=== PATIENT | male | born 1970 | race African-American/Black ===

== ENCOUNTER 2016-09-07 20:25 | Emergency (ER) | payer MEDICARE, MEDICAID ==
[~2016-09-07] VITALS: Ht 175.3 cm; Wt 116.1 kg
[~2016-09-07 20:25] MED LIST: ACHD5005 PO; AMIT25TA9 PO; CYCL10TA9 PO; HYDR-3816 PO; HYDR-757 PO; LEVO500T69 PO; LOXA25CA PO; METO-270 PO; PARO20TA5 PO; PRD20T PO; SULF1TAB35 PO
[2016-09-07] MEDS ORDERED: ASPIRIN 81 MG CHEW (CHILDREN'S ASA) PO ONE (20:45)
[2016-09-07] MEDS ORDERED: RX-NITROGLYCERIN 0.4 MG TAB BTL 25'S SL PRN (20:45)
[2016-09-07] MEDS ORDERED: KETOROLAC 30 MG/ML VIAL IVP ONE (21:00)
[2016-09-07 21:01] LABS: INR 0.9 (0.8-1.4); PROTHROMBIN TIME PATIENT 12.3 SEC (12.2-14.7)
[2016-09-07 21:05] LABS: BASOPHILS % (AUTO) 1 % (0-10); EOSINOPHILS # (AUTO) 0.1 10^3/uL (0.0-0.3); EOSINOPHILS % (AUTO) 2 % (0-10); LYMPHOCYTES # (AUTO) 3.1 X 10^3 (1.0-4.0); LYMPHOCYTES % (AUTO) 53 % (12-44); MEAN CORPUSCULAR HEMOGLOBIN 29 PG (25-34); MEAN CORPUSCULAR HGB CONC 34 G/DL (32-36); MEAN CORPUSCULAR VOLUME 85 FL (80-99); MEAN PLATELET VOLUME 10.1 FL (7.4-10.4); MONOCYTES # (AUTO) 0.4 X 10^3 (0.0-1.0); MONOCYTES % (AUTO) 7 % (0-12); NEUTROPHILS # (AUTO) 2.3 X 10^3 (1.8-7.8); NEUTROPHILS % (AUTO) 38 % (42-75); PLATELET COUNT 266 10^3/uL (130-400); RED CELL DISTRIBUTION WIDTH 13.5 % (10.0-14.5); WHITE BLOOD COUNT 5.9 10^3/uL (4.3-11.0)
[2016-09-07 21:12] LABS: ALANINE AMINOTRANSFERASE 30 U/L (0-55); ALBUMIN 4.1 G/DL (3.2-4.5); AMYLASE 75 U/L (25-125); ANION GAP 8 MMOL/L (5-14); ASPARTATE AMINO TRANSFERASE 26 U/L (5-34); BILIRUBIN,TOTAL 0.3 MG/DL (0.1-1.0); BLOOD UREA NITROGEN 10 MG/DL (7-18); BUN/CREATININE RATIO 8; CALCIUM 8.9 MG/DL (8.5-10.1); CARBON DIOXIDE 24 MMOL/L (21-32); CHLORIDE 109 MMOL/L (98-107); CREATINE KINASE 539 U/L (30-200); GFR ESTIMATED > 60; GLUCOSE 92 MG/DL (70-105); LIPASE 21 U/L (8-78); MAGNESIUM 2.2 MG/DL (1.8-2.4); POTASSIUM 3.7 MMOL/L (3.6-5.0); SODIUM 141 MMOL/L (135-145); TOTAL PROTEIN 6.8 G/DL (6.4-8.2)
[2016-09-07 21:19] LABS: TROPONIN I < 0.30 NG/ML (<0.30)
--- NOTE | 2016-09-07 21:44 | Diagnostic Imaging Report ---
INDICATION: Chest pain radiating to the back and left shoulder. EXAMINATION: Chest 09/07/2016 COMPARISON: 12/15/2012 FINDINGS: The heart is slightly prominent. The pulmonary vasculature is normal in appearance. There are no infiltrates or effusions. There is no pneumothorax. IMPRESSION: 1. No acute process. Dictated by: Dictated on workstation # [id number]
--- NOTE | 2016-09-07 21:51 | Diagnostic Imaging Report ---
INDICATION: Chest pain for four days. Sore throat. Headache. EXAMINATION: CT brain and CT cervical spine, 08/19/2016. COMPARISON: No priors available for comparison. CT BRAIN: No acute hemorrhage or infarct is seen. There is no mass, mass effect or midline shift and there is no hydrocephalus. The visualized sinuses demonstrate no acute disease. A hyperdensity extends into the right maxillary sinus which appears to represent a portion of the patient's tooth, perhaps impacted into the sinus. A more anteriorly located density is noted and appears to represent a possible osteoma/bone island with a nonspecific excrescence extending into the right anterior maxillary sinus, nonspecific as well, but fairly benign in appearance. The remaining sinuses demonstrate no gross abnormality. Visualized mastoid air cells appear clear. IMPRESSION: 1. No acute intracranial process. 2. Sinus findings in the right maxillary sinus, as discussed above, likely all of a chronic and benign etiology but a followup with a CT of the sinuses on a nonemergent basis could be performed as clinically warranted. CT CERVICAL SPINE: There is normal height and alignment of the vertebral bodies. No acute fractures or subluxations are appreciated. Lung apices demonstrate nonspecific linear densities, posteriorly, and bilaterally symmetric; therefore, likely a benign process, perhaps focal scarring. The prevertebral soft tissues demonstrate no evidence for acute abnormality. IMPRESSION: Incidental findings discussed above. No acute osseous abnormality. Dictated by: Dictated on workstation # [id number]
[2016-09-07] MEDS ORDERED: RX-NAPROXEN (NAPROSYN) 250 MG TAB PPK#4 PO STA (22:33)
[2016-09-07] MEDS ORDERED: CYCL10TA9 PO (22:38)
[2016-09-07] MEDS ORDERED: HYDR-87 PO (22:38)
--- NOTE | 2016-09-07 22:38 | ED Chest Pain ---
General Chief Complaint: Chest Pain Stated Complaint: CHEST PAIN/L ARM NUMBNESS/SORE THROAT Nursing Triage Note: pt c/o chest pain x 4 days, with tingling in left arm. sore throat starting yesterday. Nursing Sepsis Screen: No Definite Risk Source: patient History of Present Illness Time seen by provider: 20:20 Initial Comments PT ARRIVES VIA POV FROM HOME C/O CHEST PAIN X 4-5 DAYS, RADIATES TO LEFT TRAPEZIUS AREA C/O LEFT ARM NUMBNESS/TINGLING--NO MOTOR DEFICITS STATES ARM IS WORSE TODAY SYMPTOMS ARE CONSTANT, AND NOTHING WORSENS OR IMPROVES PAIN RATES PAIN 10/10 NO SHORTNESS OF BREATH NO SWEATS NO COUGH NO FEVER NO SWELLING IN LEGS/ FEET OR PAIN IN CALVES NO NAUSEA/VOMITING NO DIZZINESS NO PALPITATIONS ALSO C/O SORE THROAT SINCE YESTERDAY--ALL FAMILY SICK WITH STREP THROAT PCP:[facility] Allergies and Home Medications Allergies Coded Allergies: No Known Drug Allergies (Unverified , 12/15/12) Home Medications Amitriptyline HCl 25 Mg Tablet #90 75 MG PO HS (Reported) Cyclobenzaprine HCl 10 Mg Tablet #15 10 MG PO Q8H PRN PRN SPASMS Prescribed by: FARHAD GALLEGO on 01/02/16 0312 Cyclobenzaprine HCl 10 Mg Tablet #15 10 MG PO Q8H Prescribed by: ORIANA MCNULTY on 09/07/162237 Hydrocodone/Ibuprofen 1 Each Tablet #15 1-2 EACH PO Q4H Prescribed by: ORIANA MCNULTY on 09/07/162237 Loxapine Succinate 25 Mg Capsule #30 1 CAP PO DAILY (Reported) Metoprolol Succinate 25 Mg Tab.er.24h #30 1 TAB PO DAILY (Reported) Paroxetine HCl 20 Mg Tablet #30 1 TAB PO DAILY (Reported) Review of Systems Constitutional: no symptoms reported EENTM: See HPI Throat Pain Respiratory: No Symptoms Reported Cardiovascular: See HPI Chest PainDenies Edema, Denies Lightheadedness, Denies Palpitations, Denies Syncope Gastrointestinal: No Symptoms Reported Genitourinary: No Symptoms Reported Musculoskeletal: see HPI Skin: no symptoms reported Psychiatric/Neurological: See HPI Numbness Paresthesia TinglingDenies Weakness Endocrine: No Symptoms Reported Hematologic/Lymphatic: No Symptoms Reported Past Jpuvyci-Sxizvt-Fdtqes Hx Patient Social History Alcohol Use: Regular Use (12 PACK/MONTH) Recreational Drug Use: Yes (THC) Smoking Status: Current Everyday Smoker (< 1 PPD) Recent Foreign Travel: No Contact w/Someone Who Travel: No Recent Infectious Disease Expo: No Recent Hopitalizations: No Physical Abuse Screen: No Sexual Abuse: No Seasonal Allergies Seasonal Allergies: Yes Surgeries HX Surgeries: Yes (LT FOOT TRAUMA) Respiratory Hx Respiratory Disorders: No Cardiovascular Hx Cardiac Disorders: Yes Cardiac Disorders: Hypertension Neurological Hx Neurological Disorders: Yes Neurological Disorders: Seizure Disorder Reproductive System Hx Reproductive Disorders: No Genitourinary Hx Genitourinary Disorders: Yes (FREQUENT URINATION) Gastrointestinal Hx Gastrointestinal Disorders: No Musculoskeletal Hx Musculoskeletal Disorders: Yes (LEFT KNEE PROBLEMS) Endocrine Hx Endocrine Disorders: No HEENT HX ENT Disorders: No Cancer Hx Cancer: No Psychosocial Hx Psychiatric Problems: Yes Behavioral Health Disorders: Anxiety, Suicide Attempts, Schizophrenia, Depression Integumentary HX Skin/Integumentary Disorder: No Blood Transfusions Hx Blood Disorders: No Adverse Reaction to a Blood Tr: No Physical Exam Vital Signs Vital Sign - Last 12Hours 09/07/16 09/07/16 20:35 22:57 Temp 97.5 Pulse 80 Resp 16 B/P 176/112 Pulse Ox 96 O2 Delivery Room Air Capillary Refill : Less Than 3 Seconds General Appearance: No Apparent Distress WD/WN Other (FLAT AFFECT. DOES NOT APPEAR TO BE IN ANY DISCOMFORT) HEENT: PERRL/EOMI Normal ENT Inspection Neck: Full Range of Motion Normal Inspection Non Tender SuppleNo Carotid Bruit , No JVD Respiratory: Normal Breath Sounds No Accessory Muscle Use No Respiratory Distress Other (MARKED TENDERNESS TO LEFT CHEST WALL, LEFT LATERAL NECK AND TRAPEZIUS MUSCLE WITH MUSCLE SPASM. PALPATION DRAMATICALLY REPRODUCES PAIN) Cardiovascular: Regular Rate, Rhythm No Edema No JVD No Murmur Normal Peripheral Pulses Gastrointestinal: Normal Bowel Sounds No Organomegaly No Pulsatile Mass Non Tender Soft Extremity: Normal Capillary Refill Normal Inspection Normal Range of Motion Non Tender No Calf Tenderness No Pedal Edema Neurologic/Psychiatric: Alert Oriented x3 No Motor/Sensory Deficits filter tank tender helper head II- XII Norm as Tested Skin: Normal Color Warm/DryNo Rash Laceration Repair : Suture Size: 5-0 Progress/Results/Core Measures Results/Orders Lab Results Laboratory Tests Test 09/07/16 20:43 Range/Units Activated Partial Thromboplast Time 31 24-35 SEC Alanine Aminotransferase (ALT/SGPT) 30 0-55 U/L Albumin 4.1 3.2-4.5 G/DL Alkaline Phosphatase 73 40-136 U/L Amylase Level 75 25-125 U/L Anion Gap 8 5-14 MMOL/L Aspartate Amino Transf (AST/SGOT) 26 5-34 U/L B-Type Natriuretic Peptide < 10.0 <100.0 PG/ML BUN/Creatinine Ratio 8 Basophils # (Auto) 0.0 0.0-0.1 10^3/uL Basophils (%) (Auto) 1 0-10 % Blood Urea Nitrogen 10 7-18 MG/DL Calcium Level 8.9 8.5-10.1 MG/DL Carbon Dioxide Level 24 21-32 MMOL/L Chloride Level 109 H 98-107 MMOL/L Creatine Kinase MB 2.4 <6.6 NG/ML Creatinine 1.30 0.60-1.30 MG/DL Eosinophils # (Auto) 0.1 0.0-0.3 10^3/uL Eosinophils (%) (Auto) 2 0-10 % Estimat Glomerular Filtration Rate > 60 Glucose Level 92 70-105 MG/DL Hematocrit 42 40-54 % Hemoglobin 14.0 13.3-17.7 G/DL INR Comment 0.9 0.8-1.4 Lipase 21 8-78 U/L Lymphocytes # (Auto) 3.1 1.0-4.0 X 10^3 Lymphocytes (%) (Auto) 53 H 12-44 % Magnesium Level 2.2 1.8-2.4 MG/DL Mean Corpuscular Hemoglobin 29 25-34 PG Mean Corpuscular Hemoglobin Concent 34 32-36 G/DL Mean Corpuscular Volume 85 80-99 FL Mean Platelet Volume 10.1 7.4-10.4 FL Monocytes # (Auto) 0.4 0.0-1.0 X 10^3 Monocytes (%) (Auto) 7 0-12 % Neutrophils # (Auto) 2.3 1.8-7.8 X 10^3 Neutrophils (%) (Auto) 38 L 42-75 % Platelet Count 266 130-400 10^3/uL Potassium Level 3.7 3.6-5.0 MMOL/L Prothrombin Time 12.3 12.2-14.7 SEC Red Blood Count 4.90 4.35-5.85 10^6/uL Red Cell Distribution Width 13.5 10.0-14.5 % Sodium Level 141 135-145 MMOL/L Total Bilirubin 0.3 0.1-1.0 MG/DL Total Creatine Kinase 539 H 30-200 U/L Total Protein 6.8 6.4-8.2 G/DL Troponin I < 0.30 <0.30 NG/ML White Blood Count 5.9 4.3-11.0 10^3/uL My Orders Orders-ORIANA MCNULTY DO Amylase (09/07/16 20:33) Cbc With Automated Diff (09/07/16 20:33) Comprehensive Metabolic Panel (09/07/16 20:33) Creatine Kinase (09/07/16 20:33) Creatine Kinase Mb (09/07/16 20:33) Lipase (09/07/16 20:33) Partial Thromboplastin Time (09/07/16 20:33) Protime With Inr (09/07/16 20:33) Troponin I (09/07/16 20:33) Chest 1 View, Ap/Pa Only (09/07/16 20:33) O2 (09/07/16 20:33) Ekg Tracing (09/07/16 20:33) Aspirin Chewable Tablet (Baby Aspirin Ch (09/07/16 20:45) Rx-Nitroglycerin Sl Tabs (Rx-Nitrostat S (09/07/16 20:45) BNP (09/07/16 20:33) Monitor-Rhythm Ecg Trace Only (09/07/16 20:33) Magnesium (09/07/16 20:33) Ketorolac Injection (Toradol Injection) (09/07/16 21:00) Ct Head/Cervical Spine Wo (09/07/16 20:54) Rx-Naproxen (Rx-Naprosyn) (09/07/16 22:33) Rx-Acetaminophen/Codeine (Rx-Tylenol #3) (09/07/16 22:45) Medications Given in ED Vital Signs/I&O Vital Sign - Last 12Hours 09/07/16 09/07/16 09/07/16 20:35 20:35 22:57 Temp 97.5 Pulse 80 66 Resp 16 13 B/P 176/112 Pulse Ox 96 O2 Delivery Room Air Room Air Room Air Blood Pressure Mean: 133 Progress Note : Progress Note PAIN RESOLVED WITH TORADOL ECG Initial ECG Impression Time: 20:42 Initial ECG Rate: 77 Initial ECG Rhythm: Normal Sinus Initial ECG Impression: 1st Degree AV Block Initial ECG Comparisson: Unchanged Diagnostic Imaging Comments CXR--NO ACUTE PROCESS CT HEAD/CERVICAL SPINE--NO ACUTE PROCESS PER RADIOLOGIST REPORTS @ 2224 Reviewed: Reviewed by Me Departure Impression Impression: Primary Impression: Left-sided chest wall pain Additional Impressions: LEFT TRAPEZIUS MUSCLE PAIN AND SPASMS Tingling of left upper extremity Disposition: HOME, SELF-CARE Condition: Improved Departure-Patient Inst. Referrals: NO,LOCAL PHYSICIAN (PCP/Family) Primary Care Physician Patient Instructions: Chest Pain That Is Not Caused by the Heart (DC), Muscle Spasms (DC), Muscle and Bone Pain (DC) Add. Discharge Instructions: MOIST HEAT TO SORE AREAS AT 20 MINUTE INTERVALS FOLLOW UP WITH YOUR DR IN 2-3 DAYS FOR FURTHER CARE RETURN TO ER IF WORSE All discharge instructions reviewed with patient and/or family. Voiced understanding. Scripts Hydrocodone/Ibuprofen (Hydrocodone-Ibuprofen 7.5-200)1 Each Tablet1-2 Each PO Q4H Pain #15 TAB Prov:ORIANA MCNULTY DO 09/07/16 Cyclobenzaprine HCl 10 Mg Fwsyse16 Mg PO Q8H #15 TAB Prov:ORIANA MCNULTY DO 09/07/16 ORIANA MCNULTY DO Sep 07, 2016 22:38
[2016-09-07] MEDS ORDERED: RX-ACETAMINOPHEN/CODEINE TAB PPK #4 PO SCH (22:45)
[2016-09-07 22:57] VITALS: BP 137/95
== END 2016-09-07 22:57 | disposition home or self-care (01) ==
LOC: EDUNIT# 20:25 → ER 20:27
DX: R07.89 Other chest pain (principal); R20.2 Paresthesia of skin; I10 Essential (primary) hypertension; G40.909 Epilepsy, unspecified, not intractable, without status epilepticus; F17.210 Nicotine dependence, cigarettes, uncomplicated; Z79.899 Other long term (current) drug therapy
CPT/HCPCS: 36415; 70450; 71010; 72125; 80053; 82150; 82550; 82553; 83690; 83735; 83880; 84484; 85025; 85610; 85730; 93005; 96374

== ENCOUNTER 2016-12-11 11:33 | Emergency (ER) | payer MEDICARE, MEDICAID ==
[~2016-12-11] VITALS: Ht 175.3 cm; Wt 106.6 kg
[~2016-12-11 11:33] MED LIST changes: +HYDR-87 PO
--- NOTE | 2016-12-11 11:41 | ED Lower Extremity ---
General Stated Complaint: LEFT ANKLE/FOOT INJURY Source: patient Exam Limitations: no limitations History of Present Illness Time seen by provider: 11:39 Initial Comments To ER with pain in the left ankle and foot after twisting the foot when it hit a dumbbell wall walking into upon shop yesterday. Has a history of previous fracture to this foot. He is taken nothing at home for pain but rates his pain at 10 out of 10. Onset: yesterday Severity: moderate Pain/Injury Location: left foot, left ankle Method of Injury: twisted Modifying Factors: Worse With Movement Allergies and Home Medications Allergies Coded Allergies: No Known Drug Allergies (Unverified , 12/15/12) Home Medications Amitriptyline HCl 25 Mg Tablet, 75 MG PO HS, #90 (Reported) Cyclobenzaprine HCl 10 Mg Tablet, 10 MG PO Q8H PRN for SPASMS, #15 Prescribed by: FARHAD GALLEGO on 01/02/16 0312 Cyclobenzaprine HCl 10 Mg Tablet, 10 MG PO Q8H, #15 Prescribed by: ORIANA MCNULTY on 09/07/16 2238 Loxapine Succinate 25 Mg Capsule, 1 CAP PO DAILY, #30 (Reported) Metoprolol Succinate 25 Mg Tab.er.24h, 1 TAB PO DAILY, #30 (Reported) Paroxetine HCl 20 Mg Tablet, 1 TAB PO DAILY, #30 (Reported) Constitutional: see HPI EENTM: see HPI Respiratory: no symptoms reported Cardiovascular: no symptoms reported Genitourinary: no symptoms reported Musculoskeletal: see HPI Skin: no symptoms reported Psychiatric/Neurological: No Symptoms Reported Past Feczgin-Brsira-Taalxn Hx Patient Social History Recent Foreign Travel: No Contact w/Someone Who Travel: No Recent Hopitalizations: No Seasonal Allergies Seasonal Allergies: Yes Surgeries HX Surgeries: Yes (LT FOOT TRAUMA) Respiratory Hx Respiratory Disorders: No Cardiovascular Hx Cardiac Disorders: Yes Cardiac Disorders: Hypertension Neurological Hx Neurological Disorders: Yes Neurological Disorders: Seizure Disorder Reproductive System Hx Reproductive Disorders: No Genitourinary Hx Genitourinary Disorders: Yes (FREQUENT URINATION) Gastrointestinal Hx Gastrointestinal Disorders: No Musculoskeletal Hx Musculoskeletal Disorders: Yes (LEFT KNEE PROBLEMS) Endocrine Hx Endocrine Disorders: No HEENT HX ENT Disorders: No Cancer Hx Cancer: No Psychosocial Hx Psychiatric Problems: Yes Behavioral Health Disorders: Anxiety, Suicide Attempts, Schizophrenia, Depression Integumentary HX Skin/Integumentary Disorder: No Blood Transfusions Hx Blood Disorders: No Adverse Reaction to a Blood Tr: No Physical Exam Vital Signs Vital Sign - Last 12Hours 12/11/16 11:37 Temp 97.3 Pulse 79 Resp 18 B/P (MAP) 127/81 Pulse Ox 96 O2 Delivery Room Air Capillary Refill : General Appearance: WD/WN, no apparent distress HEENT: PERRL/EOMI, normal ENT inspection Respiratory: no respiratory distress, no accessory muscle use Hips: bilateral hip non-tender, bilateral hip normal inspection, bilateral hip normal range of motion Legs: bilateral leg non-tender, bilateral leg normal inspection, bilateral leg normal range of motion Knees: bilateral knee non-tender, bilateral knee normal inspection, bilateral knee normal range of motion Ankles: bilateral ankle normal inspection, bilateral ankle normal range of motion, left ankle pain, left ankle soft tissue tenderness, left ankle other ( no swelling or obvious deformity) Feet: bilateral foot normal inspection, bilateral foot normal range of motion Neurologic/Tendon: normal sensation, normal motor functions Neurologic/Psychiatric: alert, normal mood/affect, oriented x 3 Skin: normal color, warm/dry Laceration Repair : Suture Size: 5-0 Progress/Results/Core Measures Results/Orders My Orders Orders - JULIANA CARMONA APRN Ankle, Left, 3 Views (12/11/16 11:39) Foot, Left, 3 Views (12/11/16 11:39) Ibuprofen Tablet (Motrin Tablet) (12/11/16 11:45) Medications Given in ED Current Medications Medications Dose Ordered Sig/Yazmin Route Start Time Stop Time Status Last Admin Dose Admin Ibuprofen 800 mg ONCE ONCE PO 12/11/16 11:45 12/11/16 11:46 DC 12/11/16 11:54 800 MG Vital Signs/I&O Vital Sign - Last 12Hours 12/11/16 11:37 Temp 97.3 Pulse 79 Resp 18 B/P (MAP) 127/81 Pulse Ox 96 O2 Delivery Room Air Departure Impression Impression: Primary Impression: Ankle sprain Disposition: 01 HOME, SELF-CARE Condition: Stable Departure-Patient Inst. Decision time for Depature: 12:09 Referrals: [facility] (PCP/Family) Primary Care Physician Patient Instructions: Ankle Sprain (DC) Add. Discharge Instructions: 1. Ice pack to the ankle 2. Crutches as needed for pain with walking 3. Follow-up with your doctor next week for any persistent pain 4. Scripts Naproxen (Naproxen) 500 Mg Tablet 500 MG PO BID Y for PAIN-MODERATE, #14 TAB Prov: JULIANA CARMONA APRN 12/11/16 JULIANA CARMONA APRN Dec 11, 2016 11:41
[2016-12-11] MEDS ORDERED: IBUPROFEN 800 MG (MOTRIN) TAB PO ONE (11:45)
--- NOTE | 2016-12-11 12:04 | Diagnostic Imaging Report ---
Three views of the left ankle. INDICATION: Left ankle pain. FINDINGS: No fracture, dislocation or radiopaque foreign body. The ankle mortise is normal in configuration. IMPRESSION: Unremarkable exam. Dictated by: Dictated on workstation # [id number]
--- NOTE | 2016-12-11 12:04 | Diagnostic Imaging Report ---
3 views of the left foot. INDICATION: Left foot pain. FINDINGS: No fracture, dislocation or radiopaque foreign body seen. Joint alignment is satisfactory. There is mild dorsal osteophyte formation seen at the tarsometatarsal joints. IMPRESSION: Mild degenerative changes. Dictated by: Dictated on workstation # [id number]
[2016-12-11] MEDS ORDERED: NAPR500T3 PO (12:10)
[2016-12-11 12:26] VITALS: BP 127/81
== END 2016-12-11 12:24 | disposition home or self-care (01) ==
LOC: EDUNIT# 11:33 → ER 11:36
DX: S99.912A Unspecified injury of left ankle, initial encounter (principal); I10 Essential (primary) hypertension; G40.909 Epilepsy, unspecified, not intractable, without status epilepticus; Z79.899 Other long term (current) drug therapy; W21.89XA Striking against or struck by other sports equipment, initial encounter; Y92.513 Shop (commercial) as the place of occurrence of the external cause; Y99.8 Other external cause status
CPT/HCPCS: 73610; 73630; 99283

== ENCOUNTER 2017-07-17 19:28 | Emergency (ER) | payer OTHER, MEDICARE, MEDICAID ==
[~2017-07-17] VITALS: Ht 175.3 cm; Wt 119.7 kg
[~2017-07-17 19:28] MED LIST changes: -METO-270 PO; +METO-387 PO; +NAPR500T4 PO
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
[2017-07-17] MEDS ORDERED: RX-CYCLOBENZAPRINE 10 MG (FLEXERIL) TAB PPK#3 PO STA (21:54)
[2017-07-17] MEDS ORDERED: RX-NAPROXEN (NAPROSYN) 250 MG TAB PPK#4 PO STA (21:54)
[2017-07-17] MEDS ORDERED: NAPR500T4 PO (21:54)
[2017-07-17] MEDS ORDERED: CYCL10TA9 PO (21:54)
[2017-07-17 21:59] VITALS: BP 158/89
== END 2017-07-17 21:59 | disposition home or self-care (01) ==
LOC: EDUNIT# 19:28 → ER 19:30
DX: S16.1XXA Strain of muscle, fascia and tendon at neck level, initial encounter (principal); S29.012A Strain of muscle and tendon of back wall of thorax, initial encounter; R91.1 Solitary pulmonary nodule; I10 Essential (primary) hypertension; G40.909 Epilepsy, unspecified, not intractable, without status epilepticus; F41.9 Anxiety disorder, unspecified; F32.9 Major depressive disorder, single episode, unspecified; F20.9 Schizophrenia, unspecified; Z91.5 Personal history of self-harm; V43.52XA Car driver injured in collision with other type car in traffic accident, initial encounter
CPT/HCPCS: 70450; 72125; 72128; 99283

== ENCOUNTER → 2017-07-24 | Outpatient (CLI) | payer MEDICARE, MEDICAID ==
[~2017-07-24] MED LIST changes: +IOHEXOL 350 MG/ML 100 ML (OMNIPAQUE 350) VIAL IV ONE; +NS 100 ML (IVPB) BAG IV ONE
--- NOTE | 2017-07-24 15:53 | Diagnostic Imaging Report ---
PROCEDURE: CT chest with contrast only. TECHNIQUE: Multiple contiguous axial images were obtained through the chest after administration of intravenous contrast. INDICATION: Left chest pain. Pulmonary nodule. CONTRAST: 75 mL of Omnipaque 350 was administered intravenously. FINDINGS: Groundglass nodules are seen in the right upper lobe in the suprahilar region up to 8 mm in size. These appear of decreased density compared to the 07/17/2017 exam. This is in favor of pneumonitis. No significant nodule or mass is seen in the left lung. The heart size is normal. No pericardial or pleural effusion. The thoracic aorta is normal in caliber. There is a small pericardial effusion minimally distending the pericardial recesses. There is no mediastinal mass or lymphadenopathy. No hilar or axillary lymphadenopathy is seen. There is a left adrenal nodule measuring 1.9 cm in size with low density seen favoring an adenoma. The osseous structures appear grossly unremarkable. IMPRESSION: 1. Groundglass density nodules up to 8 mm in size in the right upper lobe in the suprahilar region are favored to be pneumonitis related. A 3 month followup low-dose protocol CT scan of the chest is recommended to ensure stability or resolution. 2. Left adrenal nodule measuring 1.9 cm is favored to be an adenoma. Dictated by: Dictated on workstation # [id number]
== END ==
LOC: RAD 12:32
PROVIDERS: ATTEND Internal Medicine
DX: R91.8 Other nonspecific abnormal finding of lung field (principal); E04.1 Nontoxic single thyroid nodule
CPT/HCPCS: 71260

== ENCOUNTER 2017-10-03 13:00 | Outpatient (RCR) | payer OTHER, MEDICARE, MEDICAID ==
[~2017-10-03 13:00] MED LIST changes: +HYDR-34 PO; -HYDR-3816 PO; -IOHEXOL 350 MG/ML 100 ML (OMNIPAQUE 350) VIAL IV ONE; -NS 100 ML (IVPB) BAG IV ONE
== END 2017-10-03 13:26 | disposition home or self-care (01) ==
PROVIDERS: ATTEND Internal Medicine
DX: M54.5 Low back pain (principal)

== ENCOUNTER → 2017-10-25 | Outpatient (CLI) | payer MEDICARE, MEDICAID ==
[~2017-10-25] MED LIST changes: +CATHETER FLUSH 10 ML SYR IV PRN; +IOHEXOL 350 MG/ML 100 ML (OMNIPAQUE 350) VIAL IV ONE; +NAPR-915 PO; -NAPR500T4 PO; +NS 250 ML (IVPB) BAG IV ONE
--- NOTE | 2017-10-25 09:13 | Diagnostic Imaging Report ---
PROCEDURE: CT chest with contrast only. TECHNIQUE: Multiple contiguous axial images were obtained through the chest after administration of intravenous contrast. INDICATION: Pulmonary nodules. FINDINGS: No axillary, hilar or mediastinal lymphadenopathy is seen. There is minimal pericardial fluid in the superior pericardial recess and in the region of the AP window, similar to prior study. No pleural fluid is detected. Parenchymal evaluation demonstrates the lungs to be clear. The previously noted groundglass and slightly nodular densities in the right upper lobe have resolved suggestive of resolving pneumonia. No new infiltrate is seen. The upper abdomen is unremarkable. IMPRESSION: Resolution of previously noted right upper lobe groundglass infiltrates when compared with examination from 07/24/2017. Dictated by: Dictated on workstation # [id number]
== END ==
LOC: RAD 08:16
PROVIDERS: ATTEND Internal Medicine
DX: R91.8 Other nonspecific abnormal finding of lung field (principal)
CPT/HCPCS: 71260

== ENCOUNTER 2017-11-19 11:08 | Emergency (ER) | payer MEDICARE, MEDICAID ==
[~2017-11-19] VITALS: Ht 175.3 cm; Wt 114.3 kg
[~2017-11-19 11:08] MED LIST changes: -CATHETER FLUSH 10 ML SYR IV PRN; -IOHEXOL 350 MG/ML 100 ML (OMNIPAQUE 350) VIAL IV ONE; -NS 250 ML (IVPB) BAG IV ONE
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
[2017-11-19] MEDS ORDERED: GABA-488 (11:31)
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
[2017-11-19] MEDS ORDERED: KETOROLAC 60 MG/2 ML VIAL IM STA (11:59)
[2017-11-19] MEDS ORDERED: ORPHENADRINE 60 MG/2 ML (NORFLEX) AMP IM STA (11:59)
[2017-11-19] MEDS ORDERED: PRD20T PO (12:41)
[2017-11-19] MEDS ORDERED: TRAM50TA2 PO (12:41)
--- NOTE | 2017-11-19 12:45 | Diagnostic Imaging Report ---
INDICATION: Left hip pain radiating to the back. TECHNIQUE: Multiple contiguous axial images were obtained through the thoracic and lumbar spine without the use of intravenous contrast. Sagittal and coronal reformations were than performed. FINDINGS: The visualized lungs are clear. The alignment of both the thoracic and lumbar spine is normal. The vertebral body heights are well-maintained. There is no fracture or traumatic subluxation. There are no bony encroachment upon the spinal canal. Soft tissue structures are grossly unremarkable. There appears to be some broad-based annular bulging at L5-S1 where there is also some facet disease. There is at least moderate central spinal stenosis with encroachment upon the lateral recess bilaterally. There also appears to be mild bilateral neural foraminal encroachment. IMPRESSION: Bibasal annular bulging and facet disease at L5-S1 resulting in moderate spinal stenosis and encroachment upon the lateral recess bilaterally. There may be some mild bilateral neural foraminal encroachment as well. This could be better evaluated with MRI. Otherwise unremarkable CT of the thoracic and lumbar spine. Dictated by: Dictated on workstation # [id number]
[2017-11-19 13:09] VITALS: BP 160/93
== END 2017-11-19 13:09 | disposition home or self-care (01) ==
LOC: EDUNIT# 11:08 → ER 11:10
DX: M54.16 Radiculopathy, lumbar region (principal); F41.9 Anxiety disorder, unspecified; F20.9 Schizophrenia, unspecified; F32.9 Major depressive disorder, single episode, unspecified; G62.9 Polyneuropathy, unspecified; I10 Essential (primary) hypertension; G40.909 Epilepsy, unspecified, not intractable, without status epilepticus; F17.200 Nicotine dependence, unspecified, uncomplicated; Z91.5 Personal history of self-harm; Z91.81 History of falling; Z87.828 Personal history of other (healed) physical injury and trauma
CPT/HCPCS: 72128; 72131; 96372

== ENCOUNTER → 2018-02-01 | Outpatient (CLI) | payer MEDICARE, MEDICAID ==
[~2018-02-01] MED LIST changes: +GABA-488; +TRAM50TA2 PO
--- NOTE | 2018-02-01 09:58 | Diagnostic Imaging Report ---
PROCEDURE: MRI lumbar spine. TECHNIQUE: Multiplanar, multisequence MRI of the lumbar spine was performed without contrast. INDICATION: Back pain with left hip pain. COMPARISON: Comparison is made with a CT examination performed on November 19, 2017 FINDINGS: For the purposes of numerical assignment, there is lumbarization of the S1 segment with transitional anatomy. Last fully formed disc space is designated as L5-S1. Alignment of the lumbar spine appears within normal limits. The vertebral body heights appear well maintained. There is no focal marrow signal abnormality demonstrated to suggest an acute osseous injury or underlying osseous lesion. Facets are normally aligned. There is no MR evidence of a pars defect. The lower thoracic cord demonstrates no evidence of signal abnormality or abnormal expansion. The conus terminates at a normal level. There is no significant lower thoracic canal stenosis. L1-L2, L2-L3, L3-L4 and L4-L5 are unremarkable without evidence of disc bulge or herniation or significant stenosis. At the L5-S1 level, there is disc degeneration with a diffuse annular disc bulging present. There is mild facet hypertrophy and ligamentous thickening. There is mild narrowing of the central canal. There is moderate narrowing of the lateral recesses. There is rcyl-um-mucfiikr left and moderate right neuroforaminal stenosis. Paraspinal soft tissues are unremarkable. The aorta is normal in caliber. The kidneys appear nonobstructed. IMPRESSION: 1. Normal height and alignment of the lumbar spine without evidence of an acute osseous abnormality. 2. Disc degeneration with annular disc bulging and facet arthropathy at the L5-S1 level. This results in moderate narrowing of the lateral recesses which may impinge upon the S1 roots. There is also right greater than left neuroforaminal stenosis which could impact the exiting L5 roots. No other significant stenosis demonstrated. Dictated by: Dictated on workstation # [id number]
== END ==
LOC: RAD 08:13
PROVIDERS: ATTEND Internal Medicine
DX: M51.17 Intervertebral disc disorders with radiculopathy, lumbosacral region (principal); M99.73 Connective tissue and disc stenosis of intervertebral foramina of lumbar region
CPT/HCPCS: 72148

== ENCOUNTER 2018-03-04 11:03 | Day surgery (SDC) | payer MEDICARE, MEDICAID ==
[2018-03-04] VITALS (12 sets, daily range): BP systolic 140–174; BP diastolic 79–111
[~2018-03-04] VITALS: Ht 175.3 cm; Wt 115.2 kg
--- OUTSIDE RECORDS SUMMARY | 2018-03-04 11:08 | XMS REPORT ---
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 Active 29672577 ALLERGIES No Known Allergies ENCOUNTERS Encounter Location Date Diagnosis [place] [id number] [address] Feb, Other chest pain R07.89 and Lumbar radiculopathy M54.16 [place] [address] [address] Jan, Radiculopathy of lumbar region M54.16 [place] [address] [place] [id number] [place] [address] Jan, [facility] [address] [address] 18 Jan, 2018 Radiculopathy of lumbar region M54.16 [facility] [address] [place] [id number] [place] [address] Jan, [facility] [address] [address] 07 Jan, 2018 Lumbar radiculopathy M54.16 [facility] [address] [place] [id number] [place] [address] Nov, Lumbar radiculopathy M54.16 [facility] [address] [place] [id number] [address] Oct, [facility] [address] [place] [id number] [place] [address] Oct, Pulmonary nodules R91.8 ; Lumbar radiculopathy M54.16 ; Generalized idiopathic epilepsy and epileptic syndromes, without status epilepticus, 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 and Schizophrenia, unspecified type F20.9 [facility] [address] [place] [id number] [place] [address] Sep, Lumbar back pain M54.5 [facility] [address] [place] [id number] [place] [address] Sep, [facility] [address] [place] [id number] [place] [address] Sep, Pulmonary nodules/lesions, multiple R91.8 [facility] [address] [place] [id number] [place] [address] Aug, [facility] [address] [place] [id number] [place] [address] Aug, Lumbar back pain M54.5 [facility] [address] [place] [id number] [place] [address] Jul, [facility] [address] [place] [id number] [place] [address] Jul, [facility] [address] [place] [id number] [place] [address] Jul, Lumbar back pain M54.5 [facility] [address] [place] [id number] [place] [address] Jul, Pulmonary nodules/lesions, multiple R91.8 [facility] [id number] [place] [address] Jun, Pulmonary nodules/lesions, multiple R91.8 [facility] [address] [place] [id number] [place] [address] Jun, [facility] [address] [place] [id number] [place] [address] December, [facility] [address] [place] [id number] [place] [address] Jan, Migraine without status migrainosus, not intractable, unspecified migraine type G43.909 [facility] [address] [address] December, [facility] [address] [address] December, Right groin pain R10.30 and Generalized headaches R51 [facility] [address] [place] [id number] [place] [address] Nov, [facility] [address] [address] Nov, [facility] [address] [place] [id number] [place] [address] Aug, Right hand fracture, closed, initial encounter S62.91XA ; Cough R05 and High blood pressure (not hypertension) R03.0 [facility] [address] [place] [id number] [place] [address] Apr, [facility] [address] [place] [id number] [place] [address] Mar, [facility] [address] [place] [id number] [place] [address] Feb, Tinea corporis 110.5 [facility] [address] [address] 14 Nov, 2014 [facility] [address] [place] [id number] [place] [address] Nov, [facility] [address] [place] [id number] [place] [address] Apr, [facility] [address] [facility] [id number] [place] [address] Apr, [facility] [address] [facility] [id number] [place] [address] Jan, [facility] [address] [facility] [id number] [place] [address] December, IMMUNIZATIONS No Known Immunizations SOCIAL HISTORY Never Assessed REASON FOR VISIT back pain, Pt describes the pain in his lower/middle back. Needs scheduled for Medicare AMADA Roberts MA, PHQ2, AUDIT C PLAN OF CARE Activity Details Follow Up 3 Months Reason: VITAL SIGNS Height 69 in 2017-10-22 Weight 246 lbs 2017-10-22 Temperature 97.9 degrees Fahrenheit 2017-10-22 Heart Rate 80 bpm 2017-10-22 Respiratory Rate 20 2017-10-22 BMI 36.32 kg/m2 2017-10-22 Blood pressure systolic 120 mmHg 2017-10-22 Blood pressure diastolic 70 mmHg 2017-10-22 MEDICATIONS Medication Instructions Dosage Frequency Start Date End Date Duration Status Gabapentin 300 MG Orally 3 times a day 1 cap 8h Oct, 30 day(s) Active Cyclobenzaprine HCl 10 mg Orally at bedtime 1 tab Oct, Active Amitriptyline HCl 25 MG Orally at bedtime 2-3 tablets Active Naproxen 500 mg Orally every 12 hrs 1 tablet with food or milk as needed 12h Jul, Active Zyprexa 20 MG Orally Once a day 1 tablet 24h Active Depakote 500 MG Orally Once a day 2 tablets 24h Active Loxapine Succinate 50 MG Orally Once a day 1 capsule 24h Active RESULTS Name Result Date Reference Range CT Scan : Chest w/ Contrast 2017-10-25 PROCEDURES Procedure Date Ordered Result Body Site [facility] VISIT ESTABLISHED PATIENT October 22, 2017 INSTRUCTIONS MEDICATIONS ADMINISTERED No Known Medications MEDICAL (GENERAL) HISTORY Type Description Date Medical History Hypertension Medical History Anxiety/Sleep Issues Medical History Tumer on Lung 06/2017 Surgical History pins in left foot Hospitalization History [facility] ED- Back pain 11/19/2017
--- OUTSIDE RECORDS SUMMARY | 2018-03-04 11:08 | XMS REPORT ---
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 Active 92102268 ALLERGIES No Information ENCOUNTERS Encounter Location Date Diagnosis [place] [id number] [place] [id number] [place] [address] 98347- 5289 Feb, Other chest pain R07.89 and Lumbar radiculopathy M54.16 [place] [address] [address] [id number] [place] [address] 70625- 1808 Jan, Radiculopathy of lumbar region M54.16 [place] [id number] [place] [address] 66287- 1549 Jan, [place] [id number] [place] [address] 98527- 3378 18 Jan, 2018 Radiculopathy of lumbar region M54.16 [facility] [id number] [place] [address] 54228- 7436 Jan, [place] [id number] [place] [address] 19784- 6042 07 Jan, 2018 Lumbar radiculopathy M54.16 [facility] [id number] [place] [address] 78937- 5429 Nov, Lumbar radiculopathy M54.16 [facility] [id number] [place] [address] 91798- 6884 Oct, [facility] [id number] [place] [address] 15747- 8074 Oct, Pulmonary nodules R91.8 ; Lumbar radiculopathy M54.16 ; Generalized idiopathic epilepsy and epileptic syndromes, without status epilepticus, 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 and Schizophrenia, unspecified type F20.9 [facility] [id number] [place] [address] 76678- 3848 Sep, Lumbar back pain M54.5 [facility] [id number] [place] [address] 90962- 1368 Sep, [facility] [id number] [place] [address] 12327- 3650 Sep, Pulmonary nodules/lesions, multiple R91.8 [facility] [id number] [place] [address] 18520- 5368 Aug, [facility] [id number] [place] [address] 87788- 4903 Aug, Lumbar back pain M54.5 [facility] [id number] [place] [address] 86689- 3287 Jul, [facility] [id number] [place] [address] 17853- 9705 Jul, [facility] [id number] [place] [address] 60703- 2532 Jul, Lumbar back pain M54.5 [facility] [id number] [place] [address] 85658- 5530 Jul, Pulmonary nodules/lesions, multiple R91.8 [facility] [id number] [place] [address] 93914- 5649 Jun, Pulmonary nodules/lesions, multiple R91.8 [facility] [id number] [place] [address] 89232- 4496 Jun, [facility] [id number] [place] [address] 64821- 6554 December, [facility] [id number] [place] [address] 09900- 1144 Jan, Migraine without status migrainosus, not intractable, unspecified migraine type G43.909 [facility] [address] 49987- 6931 December, [facility] [address] 71629- 5550 December, Right groin pain R10.30 and Generalized headaches R51 [facility] [id number] [place] [address] 56554- 5030 Nov, [facility] [address] 62432- 6303 Nov, [facility] [id number] [place] [address] 63423- 2070 Aug, Right hand fracture, closed, initial encounter S62.91XA ; Cough R05 and High blood pressure (not hypertension) R03.0 [facility] [id number] [place] [address] 80554- 5190 Apr, [facility] [id number] [place] [address] 86061- 6820 Mar, [facility] [id number] [place] [address] 97664- 8312 Feb, Tinea corporis 110.5 [facility] [address] 88183- 7575 Nov, [facility] [id number] [place] [address] 68512- 0905 Nov, [facility] [id number] [place] [address] 20030- 1899 Apr, [facility] [address] [facility] [id number] [place] [address]- 3067 Apr, [facility] [address] [facility] [id number] [place] [id number]- 5305 Jan, [facility] [address] [facility] [id number] [place] [phone]- 0187 December, IMMUNIZATIONS No Known Immunizations SOCIAL HISTORY Never Assessed REASON FOR VISIT Requests return call PLAN OF CARE VITAL SIGNS MEDICATIONS Unknown Medications RESULTS No Results PROCEDURES No Known procedures INSTRUCTIONS MEDICATIONS ADMINISTERED No Known Medications MEDICAL (GENERAL) HISTORY Type Description Date Medical History Hypertension Medical History Anxiety/Sleep Issues Medical History Tumer on Lung 06/2017 Surgical History pins in left foot Hospitalization History [facility] ED- Back pain 11/19/2017
--- OUTSIDE RECORDS SUMMARY | 2018-03-04 11:09 | XMS REPORT ---
Author Author ANNI LAU Organization [facility] Address [address] 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 Active 66028834 ALLERGIES No Information ENCOUNTERS Encounter Location Date Diagnosis [place] [address] 55201- 5427 Jan, Radiculopathy of lumbar region M54.16 [facility] [address] 51661- 6350 Jan, [place] [address] 04340- 3875 Jan, Lumbar radiculopathy M54.16 [place] [address] [place] [id number] [place] [address] 80237- 6014 Nov, Lumbar radiculopathy M54.16 [facility] [id number] [place] [address] 33093- 4811 Oct, [place] [address] 00173- 2151 Oct, Pulmonary nodules R91.8 ; Lumbar radiculopathy M54.16 ; Generalized idiopathic epilepsy and epileptic syndromes, without status epilepticus, 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 [id number] [place] [address] 72314- 1526 Sep, Pulmonary nodules/lesions, multiple R91.8 [facility] [id number] [place] [address] 33556- 8756 Aug, [facility] [id number] [place] [address] 59534- 8948 Aug, Lumbar back pain M54.[address] [facility] [id number] [place] [address] 40516- 5840 Jul, [facility] [id number] [place] [address] 70313- 7512 Jul, [facility] [id number] [place] [address] 74607- 3617 Jul, Lumbar back pain M54.5 [facility] [id number] [place] [address] 43587- 5092 Jul, Pulmonary nodules/lesions, multiple R91.8 [facility] [id number] [place] [address] 89775- 2372 Jun, Pulmonary nodules/lesions, multiple R91.8 [facility] [address] [place] [address] 04034- 4463 Jun, [facility] [id number] [place] [address] 43283- 8733 December, [facility] [id number] [place] [address] 11391- 1175 Jan, Migraine without status migrainosus, not intractable, unspecified migraine type G43.909 [facility] [id number] [place] [address] 44569- 2246 December, [facility] [id number] [place] [address] 42695- 7120 December, Right groin pain R10.30 and Generalized headaches R51 [facility] [address] [place] [id number] [place] [address] 28218- 8782 Nov, [facility] [id number] [place] [address] 20966- 2934 Nov, [facility] [id number] [place] [address] 21667- 2711 Aug, Right hand fracture, closed, initial encounter S62.91XA ; Cough R05 and High blood pressure (not hypertension) R03.0 [facility] [id number] [place] [address] 90309- 3185 10 Apr, 2015 [place] [id number] [place] [address] 34893- 0202 Mar, [facility] [address] [place] [id number] [place] [address] 10231- 9560 Feb, Tinea corporis 110.5 [place] [id number] [place] [address] 48789- 5182 Nov, [facility] [id number] [place] [address] 52094- 9757 Nov, [facility] [id number] [place] [address] 82109- 8576 Apr, [facility] [id number] [place] [address] 58676- 2225 Apr, [facility] [address] [place] [id number] [place] [address] 54546- 8786 Jan, [facility] [address] [place] [id number] [place] [address] 04674- 4130 December, IMMUNIZATIONS No Known Immunizations SOCIAL HISTORY [...]
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
--- OUTSIDE RECORDS SUMMARY | 2018-03-04 11:09 | XMS REPORT ---
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 Active 04788164 ALLERGIES No Information ENCOUNTERS Encounter Location Date Diagnosis [place] [address] 25344- 0153 Jan, [place] [address] 64393- 2839 Nov, Lumbar radiculopathy M54.16 [place] [address] 13966- 3378 Oct, [place] [address] [place] [id number] [place] [address] 81558- 0524 Oct, Pulmonary nodules R91.8 ; Lumbar radiculopathy M54.16 ; Generalized idiopathic epilepsy and epileptic syndromes, without status epilepticus, 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 and Schizophrenia, unspecified type F20.9 [place] [address] 61641- 6289 Sep, Lumbar back pain M54.5 [place] [address] 48450- 3534 Sep, [place] [address] 03407- 5194 Sep, Pulmonary nodules/lesions, multiple R91.8 [facility] [id number] [address]- 3424 Aug, [facility] [address] [place] [address] [id number] [place] [address] 79677- 0640 Aug, Lumbar back pain M54.5 [facility] [address] [place] [id number] [place] [address] 33614- 5746 Jul, [facility] [address] [id number] [place] [address] 07438- 8618 Jul, [facility] [address] [address] [id number] [place] [address] 86602- 8970 Jul, Lumbar back pain M54.5 [facility] [address] [id number] [place] [address] 06513- 4992 Jul, Pulmonary nodules/lesions, multiple R91.8 [facility] [address] [place] [id number] [place] [address] 49611- 6566 Jun, Pulmonary nodules/lesions, multiple R91.8 [facility] [address] [id number] [place] [address] 66199- 8923 Jun, [facility] [address] [id number] [place] [address] 87991- 8772 December, [facility] [address] [place] [address] [id number] [place] [address] 26239- 2700 Jan, Migraine without status migrainosus, not intractable, unspecified migraine type G43.909 [facility] [address] [place] [id number] [place] [address] 18949- 5146 December, [facility] [address] [id number] [place] [address] 04348- 9534 December, Right groin pain R10.30 and Generalized headaches R51 [facility] [address] [id number] [place] [address] 10455- 2974 Nov, [facility] [address], [place] [address]- 2283 Nov, [facility] [address] [id number] [place] [address] 65780- 1101 Aug, Right hand fracture, closed, initial encounter S62.91XA ; Cough R05 and High blood pressure (not hypertension) R03.0 [facility] [address] [place] [id number] [place] [address] 36795- 4804 Apr, [facility] [address] [id number] [place] [address] 26650- 0428 Mar, [facility] [address] [place] [id number] [place] [address] 34372- 1472 Feb, Tinea corporis 110.5 [facility] [address] [id number] [place] [address] 41174- 3072 Nov, [facility] [address] [id number] [place] [address] 71084- 9897 Nov, [facility] [address] [id number] [place] [address] 52091- 8029 Apr, [facility] [address] [id number] [place] [address] 60174- 0313 Apr, [facility] [address] [id number] [place] [address] 96985- 5782 Jan, [facility] [address] [address] [id number] [place] [address] [id number]- 0411 December, IMMUNIZATIONS No Known Immunizations SOCIAL HISTORY Never Assessed REASON FOR VISIT PLAN OF CARE VITAL SIGNS MEDICATIONS Unknown Medications RESULTS No Results PROCEDURES No Known procedures INSTRUCTIONS MEDICATIONS ADMINISTERED No Known Medications MEDICAL (GENERAL) HISTORY Type Description Date Medical History Hypertension Medical History Anxiety/Sleep Issues Medical History Tumer on Lung 06/2017 Surgical History pins in left foot
--- OUTSIDE RECORDS SUMMARY | 2018-03-04 11:09 | XMS REPORT ---
Author Author GUERDA RO Organization [facility] Address [address] [place] [address] Care Team Providers Care Car Inspection And Repair Manager Name Role Phone GUERDA RO Unavailable PROBLEMS Type Condition ICD9-CM Code EXL91-KW Code Onset Dates Condition Status SNOMED Code Problem Lumbar radiculopathy M54.16 Active 950380039 Problem Pulmonary nodules R91.8 Active 693813887 Problem Schizophrenia, unspecified type F20.9 Active 60067426 Problem Generalized idiopathic epilepsy and epileptic syndromes, without status epilepticus, 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 Active 66533292 ALLERGIES No Information ENCOUNTERS Encounter Location Date Diagnosis [facility] [id number] [place] [address] 65697- 9449 Jan, Radiculopathy of lumbar region M54.16 [facility] [address] [id number] [place] [address] 90743- 5159 Jan, [facility] [address] [id number] [place] [address] 20693- 0381 18 Jan, 2018 Radiculopathy of lumbar region M54.16 [place] [address] [place] [id number] [place] [address] 55551- 5140 Jan, [facility] [address] [id number] [place] [address] 48406- 3324 Jan, Lumbar radiculopathy M54.16 [facility] [address] [id number] [place] [address] 56913- 8580 Nov, Lumbar radiculopathy M54.16 [facility] [address] [id number] [place] [address] 51780- 8970 Oct, [facility] [address] [id number] [place] [address] 93040- 3804 Oct, Pulmonary nodules R91.8 ; Lumbar radiculopathy M54.16 ; Generalized idiopathic epilepsy and epileptic syndromes, without status epilepticus, 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 and Schizophrenia, unspecified type F20.9 [facility] [address] [id number] [place] [address] 75822- 1889 Sep, Lumbar back pain M54.5 [facility] [address] [id number] [place] [address] 71252- 9869 Sep, [facility] [address] [id number] [place] [address] 93860- 9229 Sep, Pulmonary nodules/lesions, multiple R91.8 [facility] [id number] [place] [address] 53058- 9648 Aug, [facility] [address] 48358- 6898 Aug, Lumbar back pain M54.5 [facility] [id number] [place] [address] 79315- 2897 Jul, [facility] [id number] [place] [address] 61886- 4561 Jul, [facility] [id number] [place] [address] 11035- 9982 Jul, Lumbar back pain M54.5 [facility] [id number] [place] [address] 35400- 0878 Jul, Pulmonary nodules/lesions, multiple R91.8 [facility] [id number] [place] [address] 22166- 8110 Jun, Pulmonary nodules/lesions, multiple R91.8 [facility] [id number] [place] [address] 66374- 8633 Jun, [facility] [id number] [place] [address] 88164- 7826 December, [facility] [address], [place] [address]- 1836 Jan, Migraine without status migrainosus, not intractable, unspecified migraine type G43.909 [facility] [id number] [place] [address] 60545- 4243 December, [facility] [id number] [place] [address] 44183- 2589 December, Right groin pain R10.30 and Generalized headaches R51 [facility] [id number] [place] [address] 28112- 9019 Nov, [facility] [id number] [place] [address] 07455- 6212 Nov, [facility] [id number] [place] [address] 85382- 8717 Aug, Right hand fracture, closed, initial encounter S62.91XA ; Cough R05 and High blood pressure (not hypertension) R03.0 [facility] [id number] [place] [address] 63693- 5131 Apr, [facility] [id number] [place] [address] 85670- 2033 Mar, [facility] [id number] [place] [address] 41302- 0651 Feb, Tinea corporis 110.5 [facility] [id number] [place] [address] 91495- 4433 Nov, [facility] [id number] [place] [address] 01640- 3908 Nov, [facility] [id number] [place] [address] 17675- 7278 Apr, [facility] [id number] [place] [address] 72214- 8538 Apr, [facility] [id number] [place] [address] [place] [id number]- [phone] Jan, [facility] [address] [facility] [id number] [place] [address]- 9044 December, IMMUNIZATIONS No Known Immunizations SOCIAL HISTORY Never Assessed REASON FOR VISIT PA CT Chest low dose PLAN OF CARE VITAL SIGNS MEDICATIONS Unknown Medications RESULTS No Results PROCEDURES No Known procedures INSTRUCTIONS MEDICATIONS ADMINISTERED No Known Medications MEDICAL (GENERAL) HISTORY Type Description Date Medical History Hypertension Medical History Anxiety/Sleep Issues Medical History Tumer on Lung 06/2017 Surgical History pins in left foot
--- OUTSIDE RECORDS SUMMARY | 2018-03-04 11:09 | XMS REPORT ---
Author Author ANNI LAU [facility] Address [address] 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 Active 61850641 ALLERGIES No Information ENCOUNTERS Encounter Location Date Diagnosis [facility] [id number] [place] [address] 24884- 9702 Jan, Radiculopathy of lumbar region M54.16 [facility] [id number] [place] [address] 63301- 2898 Jan, [facility] [id number] [place] [address] 58271- 8403 18 Jan, 2018 Radiculopathy of lumbar region M54.16 [facility] [address] [place] [address] 83141- 8828 Jan, [facility] [id number] [place] [address] 81345- 8386 Jan, Lumbar radiculopathy M54.16 [facility] [id number] [place] [address] 17767- 3986 Nov, Lumbar radiculopathy M54.16 [facility] [id number] [place] [address] 58993- 7978 Oct, [facility] [id number] [place] [address] 99291- 7220 Oct, Pulmonary nodules R91.8 ; Lumbar radiculopathy M54.16 ; Generalized idiopathic epilepsy and epileptic syndromes, without status epilepticus, 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 and Schizophrenia, unspecified type F20.9 [facility] [id number] [place] [address] 62518- 1286 Sep, Lumbar back pain M54.5 [facility] [id number] [place] [address] 30296- 8186 Sep, [facility] [id number] [place] [address] 29073- 2399 Sep, Pulmonary nodules/lesions, multiple R91.8 [facility] [id number] [place] [address] 62121- 7662 Aug, [facility] [id number] [place] [address] 72072- 7357 Aug, Lumbar back pain M54.5 [facility] [id number] [place] [address] 79965- 0396 Jul, [facility] [id number] [place] [address] 92407- 1243 Jul, [facility] [id number] [place] [address] 85623- 9702 Jul, Lumbar back pain M54.5 [facility] [id number] [place] [address] 45824- 2403 Jul, Pulmonary nodules/lesions, multiple R91.8 [facility] [id number] [place] [address] 70950- 3846 Jun, Pulmonary nodules/lesions, multiple R91.8 [facility] [id number] [place] [address] 38308- 4677 Jun, [facility] [id number] [place] [address] 62436- 1298 December, [facility] [address] [place] [address] 41291- 6495 Jan, Migraine without status migrainosus, not intractable, unspecified migraine type G43.909 [facility] [id number] [place] [address] 15087- 5491 December, [facility] [id number] [place] [address] 26493- 9550 December, Right groin pain R10.30 and Generalized headaches R51 [facility] [id number] [place] [address] 45716- 2020 Nov, [facility] [address] 24173- 4117 Nov, [facility] [id number] [place] [address] 88966- 9857 Aug, Right hand fracture, closed, initial encounter S62.91XA ; Cough R05 and High blood pressure (not hypertension) R03.0 [facility] [id number] [place] [address] 55987- 5124 Apr, [facility] [id number] [place] [address] 48842- 5459 Mar, [facility] [id number] [place] [address] 42064- 9492 Feb, Tinea corporis 110.5 [facility] [id number] [place] [address] 09172- 3948 Nov, [facility] [id number] [place] [address] 46008- 1606 Nov, [facility] [id number] [place] [address] 21429- 8063 Apr, [facility] [id number] [place] [address] 79727- 6245 Apr, [facility] [id number] [place] [address] 01901- 7566 Jan, [facility] [address] [facility] [id number] [place] [address]- 0760 December, IMMUNIZATIONS No Known Immunizations SOCIAL HISTORY Never Assessed REASON FOR VISIT PT Evaluation PLAN OF CARE VITAL SIGNS MEDICATIONS Unknown Medications RESULTS No Results PROCEDURES Procedure Date Ordered Result Body Site PT EVAL LOW COMPLEX 20 MIN Aug 28, 2017 INSTRUCTIONS MEDICATIONS ADMINISTERED No Known Medications MEDICAL (GENERAL) HISTORY Type Description Date Medical History Hypertension Medical History Anxiety/Sleep Issues Medical History Tumer on Lung 06/2017 Surgical History pins in left foot
--- OUTSIDE RECORDS SUMMARY | 2018-03-04 11:09 | XMS REPORT ---
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 Active [id number] ALLERGIES No Information ENCOUNTERS Encounter Location Date Diagnosis [place] [address] [address] Jan, [place] [address] 33468- 0461 Nov, Lumbar radiculopathy M54.16 [place] [address] [place] [id number] [place] [address] 70644- 8164 Oct, [place] [address] [place] [id number] [place] [address] 89497- 3699 Oct, Pulmonary nodules R91.8 ; Lumbar radiculopathy M54.16 ; Generalized idiopathic epilepsy and epileptic syndromes, without status epilepticus, 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 and Schizophrenia, unspecified type F20.9 [place] [address] [place] [id number] [place] [address] 30222- 7423 Sep, Lumbar back pain M54.5 [place] [address] [place] [id number] [place] [address] 55701- 1124 Sep, [place] [address] [place] [id number] [place] [address] 24624- 8536 Sep, Pulmonary nodules/lesions, multiple R91.8 [facility] [address] [place] [id number] [place] [address] 80664- 1723 Aug, [facility] [address] [place] [id number] [place] [address] 85094- 8245 Aug, Lumbar back pain M54.5 [facility] [address] [id number] [place] [address] 66445- 7760 Jul, [facility] [address] [place] [id number] [place] [address] 79417- 9923 Jul, [facility] [address] [id number] [place] [address] 97765- 6106 Jul, Lumbar back pain M54.5 [facility] [address] [place] [id number] [place] [address] 53408- 0059 Jul, Pulmonary nodules/lesions, multiple R91.8 [facility] [address] [id number] [place] [address] 12322- 4505 Jun, Pulmonary nodules/lesions, multiple R91.8 [facility] [address] [place] [id number] [place] [address] 11582- 9142 Jun, [facility] [address] [place] [id number] [place] [address] 74978- 7167 December, [facility] [address] [place] [id number] [place] [address] 45763- 0473 Jan, Migraine without status migrainosus, not intractable, unspecified migraine type G43.909 [facility] [address] [place] [id number] [place] [address] 70916- 4316 December, [facility] [address] [place] [id number] [place] [address] 61012- 3167 December, Right groin pain R10.30 and Generalized headaches R51 [facility] [address] [id number] [place] [address] 93704- 1533 Nov, [facility] [address] [address] Nov, [facility] [address] [place] [id number] [place] [address] 760693- 9322 Aug, Right hand fracture, closed, initial encounter S62.91XA ; Cough R05 and High blood pressure (not hypertension) R03.0 [facility] [address] [place] [id number] [place] [address] 66815- 0757 Apr, [facility] [address] [id number] [place] [address] 80964- 4017 Mar, [facility] [address] [place] [id number] [place] [address] 62545- 1764 Feb, Tinea corporis 110.5 [facility] [address] [place] [id number] [place] [address] 56184- 9340 Nov, [facility] [address] [place] [id number] [place] [address] 26887- 6068 Nov, [facility] [id number] [place] [address] 99771- 7959 Apr, [facility] [address] [place] [id number] [place] [address] 41941- 9303 Apr, [facility] [address], [place] [address] Jan, [facility] [address] [place] [id number] [place] [address] 618047- 9438 December, IMMUNIZATIONS No Known Immunizations SOCIAL HISTORY [...]
--- OUTSIDE RECORDS SUMMARY | 2018-03-04 11:10 | XMS REPORT ---
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 Active 15100078 ALLERGIES No Information ENCOUNTERS Encounter Location Date Diagnosis [place] [address] [place] [id number] [place] [address] 47123- 7240 Jan, [place] [address] [place] [id number] [place] [address] 01276- 4551 Jan, Lumbar radiculopathy M54.16 [place] [address] [place] [id number] [place] [address] 92628- 1093 Nov, Lumbar radiculopathy M54.16 [place] [address] [place] [id number] [place] [address] 74756- 4940 Oct, [facility] [address] [place] [id number] [place] [address] 33131- 5752 Oct, Pulmonary nodules R91.8 ; Lumbar radiculopathy M54.16 ; Generalized idiopathic epilepsy and epileptic syndromes, without status epilepticus, 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 and Schizophrenia, unspecified type F20.9 [facility] [address] [place] [id number] [place] [address] 80664- 1690 Sep, Lumbar back pain M54.5 [place] [address] [place] [id number] [place] [address] 89155- 8044 Sep, [facility] [address], [place] [address] 49[address] Sep, Pulmonary nodules/lesions, multiple R91.8 [facility] [address] [address] 62[address] Aug, [facility] [address] [place] [id number] [place] [address] 87416- 5612 Aug, Lumbar back pain M54.5 [facility] [address] [place] [address] 04874- 1329 Jul, [facility] [address] [place] [id number] [place] [address] 82330- 3596 Jul, [facility] [address] [place] [address] 13366- 8636 Jul, Lumbar back pain M54.5 [facility] [address] [place] [address] 51654- 4091 Jul, Pulmonary nodules/lesions, multiple R91.8 [facility] [address] [place] [address] 48079- 4618 Jun, Pulmonary nodules/lesions, multiple R91.8 [facility] [address] [place] [address] 56117- 1453 Jun, [facility] [address] [place] [address] 39103- 0019 December, [facility] [address] [place] [address] 30258- 2995 Jan, Migraine without status migrainosus, not intractable, unspecified migraine type G43.909 [facility] [address], [place] [address]- 1225 December, [facility] [address] [address]- 2119 December, Right groin pain R10.30 and Generalized headaches R51 [facility] [address] [place] [id number] [place] [address] 19822- 1384 Nov, [facility] [address] [place] [id number] [place] [address] 70951- 6854 Nov, [facility] [address] [place] [id number] [place] [address] 26800- 7658 Aug, Right hand fracture, closed, initial encounter S62.91XA ; Cough R05 and High blood pressure (not hypertension) R03.0 [facility] [address] [place] [id number] [place] [address] 44346- 7754 Apr, [place] [address] 54478- 5044 Mar, [place] [address] 21091- 6696 Feb, Tinea corporis 110.5 [place] [address] [place] [id number] [place] [address] 71642- 6004 Nov, [facility] [address] [place] [id number] [place] [address] 02370- 4848 Nov, [facility] [address] [place] [id number] [place] [address] 19997- 4809 Apr, [place] [address] [place] [id number] [place] [address] 56676- 1595 Apr, [facility] [address] [place] [id number] [place] [address] 69859- 0489 Jan, [facility] [address] [place] [id number] [place] [address] 10575- 8723 December, IMMUNIZATIONS No Known Immunizations SOCIAL HISTORY Never Assessed REASON FOR VISIT LVM-- Unable to make contact PLAN OF CARE VITAL SIGNS MEDICATIONS Unknown Medications RESULTS No Results PROCEDURES No Known procedures INSTRUCTIONS MEDICATIONS ADMINISTERED No Known Medications MEDICAL (GENERAL) HISTORY Type Description Date Medical History Hypertension Medical History Anxiety/Sleep Issues Medical History Tumer on Lung 06/2017 Surgical History pins in left foot
--- OUTSIDE RECORDS SUMMARY | 2018-03-04 11:10 | XMS REPORT ---
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 Active 78708292 ALLERGIES No Information ENCOUNTERS Encounter Location Date Diagnosis [place] [address] [place] [id number] [place] [address] 44873- 7837 Jan, [place] [address] [place] [id number] [place] [address] 37741- 9949 Jan, Lumbar radiculopathy M54.16 [place] [address] [place] [id number] [place] [address] 96594- 0029 Nov, Lumbar radiculopathy M54.16 [place] [address] [place] [address] 77893- 2185 Oct, [facility] [address] [place] [id number] [place] [address] 00063- 0772 Oct, Pulmonary nodules R91.8 ; Lumbar radiculopathy M54.16 ; Generalized idiopathic epilepsy and epileptic syndromes, without status epilepticus, 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 and Schizophrenia, unspecified type F20.9 [facility] [address] [address]- 7640 Sep, Lumbar back pain M54.5 [facility] [address] [address]- 9848 Sep, [facility] [address] [place] [address] 42634- 7882 Sep, Pulmonary nodules/lesions, multiple R91.8 [facility] [address] [address]- 0193 Aug, [facility] [address] [place] [id number] [place] [address] 21886- 8177 Aug, Lumbar back pain M54.5 [facility] [address] [place] [address] 16504- 4667 Jul, [facility] [address] [place] [id number] [place] [address] 62147- 7422 Jul, [facility] [address] [place] [address] 73839- 6235 Jul, Lumbar back pain M54.5 [facility] [address] [place] [address] 03681- 9820 Jul, Pulmonary nodules/lesions, multiple R91.8 [facility] [address] [place] [address] 18586- 6833 Jun, Pulmonary nodules/lesions, multiple R91.8 [facility] [address] [address]- 5021 Jun, [facility] [address] [address]- 4342 December, [facility] [address] [address]- 4910 Jan, Migraine without status migrainosus, not intractable, unspecified migraine type G43.909 [facility] [address], [place] [address]- 9263 December, [facility] [address] [place] [id number] [place] [address] 35885- 9791 December, Right groin pain R10.30 and Generalized headaches R51 [facility] [address] [place] [id number] [place] [address] 89262- 4553 Nov, [facility] [address] [place] [id number] [place] [address] 69427- 4200 Nov, [facility] [address] [place] [id number] [place] [address] 18241- 4591 Aug, Right hand fracture, closed, initial encounter S62.91XA ; Cough R05 and High blood pressure (not hypertension) R03.0 [facility] [address] [place] [id number] [place] [address] 98962- 8606 Apr, [place] [address] 08602- 8325 Mar, [place] [address] 08336- 3087 Feb, Tinea corporis 110.5 [place] [address] [place] [id number] [place] [address] 76422- 2500 Nov, [facility] [address] 74683- 2938 Nov, [facility] [address] [place] [id number] [place] [address] 95600- 1401 Apr, [facility] [address] [place] [id number] [place] [address] 31777- 6162 Apr, [facility] [address] [place] [id number] [place] [address] 17637- 3191 Jan, [facility] [address] [place] [id number] [place] [address] 47036- 5547 December, IMMUNIZATIONS No Known Immunizations SOCIAL HISTORY [...]
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
[2018-03-04] MEDS ORDERED: NS IV 1000 ML 1,000 ML ONE (11:21)
[2018-03-04] MEDS ORDERED: LIDOCAINE 1% INJ 20 ML 20 ML VIAL ONE (11:21)
[2018-03-04] MEDS ORDERED: HEParin (CATH LAB) 2,000 ML IV ONE (11:21)
[2018-03-04] MEDS ORDERED: NS IV 1000 ML 1,000 ML IV SCH ×2 (11:26→11:30)
[2018-03-04 11:56] LABS: HEMOGLOBIN 14.9 G/DL (13.3-17.7); MEAN PLATELET VOLUME 9.8 FL (7.4-10.4); RED BLOOD COUNT 5.06 10^6/uL (4.35-5.85); RED CELL DISTRIBUTION WIDTH 14.2 % (10.0-14.5); WHITE BLOOD COUNT 5.4 10^3/uL (4.3-11.0)
[2018-03-04 12:08] LABS: INR 0.9 (0.8-1.4); PROTHROMBIN TIME PATIENT 12.3 SEC (12.2-14.7)
[2018-03-04 12:15] LABS: ALANINE AMINOTRANSFERASE 24 U/L (0-55); ALKALINE PHOSPHATASE 60 U/L (40-136); BILIRUBIN,TOTAL 0.6 MG/DL (0.1-1.0); BUN/CREATININE RATIO 9; CALCIUM 9.5 MG/DL (8.5-10.1); CARBON DIOXIDE 30 MMOL/L (21-32); CHLORIDE 110 MMOL/L (98-107); CHOLESTEROL 241 MG/DL (< 200); CREATININE SERUM 1.23 MG/DL (0.60-1.30); GFR ESTIMATED > 60; GLUCOSE 103 MG/DL (70-105); HDL CHOLESTEROL 36 MG/DL (40-60); SODIUM 144 MMOL/L (135-145); TOTAL PROTEIN 6.9 GM/DL (6.4-8.2); TRIGLYCERIDES 197 MG/DL (<150); VLDL CHOLESTEROL 39 MG/DL (5-40)
[2018-03-04] MEDS ORDERED: ASPI-983 PO (12:19)
[2018-03-04] MEDS ORDERED: IBUP-850 PO (12:19)
[2018-03-04] MEDS ORDERED: AMIT25TA9 PO (12:19)
[2018-03-04] MEDS ORDERED: CYCL10TA9 PO (12:19)
[2018-03-04] MEDS ORDERED: fentaNYL INJECTION 100 MCG/2 ML AMP ONE (14:19)
[2018-03-04] MEDS ORDERED: MIDAZOLAM 5 MG/5 ML (VERSED) VIAL ONE (14:19)
[2018-03-04] MEDS ORDERED: diphenhydrAMINE 50 MG/ML INJ (BENADRYL) ONE (14:19)
[2018-03-04] MEDS ORDERED: HEParin 1000 UNIT/ML (10ML VIAL) FOR BOLUS ONE (14:52)
[2018-03-04] MEDS ORDERED: NITRO DRIP 25000 MCG/D5W 250 ML IV ONE (14:53)
[2018-03-04] MEDS ORDERED: CLOPIDOGREL 300 MG (PLAVIX) TABLET PO ONE (15:22)
[2018-03-04] MEDS ORDERED: ASPIRIN 81 MG CHEW (CHILDREN'S ASA) ONE (15:22)
--- NOTE | 2018-03-04 15:52 | Cardiac Procedure Note-CS/ASA ---
Pre-Procedure Note Pre-Op Procedure Note H&P Reviewed The H&P was reviewed, patient examined and no changes noted. Date H&P Reviewed: Mar 04, 2018 Time H&P Reviewed: 14:50 Conscious Sedation Pre-Proced Time Reviewed: 14:50 ASA Class: 3 Airway Mallampati Classification: (kalispel appropriate class) I. II. III, IV Lungs Heart ASA score ASA 1: a normal healthy patient ASA 2: a patient with a mild systemic disease (mid diabetes, controlled hypertension, obesity ASA 3: a patient with a severe systemic disease that limits activity (angina , COPD, prior Myocardial infarction) ASA 4: a patient with an incapacitating disease that is a constant threat to life (CHF, renal failure) ASA 5: a moribund patient not expected to survive 24 hrs. (ruptured aneurysm) ASA 6: a declared brain patient whose organs are being harvested. For emergent operations, add the letter E after the classification Grade 2 Sedation Plan: Analgesia, Amnesia, Plan communicated to team members, Discussed options with patient/fam, Discussed risks with patient/fam Note The patient is an appropriate candidate to undergo the planned procedure, sedation, and anesthesia. The patient immediately re-assessed prior to indication. ZULEYMA LOMAS MD FACP FAC CCDS Mar 04, 2018 15:52
[2018-03-04] MEDS ORDERED: PATIENT MAY USE OWN MEDS, ALL PO SCH (16:00)
[2018-03-04] MEDS ORDERED: ACETAMINOPHEN 500 MG TAB (TYLENOL) PO PRN (16:00)
[2018-03-04] MEDS ORDERED: IBUPROFEN 800 MG (MOTRIN) TAB PO PRN (16:00)
[2018-03-04] MEDS: NS IV 1000 ML 1,000 ML IV SCH (17:09)
--- NOTE | 2018-03-04 18:28 | CARDIAC CATHETERIZATION ---
DATE OF SERVICE: 03/04/2018 CARDIAC CATHETERIZATION AND CORONARY INTERVENTION REPORT The patient is a 47-year-old man who has been having symptoms of unstable angina for the last one to two weeks. Cardiac catheterization was carried out after having obtained informed consent for cardiac catheterization, possible ad hoc coronary intervention. Informed consent was obtained. PROCEDURE: He was brought to the cardiac catheterization laboratory in a fasting state. Right groin was prepared and draped in usual sterile fashion. Lidocaine 1% with local anesthesia. Modified Seldinger technique was used to advance a 5-[place] sheath into the right femoral artery. A 5-Central [place] JL4 catheter for left coronary angiography, 5-Central African JR4 catheter for right coronary angiography. A 5-[place] pigtail catheter was used for left heart catheterization and left ventricular angiography. PERCUTANEOUS INTERVENTION OF THE RIGHT CORONARY ARTERY: Following completion of the diagnostic procedure, we carried out percutaneous intervention of the right coronary artery, which was exhibiting 70% mid to distal stenosis and the segments of artery prior to and after the stenosis were somewhat dilated and there appeared to be unstable plaque on each side. We exchanged the sheath over a wire for a 6-Central African sheath. We advanced a 6-Central African JR4 guide catheter. We advanced a BMW wire across the lesions and the tip was placed in the distal vessel. We advanced Alpine Xience 4.0 x 18 mm stent to the 70% stenosis and this also covers the unstable plaque distal to the stenosis. The stent was deployed at 20 atmospheres. Subsequent angiography revealed 0% residual stenosis and also shows that the unstable plaque has been tacked. We then stented the more proximal unstable plaque with Alpine Xience 4.0 x 23 mm stent, which was also deployed at 20 atmospheres. These two stents are very close to each other, but does not overlap. Flow throughout the vessel following these interventions is normal. The patient tolerated the procedure well. Angiography of the right femoral artery was carried through the sheath and Mynx was used to achieve hemostasis. HEMODYNAMICS: Left ventricular end-diastolic pressure following coronary angiography was 7 mmHg. There is no significant pressure gradient pullback across the aortic valve. Ascending aortic pressure was 149/98 with a mean of 121 mmHg. LEFT VENTRICULAR ANGIOGRAPHY: Left ventricular angiography was carried out in the right anterior oblique projection. Global left ventricular systolic function is normal. Left ventricular ejection fraction is approximately 65%. There does not appear to be significant mitral regurgitation. CORONARY ANGIOGRAPHY: Left main coronary artery, left anterior descending artery, and left circumflex artery do not exhibit angiographically significant obstructive disease. Right coronary artery is large and dominant and had 70% mid to distal stenosis with unstable plaque proximal to and distal to this stenosis. These lesions were stented using Alpine Xience 4.0 x 23 mm and 4.0 x 18 mm stents, as detailed above. Following stent deployment, the unstable plaques are tacked and there is no significant residual stenosis. CONCLUSIONS: 1. Coronary artery disease, primarily single vessel, primarily consisting of 70% mid to distal stenosis of the right coronary artery associated with unstable plaque. These lesions were treated with Alpine Xience 4.0 x 23 mm and Alpine Xience 4.0 x 18 mm stent, both of which were deployed at 20 atmospheres. 2. Normal global left ventricular systolic function with ejection fraction of approximately 65%. 3. No significant regional wall motion abnormality. 4. Normal left ventricular end-diastolic pressure. DISCUSSION AND RECOMMENDATIONS: Aspirin and Plavix have been added to the regimen. Risk factor modification has been reviewed. He is being hospitalized for observation after today's interventional procedure. Job ID: [id number] DocumentID: [id number] Dictated Date: 03/04/2018 15:36:17 Laboratory Scientist Date: 03/04/2018 18:27:44 Dictated By: ZULEYMA LOMAS MD, MA, FACP, FACC,
[2018-03-04] MEDS ORDERED: CYCLOBENZAPRINE 10 MG (FLEXERIL) TAB PO SCH (21:00)
[2018-03-04] MEDS ORDERED: LOXAPINE SUCCINATE 25 MG PO SCH (21:00)
[2018-03-04] MEDS ORDERED: AMITRIPTYLINE 25 MG (ELAVIL) TAB PO SCH (21:00)
[2018-03-04] MEDS ORDERED: ATORVASTATIN 80 MG (LIPITOR) TABLET PO SCH (21:00)
[2018-03-05] VITALS: BP 133/84
[2018-03-05] MEDS: NS IV 1000 ML 1,000 ML IV SCH (01:53)
[2018-03-05 04:00] VITALS: BP 132/87
[2018-03-05 05:42] LABS: HEMOGLOBIN 14.8 G/DL (13.3-17.7); MEAN PLATELET VOLUME 9.8 FL (7.4-10.4); RED BLOOD COUNT 4.94 10^6/uL (4.35-5.85); RED CELL DISTRIBUTION WIDTH 14.1 % (10.0-14.5); WHITE BLOOD COUNT 5.8 10^3/uL (4.3-11.0)
[2018-03-05 06:04] LABS: BUN/CREATININE RATIO 9; CALCIUM 9.2 MG/DL (8.5-10.1); CARBON DIOXIDE 27 MMOL/L (21-32); CHLORIDE 106 MMOL/L (98-107); CREATININE SERUM 1.23 MG/DL (0.60-1.30); GFR ESTIMATED > 60; GLUCOSE 98 MG/DL (70-105); POTASSIUM 3.8 MMOL/L (3.6-5.0); SODIUM 141 MMOL/L (135-145)
[2018-03-05 08:00] VITALS: BP 135/72
--- NOTE | 2018-03-05 08:13 | Progress Note-Cardiology ---
Cardiology SOAP Progress Note Subjective: In bed. No c/o CP, dyspnea, palpitations, syncope or near syncope. C/O mod right groin tenderness with gentle palpation. Objective: I&O/Vital Signs 03/05/18 03/05/18 03/05/18 03/05/18 04:00 07:00 08:00 08:09 Temp 97.8 96.7 Pulse 51 56 66 Resp 19 16 B/P (MAP) 132/87 (102) 135/72 (93) Pulse Ox 100 100 98 O2 Delivery Room Air Room Air Room Air 03/05/18 00:00 Intake Total 1200 ml Balance 1200 ml Weight (Pounds): 254 Weight (Ounces): 0.0 Weight (Calculated Kilograms): [id number] Side: right Groin site without hematoma: Yes Condition: DP/PT pulses palpable Bruising: mild bruising Constitutional: AAO x 3, well-developed, well-nourished Respiratory: No accessory muscle use, No respiratory distress; chest expansion is symmetric, chest is bilaterally symmetric, lungs clear to auscultation Cardiovascular: regular rate-rhythm; No JVD; S1 and S2 Gastrointestional: No tender; soft, round, audible bowel sounds Extremities: no lower extremity edema bilateral Neurologic/Psychiatric: grossly intact Skin: No rash, No ulcerations Results/Procedures: Labs Laboratory Tests 03/05/18 05:08: White Blood Count 5.8, Red Blood Count 4.94, Hemoglobin 14.8, Hematocrit 43, Mean Corpuscular Volume 87, Mean Corpuscular Hemoglobin 30, Mean Corpuscular Hemoglobin Concent 34, Red Cell Distribution Width 14.1, Platelet Count 261, Mean Platelet Volume 9.8, Sodium Level 141, Potassium Level 3.8, Chloride Level 106, Carbon Dioxide Level 27, Anion Gap 8, Blood Urea Nitrogen 11, Creatinine 1.23, Estimat Glomerular Filtration Rate > 60, BUN/Creatinine Ratio 9, Glucose Level 98, Calcium Level 9.2 Laboratory Tests 03/04/18 11:43 03/05/18 05:08 Procedures Post cardiac cath with successful intervention. Please refer to Dr. Marie's cardiac cath report of March 04 for details A/P: Assessment: Coronary artery disease. Card cath of 03/04/18: 70% mid to distal stenosis of the right coronary artery associated with unstable plaque. These lesions were treated with Alpine Xience 4.0 x 23 mm and Alpine Xience 4.0 x 18 mm stent, both of which were deployed at 20 atmospheres. Normal global left ventricular systolic function with ejection fraction of approximately 65%. No significant regional wall motion abnormality. Normal left ventricular end-diastolic pressure Hypertension HLD H/o depression, controlled Plan: Cardiac status discussed with him Questions answered Continue current medication regimen Advised compliance with medications and f/u OK to discharge home today Out pt f/u in 4 weeks Physician Assessment Physician Assessment No cp or palp or syncope or significant groin discomfort or shortness of breath at rest or leg swelling/discomfort. Wishes to go home Lungs: clear Cor: reg Ext: no c/c/e. Mild bruising in the R groin A&R * As documented in our note above that I updated in italics and as noted below * I reviewed his cath findings and interventions undertaken with him and his family * Risk factor mod reviewed * Advised to completely avoid tobacco use and to be compliant with med' * Rationale and importance of DAPT and stains reviewed and compliance advised * He understands all of the above and states he will comply and f/u as an outpt SHWETA RICHARDS Mar 05, 2018 08:13 ZULEYMA MARIE MD FACP FAC CCDS Mar 05, 2018 14:49
[2018-03-05] MEDS ORDERED: PARoxetine 20 MG (PAXIL) TAB PO SCH (09:00)
[2018-03-05] MEDS ORDERED: CLOPIDOGREL 75 MG (PLAVIX) TABLET PO SCH (09:00)
[2018-03-05] MEDS ORDERED: ASPIRIN 81 MG CHEW (CHILDREN'S ASA) PO SCH (09:00)
[2018-03-05] MEDS ORDERED: ASPI-999 PO (09:27)
[2018-03-05] MEDS ORDERED: ATOR80TA76 PO (09:27)
[2018-03-05] MEDS ORDERED: CLOP75TA28 PO (09:27)
--- NOTE | 2018-03-05 09:29 | Discharge Inst-Cardiology ---
Discharge Inst-Cardiac Discharge Medications New Medications: Aspirin (Aspirin) 81 Mg Tab.chew 81 MG PO DAILY, #120 TAB 5 Refills Atorvastatin Calcium (Atorvastatin Calcium) 80 Mg Tablet 80 MG PO HS, #30 TAB 5 Refills Clopidogrel Bisulfate (Clopidogrel) 75 Mg Tablet 75 MG PO DAILY, #30 TAB 5 Refills Continued Medications: Amitriptyline HCl (Amitriptyline HCl) 25 Mg Tablet 50-75 MG PO HS, TAB Cyclobenzaprine HCl (Cyclobenzaprine HCl) 10 Mg Tablet 10 MG PO HS, TAB Loxapine Succinate (Loxapine) 25 Mg Capsule 25 MG PO HS, CAP Metoprolol Succinate (Metoprolol Succinate) 25 Mg Tab.er.24h 25 MG PO DAILY, TAB Paroxetine HCl (Paroxetine HCl) 20 Mg Tablet 20 MG PO DAILY, TAB Discontinued Medications: Aspirin (Aspirin EC) 81 Mg Tablet.dr 81 MG PO DAILY, TAB Ibuprofen (Ibu) 800 Mg Tablet 800 MG PO TID, TAB New, Converted or Re-Newed RX: Transmitted to Pharmacy Patient Instructions Patient Instructions: Please schedule follow up appointment to see Dr. Marie in 4 weeks SHWETA RICHARDS Mar 05, 2018 09:29
== END 2018-03-05 10:34 | disposition home or self-care (01) ==
LOC: CATH 11:03 → ICU 16:00 → CATH 03-05 10:34
PROVIDERS: ATTEND Internal Medicine Cardiovascular Disease
DX: I25.10 Atherosclerotic heart disease of native coronary artery without angina pectoris (principal); I10 Essential (primary) hypertension; F32.9 Major depressive disorder, single episode, unspecified; Z87.891 Personal history of nicotine dependence; Z11.2 Encounter for screening for other bacterial diseases
CPT/HCPCS: 36415; 80048; 80053; 80061; 85027; 85610; 85730; 87081; 93005; 93458

== ENCOUNTER 2018-04-27 18:29 | Emergency (ER) | payer MEDICARE, MEDICAID ==
[~2018-04-27] VITALS: Ht 175.3 cm; Wt 108.9 kg
[~2018-04-27 18:29] MED LIST changes: +ASPI-983 PO; +ASPI-999 PO; +ATOR80TA76 PO; +CLOP75TA28 PO; +HYDR-4226 PO; -HYDR-757 PO; +IBUP-850 PO
[2018-04-27 18:52] LABS: BASOPHILS % (AUTO) 0 % (0-10); EOSINOPHILS # (AUTO) 0.2 10^3/uL (0.0-0.3); EOSINOPHILS % (AUTO) 2 % (0-10); HEMATOCRIT 42 % (40-54); HEMOGLOBIN 14.5 G/DL (13.3-17.7); LYMPHOCYTES # (AUTO) 4.3 X 10^3 (1.0-4.0); LYMPHOCYTES % (AUTO) 49 % (12-44); MEAN CORPUSCULAR HEMOGLOBIN 29 PG (25-34); MEAN CORPUSCULAR HGB CONC 34 G/DL (32-36); MEAN CORPUSCULAR VOLUME 85 FL (80-99); MEAN PLATELET VOLUME 9.6 FL (7.4-10.4); MONOCYTES # (AUTO) 0.4 X 10^3 (0.0-1.0); MONOCYTES % (AUTO) 5 % (0-12); NEUTROPHILS # (AUTO) 3.9 X 10^3 (1.8-7.8); NEUTROPHILS % (AUTO) 45 % (42-75); PLATELET COUNT 309 10^3/uL (130-400); RED BLOOD COUNT 4.96 10^6/uL (4.35-5.85); RED CELL DISTRIBUTION WIDTH 13.4 % (10.0-14.5); WHITE BLOOD COUNT 8.8 10^3/uL (4.3-11.0)
--- NOTE | 2018-04-27 19:13 | ED General ---
General Chief Complaint: Abdominal/GI Problems Stated Complaint: ETOH Nursing Triage Note: Patient presents to ER via [facility] with complaint of vomiting this afternoon and possible syncope episode. Patient is awake, able to answer most questions appropriately. Patient falls asleep easily. Patient states he has been drinking liquor today but will not state how much he drank. Patient denies any pain. Nursing Sepsis Screen: No Definite Risk Source of Information: Family Exam Limitations: No Limitations History of Present Illness Date Seen by Provider: Apr 27, 2018 Time Seen by Provider: 19:05 Initial Comments The patient is a 47-year-old black male who was brought to the emergency room by ambulance. Complained of vomiting and malaise. Apparently began this afternoon he admitted to drinking alcohol but could not quantitate. He was obviously somnolent. At about 1910 he vomited in his room. At approximately 2100 his family arrived. They were able to give some additional history. A son apparently found him in the bathroom at home on his hands and knees vomiting into the toilet. He awakens and speaks at intervals. He states that he has no abdominal pain. His blood alcohol was reported at 136 which does not seem to have any relationship to his mental state or his vomiting. Allergies and Home Medications Allergies Coded Allergies: No Known Drug Allergies (Unverified , 12/15/12) Home Medications Amitriptyline HCl 25 Mg Tablet, 50-75 MG PO HS, (Reported) Aspirin 81 Mg Tab.chew, 81 MG PO DAILY Prescribed by: SHWETA RICHARDS on 03/05/18926 Atorvastatin Calcium 80 Mg Tablet, 80 MG PO HS Prescribed by: SHWETA RICHARDS on 03/05/18926 Clopidogrel Bisulfate 75 Mg Tablet, 75 MG PO DAILY Prescribed by: SHWETA RICHARDS on 03/05/18926 Cyclobenzaprine HCl 10 Mg Tablet, 10 MG PO HS, (Reported) Loxapine Succinate 25 Mg Capsule, 25 MG PO HS, (Reported) Metoprolol Succinate 25 Mg Tab.er.24h, 25 MG PO DAILY, (Reported) Paroxetine HCl 20 Mg Tablet, 20 MG PO DAILY, (Reported) Patient Home Medication List Home Medication List Reviewed: Yes Review of Systems Review of Systems Constitutional: see HPI, other Past Sohgnwc-Bslvqe-Pwlhzq Hx Patient Social History Alcohol Use: Regular Use Number of Drinks Today: AA Alcohol Beverage of Choice: Beer Recreational Drug Use: No Smoking Status: Current Everyday Smoker Type Used: Cigarettes Former Smoker, Quit: Mar 04, 2013 2nd Hand Smoke Exposure: No Recent Foreign Travel: No Contact w/Someone Who Travel: No Recent Infectious Disease Expo: No Recent Hopitalizations: No Physical Abuse: No Sexual Abuse: No Mistreated: No Fear: No Seasonal Allergies Seasonal Allergies: Yes Past Medical History Surgeries: No Respiratory: No Cardiac: Yes Hypertension Neurological: Yes Neuropathy, Seizure Disorder Reproductive Disorders: No Genitourinary: No Gastrointestinal: No Musculoskeletal: Yes Chronic Back Pain Endocrine: No HEENT: No Cancer: No Psychosocial: Yes Anxiety, Suicide Attempts, Schizophrenia, Depression Integumentary: No Blood Disorders: No Adverse Reaction/Blood Tranf: No Family Medical History No Pertinent Family Hx Physical Exam Vital Signs Vital Signs - First Documented 04/27/18 18:30 Temp 92.5 Pulse 61 Resp 14 B/P (MAP) 136/87 (103) O2 Delivery Room Air Capillary Refill : Less Than 3 Seconds Height, Weight, BMI Height: 5'9.00" Weight: 240lbs. 0.0oz. 108.937327pu; 37.5 BMI Method:Stated General Appearance: Other (somnolent) Eyes: Bilateral Eye Normal Inspection HEENT: Normal ENT Inspection Neck: Full Range of Motion Respiratory: Chest Non Tender, Lungs Clear, Normal Breath Sounds, No Accessory Muscle Use, No Respiratory Distress Cardiovascular: Regular Rate, Rhythm, No Edema, No Gallop, No JVD, No Murmur, Normal Peripheral Pulses Gastrointestinal: Normal Bowel Sounds, No Organomegaly, No Pulsatile Mass, Non Tender, Soft Back: Normal Inspection, No CVA Tenderness, No Vertebral Tenderness Extremity: Normal Capillary Refill, Normal Inspection, Normal Range of Motion, Non Tender, No Calf Tenderness, No Pedal Edema Skin: Normal Color, Warm/Dry Lymphatic: No Adenopathy Procedures/Interventions Suture Size: 5-0 Progress/Results/Core Measures Suspected Sepsis Recent Fever Within 48 Hours: No Infection Criteria Present: None New/Unexplained Altered Menta: No Sepsis Screen: No Definite Risk SIRS Temperature:92.5 Pulse: 61 Respiratory Rate: 14 Laboratory Tests 04/27/18 18:39: White Blood Count 8.8 Blood Pressure 136 /87 Mean: 103 Laboratory Tests 04/27/18 18:39: Creatinine 1.27, Platelet Count 309, Total Bilirubin 0.6 Results/Orders Lab Results Laboratory Tests Test 04/27/18 18:39 04/27/18 20:40 Range/Units White Blood Count 8.8 4.3-11.0 10^3/uL Red Blood Count 4.96 4.35-5.85 10^6/uL Hemoglobin 14.5 13.3-17.7 G/DL Hematocrit 42 40-54 % Mean Corpuscular Volume 85 80-99 FL Mean Corpuscular Hemoglobin 29 25-34 PG Mean Corpuscular Hemoglobin Concent 34 32-36 G/DL Red Cell Distribution Width 13.4 10.0-14.5 % Platelet Count 309 130-400 10^3/uL Mean Platelet Volume 9.6 7.4-10.4 FL Neutrophils (%) (Auto) 45 42-75 % Lymphocytes (%) (Auto) 49 H 12-44 % Monocytes (%) (Auto) 5 0-12 % Eosinophils (%) (Auto) 2 0-10 % Basophils (%) (Auto) 0 0-10 % Neutrophils # (Auto) 3.9 1.8-7.8 X 10^3 Lymphocytes # (Auto) 4.3 H 1.0-4.0 X 10^3 Monocytes # (Auto) 0.4 0.0-1.0 X 10^3 Eosinophils # (Auto) 0.2 0.0-0.3 10^3/uL Basophils # (Auto) 0.0 0.0-0.1 10^3/uL Sodium Level 143 135-145 MMOL/L Potassium Level 3.4 L 3.6-5.0 MMOL/L Chloride Level 108 H 98-107 MMOL/L Carbon Dioxide Level 21 21-32 MMOL/L Anion Gap 14 5-14 MMOL/L Blood Urea Nitrogen 10 7-18 MG/DL Creatinine 1.27 0.60-1.30 MG/DL Estimat Glomerular Filtration Rate > 60 BUN/Creatinine Ratio 8 Glucose Level 160 H 70-105 MG/DL Calcium Level 9.3 8.5-10.1 MG/DL Corrected Calcium 8.9 8.5-10.1 MG/DL Total Bilirubin 0.6 0.1-1.0 MG/DL Aspartate Amino Transf (AST/SGOT) 27 5-34 U/L Alanine Aminotransferase (ALT/SGPT) 27 0-55 U/L Alkaline Phosphatase 78 40-136 U/L Total Protein 7.5 6.4-8.2 GM/DL Albumin 4.5 3.2-4.5 GM/DL Acetaminophen Level < 10 L 10-30 UG/ML Serum Alcohol 139 H <10 MG/DL Urine Opiates Screen NEGATIVE NEGATIVE Urine Oxycodone Screen NEGATIVE NEGATIVE Urine Methadone Screen NEGATIVE NEGATIVE Urine Propoxyphene Screen NEGATIVE NEGATIVE Urine Barbiturates Screen NEGATIVE NEGATIVE Ur Tricyclic Antidepressants Screen NEGATIVE NEGATIVE Urine Phencyclidine Screen POSITIVE H NEGATIVE Urine Amphetamines Screen NEGATIVE NEGATIVE Urine Methamphetamines Screen NEGATIVE NEGATIVE Urine Benzodiazepines Screen NEGATIVE NEGATIVE Urine Cocaine Screen NEGATIVE NEGATIVE Urine Cannabinoids Screen POSITIVE H NEGATIVE My Orders Orders - LUCY HUGO MD Acetaminophen (04/27/18 18:35) Alcohol (04/27/18 18:35) Cbc With Automated Diff (04/27/18 18:35) Comprehensive Metabolic Panel (04/27/18 18:35) Drug Screen Stat (Urine) (04/27/18 18:35) Ns Iv 1000 Ml (Sodium Chloride 0.9%) (04/27/18 20:45) Ondansetron Injection (Zofran Injectio (04/27/18 20:45) Medications Given in ED Current Medications Medications Dose Ordered Sig/Yazmin Route Start Time Stop Time Status Last Admin Dose Admin Ondansetron HCl 8 mg ONCE ONCE IVP 04/27/18 20:45 04/27/18 20:54 DC 04/27/18 20:49 8 MG Vital Signs/I&O 04/27/18 18:30 Temp 92.5 Pulse 61 Resp 14 B/P (MAP) 136/87 (103) O2 Delivery Room Air Capillary Refill : Less Than 3 Seconds Blood Pressure Mean: 103 Departure Communication (Admissions) In addition to the blood alcohol of 136 the patient's urine drug screen was positive for cannabis and PCP the patient has become more alert and was able to ambulate and he will therefore be discharged. Impression Primary Impression: drug abuse Disposition: 01 HOME, SELF-CARE Condition: Stable/Unchanged Departure-Patient Inst. Decision time for Depature: 22:12 Referrals: GUERDA RO MD (PCP) Primary Care Physician [facility] (Family) Primary Care Physician Patient Instructions: No Instuctions Given Add. Discharge Instructions: All discharge instructions reviewed with patient and/or family. Voiced understanding. Plenty of liquids. No further use of drugs or alcohol LUCY HUGO MD Apr 27, 2018 19:13
[2018-04-27 19:23] LABS: ALANINE AMINOTRANSFERASE 27 U/L (0-55); ALBUMIN 4.5 GM/DL (3.2-4.5); ALKALINE PHOSPHATASE 78 U/L (40-136); BILIRUBIN,TOTAL 0.6 MG/DL (0.1-1.0); BUN/CREATININE RATIO 8; CALCIUM 9.3 MG/DL (8.5-10.1); CARBON DIOXIDE 21 MMOL/L (21-32); CHLORIDE 108 MMOL/L (98-107); CREATININE SERUM 1.27 MG/DL (0.60-1.30); GFR ESTIMATED > 60; GLUCOSE 160 MG/DL (70-105); POTASSIUM 3.4 MMOL/L (3.6-5.0); SODIUM 143 MMOL/L (135-145); TOTAL PROTEIN 7.5 GM/DL (6.4-8.2)
[2018-04-27 19:27] LABS: ACETAMINOPHEN < 10 UG/ML (10-30)
[2018-04-27] MEDS ORDERED: ONDANSETRON 4 MG/2 ML (SDV) Z0FRAN IVP ONE (20:45)
[2018-04-27] MEDS ORDERED: NS IV 1000 ML 1,000 ML IV SCH (20:45)
[2018-04-27 21:02] LABS: AMPHETAMINE SCREEN, URINE NEGATIVE (NEGATIVE); BARBITURATE SCREEN URINE NEGATIVE (NEGATIVE); BENZODIAZEPINES SCREEN URINE NEGATIVE (NEGATIVE); CANNABINOID SCREEN, URINE POSITIVE (NEGATIVE); COCAINE SCREEN URINE NEGATIVE (NEGATIVE); METHADONE STAT NEGATIVE (NEGATIVE); METHAMPHETAMINE SCREEN URINE S NEGATIVE (NEGATIVE); OPIATE SCREEN URINE NEGATIVE (NEGATIVE); OXYCODONE STAT NEGATIVE (NEGATIVE); PROPOXYPHENE STAT NEGATIVE (NEGATIVE); TRICYCLIC ANTIDEPRESSANTS SCRE NEGATIVE (NEGATIVE)
[2018-04-27 22:48] VITALS: BP 140/93
== END 2018-04-27 22:54 | disposition home or self-care (01) ==
LOC: EDUNIT# 18:29 → ER 18:30
DX: F19.10 Other psychoactive substance abuse, uncomplicated (principal); I10 Essential (primary) hypertension; G40.909 Epilepsy, unspecified, not intractable, without status epilepticus; F41.9 Anxiety disorder, unspecified; F32.9 Major depressive disorder, single episode, unspecified; F20.9 Schizophrenia, unspecified; Z91.5 Personal history of self-harm; Z87.891 Personal history of nicotine dependence; Z79.82 Long term (current) use of aspirin; Z79.02 Long term (current) use of antithrombotics/antiplatelets
CPT/HCPCS: 36415; 80053; 80306; 80320; 80329; 85025; 93005; 96361; 96374

== ENCOUNTER 2018-07-31 22:28 | Emergency (ER) | payer MEDICARE, MEDICAID ==
[~2018-07-31] VITALS: Ht 175.3 cm; Wt 122.5 kg
--- OUTSIDE RECORDS SUMMARY | 2018-07-31 22:33 | XMS REPORT ---
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 Active 65171178 Problem Lumbar radiculopathy M54.16 Active 014359215 Problem Pulmonary nodules R91.8 Active 443765379 Problem Schizophrenia, unspecified type F20.9 Active 59245663 ALLERGIES No Known Allergies ENCOUNTERS Encounter Location Date Diagnosis [place] [address] [address] May, Closed fracture of right wrist, initial encounter S62.101A [place] [address] [place] [id number] [place] [address] 91150- 4370 May, Lumbar radiculopathy M54.16 and Seasonal allergies J30.2 [place] [address] [place] [id number] [place] [address] 19590- 4302 Mar, Lumbar radiculopathy M54.16 and Coronary artery disease involving [place] coronary artery of [place] heart without angina pectoris I25.10 [place] [address] [place] [id number] [place] [address] 14052- 1999 Feb, Other chest pain R07.89 and Lumbar radiculopathy M54.16 [place] [address] [place] [id number] [place] [address] 63250- 5086 Jan, Radiculopathy of lumbar region M54.16 [facility] [address] [place] [id number] [place] [address] 41271- 9036 Jan, [facility] [address] [place] [id number] [place] [address] 97487- 4714 Jan, Radiculopathy of lumbar region M54.16 [facility] [address] [place] [id number] [place] [address] 35166- 9697 Jan, [facility] [address] [place] [id number] [place] [address] 13886- 5481 Jan, Lumbar radiculopathy M54.16 [facility] [address] [place] [id number] [place] [address] 24401- 4723 Nov, Lumbar radiculopathy M54.16 [facility] [address] [place] [id number] [place] [address] 30448- 1544 Oct, [facility] [address] [place] [id number] [place] [address] 28088- 0615 Oct, Pulmonary nodules R91.8 ; Lumbar radiculopathy M54.16 ; Generalized idiopathic epilepsy and epileptic syndromes, without status epilepticus, 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 and Schizophrenia, unspecified type F20.9 [facility] [id number] [place] [address] 46613- 1262 Sep, Lumbar back pain M54.5 [facility] [address] [place] [id number] [place] [address] 44582- 1213 Sep, [facility] [address] [place] [id number] [place] [address] 18044- 9465 Sep, Pulmonary nodules/lesions, multiple R91.8 [facility] [address] [place] [id number] [place] [address] 65943- 6387 Aug, [facility] [address] [place] [id number] [place] [address] 95779- 9473 Aug, Lumbar back pain M54.5 [facility] [address] [place] [address] 32960- 6792 Jul, [facility] [address] [place] [id number] [place] [address] 03540- 1170 Jul, [facility] [address] [place] [id number] [place] [address] 11749- 5496 Jul, Lumbar back pain M54.5 [facility] [address] 26797- 3212 Jul, Pulmonary nodules/lesions, multiple R91.8 [facility] [address] [place] [id number] [place] [address] 05824- 0097 Jun, Pulmonary nodules/lesions, multiple R91.8 [facility] [address] [place] [id number] [place] [address] 25454- 5012 Jun, [facility] [address] [place] [id number] [place] [address] 98678- 3201 December, [facility] [address] [place] [id number] [place] [address] 29373- 1229 Jan, Migraine without status migrainosus, not intractable, unspecified migraine type G43.909 [facility] [address] [place] [id number] [place] [address] 11415- 0711 December, [facility] [address] [place] [id number] [place] [address] 72022- 0508 December, Right groin pain R10.30 and Generalized headaches R51 [facility] [address] [place] [id number] [place] [address] 58653- 5562 Nov, [facility] [address] [place] [id number] [place] [address] 26630- 6588 Nov, [facility] [address] [place] [id number] [place] [address] 33111- 3475 Aug, Right hand fracture, closed, initial encounter S62.91XA ; Cough R05 and High blood pressure (not hypertension) R03.0 [place] [address] [place] [id number] [address] 10 Apr, 2015 [facility] [address] [place] [id number] [address]- 0946 Mar, [facility] [address] [place] [address]- 0808 Feb, Tinea corporis 110.5 [facility] [address] [place] [address]- 2921 Nov, [facility] [address] [address]- 0687 Nov, [facility] [address] [address]- 5128 Apr, [facility] [address] [address]- 8922 Apr, [facility] [address] [place] [address]- 1802 Jan, [facility] [address] [place] [id number], [place] [address]- 6359 December, IMMUNIZATIONS No Known Immunizations SOCIAL HISTORY Never Assessed REASON FOR VISIT hospital f/u 06/07/18 broke right wrist Kinjal Marie rhett gave same pain medications as he has - hydro but not helping like they do for his back Kinjal MARIE PLAN OF CARE Activity Details Follow Up Reg appt Reason: VITAL SIGNS Height 69 in 2018-06-10 Weight 249.1 lbs 2018-06-10 Temperature 97.6 degrees Fahrenheit 2018-06-10 Respiratory Rate 20 2018-06-10 BMI 36.78 kg/m2 2018-06-10 Blood pressure systolic 110 mmHg 2018-06-10 Blood pressure diastolic 68 mmHg 2018-06-10 MEDICATIONS Medication Instructions Dosage Frequency Start Date End Date Duration Status Amitriptyline HCl 25 MG Orally at bedtime 2-3 tablets Active Atorvastatin Calcium 80 MG Orally Once a day 1 tablet 24h Active Orphenadrine Citrate ER 100 MG Orally Once a day 1 tablet at bedtime 24h Active Percocet 7.5-325 MG Orally every 6 hrs 1 tablet as needed 6h May, May, 5 days Active Toprol XL 25 mg Orally Once a day 1 tablet 24h 90 Active Depakote 500 MG Orally Once a day 2 tablets 24h Active ASA 1 tab Active Loxapine Succinate 50 MG Orally Once a day 1 capsule 24h Active Clopidogrel Bisulfate 75 MG Orally Once a day 1 tablet 24h Active Zyprexa 20 MG Orally Once a day 1 tablet 24h Active Hydrocodone-Acetaminophen 5-325 MG Orally 2 times a day 1 tablet as needed 12h 12 May, 2018 28 days Active Paroxetine HCl 20 MG Orally Once a day 1 tablet in the morning 24h Active RESULTS No Results PROCEDURES Procedure Date Ordered Result Body Site [facility] VISIT ESTABLISHED PATIENT Jun 10, 2018 INSTRUCTIONS MEDICATIONS ADMINISTERED No Known Medications MEDICAL (GENERAL) HISTORY Type Description Date Medical History Hypertension Medical History Anxiety/Sleep Issues Medical History Tumer on Lung 06/2017 Medical History heart stent 03/2018 Medical History 06/07/18 rt wrist broken Surgical History pins in left foot Surgical History heart stent 03/2018 Hospitalization History [facility] ED- Back pain 11/19/2017 Hospitalization History [facility] heart stents 03/2018
--- OUTSIDE RECORDS SUMMARY | 2018-07-31 22:33 | XMS REPORT ---
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 Active 53735473 Problem Lumbar radiculopathy M54.16 Active 210231130 Problem Pulmonary nodules R91.8 Active 335468413 Problem Schizophrenia, unspecified type F20.9 Active 07037058 ALLERGIES No Known Allergies ENCOUNTERS Encounter Location Date Diagnosis [place] [address] [address] May, Lumbar radiculopathy M54.16 and Seasonal allergies J30.2 [place] [address] [place] [id number] [place] [address] 52630- 3507 Mar, Lumbar radiculopathy M54.16 and Coronary artery disease involving [place] coronary artery of [place] heart without angina pectoris I25.10 [place] [address] [place] [id number] [place] [address] 36327- 2831 Feb, Other chest pain R07.89 and Lumbar radiculopathy M54.16 [place] [address] 03651- 6845 Jan, Radiculopathy of lumbar region M54.16 [place] [address] [place] [id number] [place] [address] 33942- 9046 Jan, [place] [address] [place] [id number] [place] [address] 02826- 1178 18 Jan, 2018 Radiculopathy of lumbar region M54.16 [facility] [address] [place] [id number] [place] [address] 98838- 6062 Jan, [facility] [address] [place] [id number] [place] [address] 45684- 2374 Jan, Lumbar radiculopathy M54.16 [facility] [address] [place] [id number] [place] [address] 07805- 1559 Nov, Lumbar radiculopathy M54.16 [facility] [address] [place] [id number] [place] [address] 51393- 0812 Oct, [facility] [address] [place] [id number] [place] [address] 87013- 3346 Oct, Pulmonary nodules R91.8 ; Lumbar radiculopathy M54.16 ; Generalized idiopathic epilepsy and epileptic syndromes, without status epilepticus, 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 and Schizophrenia, unspecified type F20.9 [facility] [address] [place] [id number] [place] [address] 71777- 5939 Sep, Lumbar back pain M54.5 [facility] [address] [place] [id number] [place] [address] 82077- 1021 Sep, [facility] [address] [place] [id number] [place] [address] 57026- 0409 Sep, Pulmonary nodules/lesions, multiple R91.8 [facility] [address] [place] [id number] [place] [address] 37934- 3749 Aug, [facility] [address] 09118- 5616 Aug, Lumbar back pain M54.5 [facility] [address] [place] [id number] [place] [address] 37898- 8479 Jul, [facility] [address] 02892- 1707 Jul, [facility] [address] [place] [id number] [place] [address] 48699- 3420 Jul, Lumbar back pain M54.5 [facility] [address] [place] [id number] [place] [address] 96021- 1249 Jul, Pulmonary nodules/lesions, multiple R91.8 [facility] [address] [place] [id number] [place] [address] 03091- 0462 Jun, Pulmonary nodules/lesions, multiple R91.8 [facility] [address] [place] [id number] [place] [address] 62538- 0358 Jun, [facility] [address] [place] [id number] [place] [address] 44561- 5599 December, [facility] [address] [place] [id number] [place] [address] 69455- 9623 Jan, Migraine without status migrainosus, not intractable, unspecified migraine type G43.909 [facility] [address] [place] [id number] [place] [address] 63578- 0519 December, [facility] [address] [place] [id number] [place] [address] 64084- 1557 December, Right groin pain R10.30 and Generalized headaches R51 [facility] [address] [place] [id number] [place] [address] 23975- 4297 Nov, [facility] [address] [place] [id number] [place] [address] 35141- 2023 Nov, [facility] [address] [place] [id number] [place] [address] 39154- 9406 Aug, Right hand fracture, closed, initial encounter S62.91XA ; Cough R05 and High blood pressure (not hypertension) R03.0 [facility] [address] [place] [id number] [place] [address] 17608- 3199 10 Apr, 2015 [facility] [address] 48787- 9916 Mar, [facility] [address] [address]- 3445 Feb, Tinea corporis 110.5 [facility] [address] [address] [address]649 Nov, [facility] [address] 2836 Nov, [facility] [address] [place] [address] 42012- 9131 Apr, [place] [address] [place] [address] 28511- 5873 Apr, [facility] [address] [address]- 7921 Jan, [place] [address] [place] [address] 49629- 6265 December, IMMUNIZATIONS Vaccine Route Administration Date Status DEPO MEDROL 80 MG/ML IM Intramuscular May 30, 2018 Administered SOCIAL HISTORY Never Assessed REASON FOR VISIT Pain (acute) back Kinjal FRANCO, out of pain meds- Kinjal FRANCO , tonsils dont hurt but he can feel like they are inflammed or sitting on tongue- hard time swallowing [id number] Kinjal FRANCO PLAN OF CARE Activity Details Follow Up 3 Months Reason: VITAL SIGNS Height 69 in 2018-05-30 Weight 250.7 lbs 2018-05-30 Temperature 96.7 degrees Fahrenheit 2018-05-30 Heart Rate 72 bpm 2018-05-30 Respiratory Rate 20 2018-05-30 BMI 37.02 kg/m2 2018-05-30 Blood pressure systolic 112 mmHg 2018-05-30 Blood pressure diastolic 86 mmHg 2018-05-30 MEDICATIONS Medication Instructions Dosage Frequency Start Date End Date Duration Status Amitriptyline HCl 25 MG Orally at bedtime 2-3 tablets Active Zyprexa 20 MG Orally Once a day 1 tablet 24h Active Loxapine Succinate 50 MG Orally Once a day 1 capsule 24h Active Hydrocodone-Acetaminophen 5-325 MG Orally 2 times a day 1 tablet as needed 12h 12 May, 2018 28 days Active Toprol XL 25 mg Orally Once a day 1 tablet 24h 90 Active Clopidogrel Bisulfate 75 MG Orally Once a day 1 tablet 24h Active Cyclobenzaprine HCl 10 mg Orally at bedtime 1 tab Oct, Active Orphenadrine Citrate ER 100 MG Orally Once a day 1 tablet at bedtime 24h Active Ibuprofen 800 MG Orally Three times a day 1 tablet with food or milk as needed 8h Nov, 30 days Active Atorvastatin Calcium 80 MG Orally Once a day 1 tablet 24h Active Depakote 500 MG Orally Once a day 2 tablets 24h Active Paroxetine HCl 20 MG Orally Once a day 1 tablet in the morning 24h Active ASA 1 tab Active RESULTS No Results PROCEDURES Procedure Date Ordered Result Body Site [facility] VISIT ESTABLISHED PATIENT May 30, 2018 THER/PROPH/DIAG INJ, SC/IM May 30, 2018 DEPO MEDROL 80 MG/ML May 30, 2018 INSTRUCTIONS MEDICATIONS ADMINISTERED No Known Medications MEDICAL (GENERAL) HISTORY Type Description Date Medical History Hypertension Medical History Anxiety/Sleep Issues Medical History Tumer on Lung 06/2017 Medical History heart stent 03/2018 Surgical History pins in left foot Surgical History heart stent 03/2018 Hospitalization History [facility] ED- Back pain 11/19/2017 Hospitalization History [facility] st[facility] 03/2018
--- OUTSIDE RECORDS SUMMARY | 2018-07-31 22:33 | XMS REPORT ---
Author Author GUERDA RO Organization [facility] Address [address] [place] [address] Care Team Providers Care Leather Goods I Assembler Name Role Phone GUERDA RO Unavailable PROBLEMS Type Condition ICD9-CM Code XOZ15-HU Code Onset Dates Condition Status SNOMED Code Problem Coronary artery disease involving [place] coronary artery of [place] heart without angina pectoris I25.10 Active 6009699770867 Problem Pulmonary nodules R91.8 Active 266954414 Problem Lumbar radiculopathy M54.16 Active 479831244 Problem Schizophrenia, unspecified type F20.9 Active 94764651 Problem Generalized idiopathic epilepsy and epileptic syndromes, without status epilepticus, 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 Active 88114675 ALLERGIES No Known Allergies ENCOUNTERS Encounter Location Date Diagnosis [place] [address] [place] [id number] [place] [address] 77239- 4395 Mar, Lumbar radiculopathy M54.16 and Coronary artery disease involving [place] coronary artery of [place] heart without angina pectoris I25.10 [place] [address] [place] [id number] [place] [address] 67852- 7147 Feb, Other chest pain R07.89 and Lumbar radiculopathy M54.16 [place] [address] [place] [id number] [place] [address] 62359- 5416 Jan, Radiculopathy of lumbar region M54.16 [place] [address] [place] [id number] [place] [address] 70272- 9158 Jan, [place] [address] [place] [id number] [place] [address] 60149- 4946 18 Jan, 2018 Radiculopathy of lumbar region M54.16 [place] [address] [place] [id number] [place] [address] 06869- 2765 Jan, [facility] [address] [address]- 6771 Jan, Lumbar radiculopathy M54.16 [facility] [address] [place] [id number] [place] [address] 73473- 8084 Nov, Lumbar radiculopathy M54.16 [facility] [address] [place] [id number] [place] [address] 20669- 0480 Oct, [facility] [address] [place] [id number] [place] [address] 30570- 7540 Oct, Pulmonary nodules R91.8 ; Lumbar radiculopathy M54.16 ; Generalized idiopathic epilepsy and epileptic syndromes, without status epilepticus, 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 and Schizophrenia, unspecified type F20.9 [facility] [address] [place] [id number] [place] [address] 36192- 3963 Sep, Lumbar back pain M54.5 [facility] [address] [place] [id number] [place] [address] 35071- 1902 Sep, [facility] [address] [place] [id number] [place] [address] 15866- 1906 Sep, Pulmonary nodules/lesions, multiple R91.8 [facility] [address] [place] [id number] [place] [address] 05672- 2482 Aug, [facility] [address] [place] [id number] [place] [address] 70535- 4716 Aug, Lumbar back pain M54.5 [facility] [address] [place] [address] 95970- 6525 Jul, [facility] [address] [place] [id number] [place] [address] 13524- 0130 Jul, [facility] [address] [place] [id number] [place] [address] 90095- 4243 Jul, Lumbar back pain M54.5 [facility] [address] [place] [address] [place] [address]- 6150 Jul, Pulmonary nodules/lesions, multiple R91.8 [facility] [address] [place] [id number] [place] [address] 46788- 2388 Jun, Pulmonary nodules/lesions, multiple R91.8 [facility] [address] [place] [id number] [place] [address] 67049- 0185 Jun, [facility] [address] 11301- 1463 December, [facility] [address] [place] [id number] [place] [address] 42640- 6535 Jan, Migraine without status migrainosus, not intractable, unspecified migraine type G43.909 [facility] [address] [place] [id number] [place] [address] 13510- 0762 December, [facility] [address] [place] [id number] [place] [address] 12633- 1729 December, Right groin pain R10.30 and Generalized headaches R51 [facility] [address] [place] [id number] [place] [address] 56416- 2617 Nov, [facility] [address] [place] [id number] [place] [address] 95632- 9514 Nov, [facility] [address] [place] [id number] [place] [address] 43551- 5922 Aug, Right hand fracture, closed, initial encounter S62.91XA ; Cough R05 and High blood pressure (not hypertension) R03.0 [facility] [address] [place] [id number] [place] [address] 95331- 3935 10 Apr, 2015 [facility] [address] 41435- 7782 Mar, [facility] [address] [place] [id number] [place] [address] 06545- 5279 Feb, Tinea corporis 110.5 [facility] [address] [place] [id number] [address]- 0948 Nov, [facility] [address] [facility] [id number] [address]- 8502 Nov, [facility] [address] [place] [id number] [address]- 0198 Apr, [facility] [address] [facility] [id number] [address]- 1471 Apr, [facility] [address] [facility] [id number] [address]- 2126 Jan, [facility] [address] [facility] [id number] [address]- 7698 December, IMMUNIZATIONS No Known Immunizations SOCIAL HISTORY Never Assessed REASON FOR VISIT F/U Pt recently had stents put in heart Pt c/o blisters on hands [place] PLAN OF CARE Activity Details Follow Up 3 Months Reason: VITAL SIGNS Height 69 in 2018-04-07 Weight 243.4 lbs 2018-04-07 Temperature 98.6 degrees Fahrenheit 2018-04-07 Heart Rate 80 bpm 2018-04-07 Respiratory Rate 18 2018-04-07 BMI 35.94 kg/m2 2018-04-07 Blood pressure systolic 142 mmHg 2018-04-07 Blood pressure diastolic 84 mmHg 2018-04-07 MEDICATIONS Medication Instructions Dosage Frequency Start Date End Date Duration Status Depakote 500 MG Orally Once a day 2 tablets 24h Active Hydrocodone-Acetaminophen 5-325 MG Orally 2 times a day 1 tablet as needed 12h 20 Mar, 2018 17 Apr, 2018 28 days Active Zyprexa 20 MG Orally Once a day 1 tablet 24h Active Loxapine Succinate 50 MG Orally Once a day 1 capsule 24h Active Ibuprofen 800 MG Orally Three times a day 1 tablet with food or milk as needed 8h 23 Nov, 2017 30 days Active Orphenadrine Citrate ER 100 MG Orally Once a day 1 tablet at bedtime 24h Active Amitriptyline HCl 25 MG Orally at bedtime 2-3 tablets Active Clopidogrel Bisulfate 75 MG Orally Once a day 1 tablet 24h Active Cyclobenzaprine HCl 10 mg Orally at bedtime 1 tab Oct, Active ASA 1 tab Active Toprol XL 25 mg Orally Once a day 1 tablet 24h 90 Active Paroxetine HCl 20 MG Orally Once a day 1 tablet in the morning 24h Active Atorvastatin Calcium 80 MG Orally Once a day 1 tablet 24h Active RESULTS No Results PROCEDURES Procedure Date Ordered Result Body Site [facility] VISIT ESTABLISHED PATIENT Apr 07, 2018 INSTRUCTIONS MEDICATIONS ADMINISTERED No Known Medications MEDICAL (GENERAL) HISTORY Type Description Date Medical History Hypertension Medical History Anxiety/Sleep Issues Medical History Tumer on Lung 06/2017 Medical History heart stent 03/2018 Surgical History pins in left foot Surgical History heart stent 03/2018 Hospitalization History [facility]- Back pain 11/19/2017 Hospitalization History [facility] st[facility] 03/2018
--- OUTSIDE RECORDS SUMMARY | 2018-07-31 22:33 | XMS REPORT ---
Author Author GUERDA RO Organization [facility] [place] Address [address] [place] [address] Care Team Providers Care Pediatric Assistant Name Role Phone GUERDA RO Unavailable PROBLEMS Type Condition ICD9-CM Code [id number] Code Onset Dates Condition Status SNOMED Code Problem Coronary artery disease involving [place] coronary artery of [place] heart without angina pectoris I25.10 Active 8932715696616 Problem Pulmonary nodules R91.8 Active 761149839 Problem Lumbar radiculopathy M54.16 Active 560603686 Problem Schizophrenia, unspecified type F20.9 Active 16521809 Problem Generalized idiopathic epilepsy and epileptic syndromes, without status epilepticus, 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 Active 39036083 ALLERGIES No Known Allergies ENCOUNTERS Encounter Location Date Diagnosis [place] [id number] [place] [address] 12315- 9545 Mar, Lumbar radiculopathy M54.16 and Coronary artery disease involving [place] coronary artery of [place] heart without angina pectoris I25.10 [place] [id number] [place] [address] 95072- 9195 Feb, Other chest pain R07.89 and Lumbar radiculopathy M54.16 [place] [id number] [place] [address] 60565- 4691 Jan, Radiculopathy of lumbar region M54.16 [place] [id number] [place] [address] 54658- 3345 Jan, [place] [id number] [place] [address] 32011- 1561 18 Jan, 2018 Radiculopathy of lumbar region M54.16 [place] [address] 77914- 1391 Jan, [facility] [place] [address] [address] 6[address] Jan, Lumbar radiculopathy M54.16 [facility] [place] [id number] [place] [address] 21998- 5465 Nov, Lumbar radiculopathy M54.16 [facility] [place] [id number] [place] [address] 00805- 5550 Oct, [facility] [place] [id number] [place] [address] 93597- 6772 Oct, Pulmonary nodules R91.8 ; Lumbar radiculopathy M54.16 ; Generalized idiopathic epilepsy and epileptic syndromes, without status epilepticus, 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 and Schizophrenia, unspecified type F20.9 [facility] [place] [id number] [place] [address] 13648- 2843 Sep, Lumbar back pain M54.5 [facility] [place] [id number] [place] [address] 34715- 5605 Sep, [facility] [place] [id number] [place] [address] 32842- 9041 Sep, Pulmonary nodules/lesions, multiple R91.8 [facility] [place] [id number] [place] [address] 84417- 7485 Aug, [facility] [place] [id number] [place] [address] 21671- 4207 Aug, Lumbar back pain M54.5 [facility] [place] [id number] [place] [address] 63497- 3756 Jul, [facility] [place] [id number] [place] [address] 92101- 2659 Jul, [facility] [place] [id number] [place] [address] 53378- 1822 Jul, Lumbar back pain M54.5 [facility] [place] [address] [place] [address]- 6539 Jul, Pulmonary nodules/lesions, multiple R91.8 [facility] [place] [id number] [place] [address] 69212- 3782 Jun, Pulmonary nodules/lesions, multiple R91.8 [facility] [place] [id number] [place] [address] 19839- 1365 Jun, [facility] [place] [address] 05865- 9809 December, [facility] [place] [id number] [place] [address] 10521- 0713 Jan, Migraine without status migrainosus, not intractable, unspecified migraine type G43.909 [facility] [place] [id number] [place] [address] 01514- 5626 December, [facility] [place] [id number] [place] [address] 31419- 9801 December, Right groin pain R10.30 and Generalized headaches R51 [facility] [place] [id number] [place] [address] 36547- 7605 Nov, [facility] [place] [id number] [place] [address] 82536- 2414 Nov, [facility] [place] [id number] [place] [address] 39909- 7498 Aug, Right hand fracture, closed, initial encounter S62.91XA ; Cough R05 and High blood pressure (not hypertension) R03.0 [facility] [place] [id number] [place] [address] 30130- 4934 10 Apr, 2015 [facility] [place] [address] 81493- 0954 Mar, [facility] [place] [id number] [place] [address] 02092- 8877 Feb, Tinea corporis 110.5 [facility] [place] [id number] [address] 2005 14 Nov, 2014 [facility] [place] [address] [facility] [id number] [address] 6911 Nov, [facility] [place] [id number] [address]- 2191 Apr, [facility] [place] [address] [facility] [id number] [address]- 8731 Apr, [facility] [place] [id number] [address]- 2226 Jan, [facility] [place] [address], [place] [address]- 6611 December, IMMUNIZATIONS No Known Immunizations SOCIAL HISTORY Never Assessed REASON FOR VISIT [facility] f/u due to chest pain, referral for stress test-Amber FRANCO PLAN OF CARE Activity Details Follow Up 3 Months Reason: VITAL SIGNS Height 69 in 2018-02-27 Weight 250 lbs 2018-02-27 Temperature 98.4 degrees Fahrenheit 2018-02-27 Heart Rate 76 bpm 2018-02-27 Respiratory Rate 18 2018-02-27 BMI 36.91 kg/m2 2018-02-27 Blood pressure systolic 134 mmHg 2018-02-27 Blood pressure diastolic 92 mmHg 2018-02-27 MEDICATIONS Medication Instructions Dosage Frequency Start Date End Date Duration Status Amitriptyline HCl 25 MG Orally at bedtime 2-3 tablets Active Loxapine Succinate 50 MG Orally Once a day 1 capsule 24h Active Ibuprofen 800 MG Orally Three times a day 1 tablet with food or milk as needed 8h Nov, 30 days Active Cyclobenzaprine HCl 10 mg Orally at bedtime 1 tab Oct, Active Depakote 500 MG Orally Once a day 2 tablets 24h Active Zyprexa 20 MG Orally Once a day 1 tablet 24h Active Toprol XL 25MG Orally Once a day 1 tablet 24h 90 Active RESULTS No Results PROCEDURES Procedure Date Ordered Result Body Site [facility] VISIT ESTABLISHED PATIENT February 27, 2018 INSTRUCTIONS MEDICATIONS ADMINISTERED No Known Medications MEDICAL (GENERAL) HISTORY Type Description Date Medical History Hypertension Medical History Anxiety/Sleep Issues Medical History Tumer on Lung 06/2017 Medical History heart stent 03/2018 Surgical History pins in left foot Surgical History heart stent 03/2018 Hospitalization History [facility]- Back pain 11/19/2017 Hospitalization History [facility] heart stents 03/2018
--- OUTSIDE RECORDS SUMMARY | 2018-07-31 22:34 | XMS REPORT ---
Author Author GUERDA RO Organization [facility] Address [address] [place] [address] Care Team Providers Care Fiber Glass Worker Name Role Phone GUERDA RO Unavailable PROBLEMS Type Condition ICD9-CM Code BVJ66-OP Code Onset Dates Condition Status SNOMED Code Problem Coronary artery disease involving [place] coronary artery of [place] heart without angina pectoris I25.10 Active 8688019517325 Problem Pulmonary nodules R91.8 Active 901300763 Problem Lumbar radiculopathy M54.16 Active 324581186 Problem Schizophrenia, unspecified type F20.9 Active 36770763 Problem Generalized idiopathic epilepsy and epileptic syndromes, without status epilepticus, 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 Active 15606964 ALLERGIES No Information ENCOUNTERS Encounter Location Date Diagnosis [place] [id number] [place] [address] 23603- 9057 Mar, Lumbar radiculopathy M54.16 and Coronary artery disease involving [place] coronary artery of [place] heart without angina pectoris I25.10 [place] [id number] [place] [address] 27005- 5025 Feb, Other chest pain R07.89 and Lumbar radiculopathy M54.16 [place] [id number] [place] [address] 98540- 3692 Jan, Radiculopathy of lumbar region M54.16 [place] [id number] [place] [address] 84224- 4797 Jan, [place] [id number] [place] [address] 73027- 7766 18 Jan, 2018 Radiculopathy of lumbar region M54.16 [place] [address] 82461- 7273 Jan, [facility] [id number] [place] [address] 61505- 9131 Jan, Lumbar radiculopathy M54.16 [facility] [id number] [place] [address] 29531- 6767 Nov, Lumbar radiculopathy M54.16 [facility] [id number] [place] [address] 63257- 4036 Oct, [facility] [id number] [place] [address] 23594- 7515 Oct, Pulmonary nodules R91.8 ; Lumbar radiculopathy M54.16 ; Generalized idiopathic epilepsy and epileptic syndromes, without status epilepticus, 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 and Schizophrenia, unspecified type F20.9 [facility] [id number] [place] [address] 03147- 5298 Sep, Lumbar back pain M54.5 [facility] [id number] [place] [address] 28857- 1572 Sep, [facility] [id number] [place] [address] 16505- 7454 Sep, Pulmonary nodules/lesions, multiple R91.8 [facility] [id number] [place] [address] 93002- 7214 Aug, [facility] [id number] [place] [address] 11582- 7320 Aug, Lumbar back pain M54.5 [facility] [id number] [place] [address] 04676- 8381 Jul, [facility] [id number] [place] [address] 55057- 0948 Jul, [facility] [id number] [place] [address] 38490- 5340 Jul, Lumbar back pain M54.5 [facility] [address] [place] [address]- 6143 Jul, Pulmonary nodules/lesions, multiple R91.8 [facility] [id number] [place] [address] 97674- 1390 Jun, Pulmonary nodules/lesions, multiple R91.8 [facility] [id number] [place] [address] 94350- 5129 Jun, [facility] [address] 23440- 6521 December, [facility] [id number] [place] [address] 55075- 8033 Jan, Migraine without status migrainosus, not intractable, unspecified migraine type G43.909 [facility] [id number] [place] [address] 88729- 8268 December, [facility] [address] 53966- 9875 December, Right groin pain R10.30 and Generalized headaches R51 [facility] [id number] [place] [address] 21028- 7813 Nov, [facility] [id number] [place] [address] 00033- 0971 Nov, [facility] [id number] [place] [address] 97255- 1284 Aug, Right hand fracture, closed, initial encounter S62.91XA ; Cough R05 and High blood pressure (not hypertension) R03.0 [facility] [id number] [place] [address] 69849- 8705 10 Apr, 2015 [facility] [id number] [place] [address] 98459- 2429 Mar, [facility] [id number] [place] [address] 22175- 1055 14 Feb, 2015 Tinea corporis 110.5 [facility] [address] [address] [address]99 14 Nov, 2014 [facility] [id number] [address]- 5478 Nov, [facility] [address] [address]- 9451 Apr, [facility] [id number] [address]- 5961 Apr, [facility] [address] [address]- 2956 Jan, [facility] [id number] [address]- 1774 December, IMMUNIZATIONS No Known Immunizations SOCIAL HISTORY [...] Surgical History heart stent 03/2018 Hospitalization History [facility] ED- Back pain 11/19/2017 [facility]
--- OUTSIDE RECORDS SUMMARY | 2018-07-31 22:34 | XMS REPORT ---
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 Active 65361442 ALLERGIES No Known Allergies ENCOUNTERS Encounter Location Date Diagnosis [place] [address] 47711- 8584 Feb, Other chest pain R07.89 and Lumbar radiculopathy M54.16 [place] [address] 68584- 3942 Jan, Radiculopathy of lumbar region M54.16 [place] [id number] [place] [address] 68499- 1218 Jan, [place] [address] 99183- 8045 18 Jan, 2018 Radiculopathy of lumbar region M54.16 [facility] [id number] [place] [address] 03730- 2698 13 Jan, 2018 [place] [address] 43354- 6821 07 Jan, 2018 Lumbar radiculopathy M54.16 [facility] [id number] [place] [address] 89810- 4499 Nov, Lumbar radiculopathy M54.16 [facility] [id number] [address]- 5057 Oct, [facility] [id number] [place] [address] 59126- 0793 Oct, Pulmonary nodules R91.8 ; Lumbar radiculopathy M54.16 ; Generalized idiopathic epilepsy and epileptic syndromes, without status epilepticus, 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 and Schizophrenia, unspecified type F20.9 [facility] [id number] [place] [address] 82212- 8005 Sep, Lumbar back pain M54.5 [facility] [id number] [place] [address] 85560- 9971 Sep, [facility] [id number] [place] [address] 78812- 4024 Sep, Pulmonary nodules/lesions, multiple R91.8 [facility] [id number] [place] [address] 83352- 6649 Aug, [facility] [id number] [place] [address] 49313- 9576 Aug, Lumbar back pain M54.5 [facility] [id number] [place] [address] 02204- 8143 Jul, [facility] [id number] [place] [address] 95752- 8708 Jul, [facility] [id number] [place] [address] 25133- 6668 Jul, Lumbar back pain M54.5 [facility] [id number] [place] [address] 54115- 4245 Jul, Pulmonary nodules/lesions, multiple R91.8 [facility] [address] [place] [address] 82668- 2754 Jun, Pulmonary nodules/lesions, multiple R91.8 [facility] [id number] [place] [address] 05519- 0973 Jun, [facility] [id number] [place] [address] 17116- 0006 December, [facility] [id number] [place] [address] 71812- 7275 Jan, Migraine without status migrainosus, not intractable, unspecified migraine type G43.909 [facility] [address] 38101- 5065 December, [facility] [address] 37798- 7525 December, Right groin pain R10.30 and Generalized headaches R51 [facility] [id number] [place] [address] 12844- 7434 Nov, [facility] [address] 35958- 2699 Nov, [facility] [id number] [place] [address] 33706- 6089 Aug, Right hand fracture, closed, initial encounter S62.91XA ; Cough R05 and High blood pressure (not hypertension) R03.0 [facility] [id number] [place] [address] 29069- 5585 Apr, [facility] [id number] [place] [address] 73747- 3136 Mar, [facility] [id number] [place] [address] 65226- 6998 Feb, Tinea corporis 110.5 [facility] [address] 85242- 4844 14 Nov, 2014 [facility] [id number] [place] [address] 30195- 2207 Nov, [facility] [id number] [place] [address] 29942- 5378 Apr, [facility] [address] [facility] [place] [id number] [place] [address]- 4094 Apr, [facility] [address] [facility] [id number] [place] [address]- 3952 Jan, [facility] [address] [facility] [id number] [place] [address]- 4423 December, IMMUNIZATIONS No Known Immunizations SOCIAL HISTORY Never Assessed REASON FOR VISIT CT Scan f/u [facility] PLAN OF CARE Activity Details Follow Up 3 Months Reason: VITAL SIGNS Height 69 in 2017-12-09 Weight 254 lbs 2017-12-09 Temperature 98.3 degrees Fahrenheit 2017-12-09 Heart Rate 86 bpm 2017-12-09 Respiratory Rate 20 2017-12-09 BMI 37.51 kg/m2 2017-12-09 Blood pressure systolic 144 mmHg 2017-12-09 Blood pressure diastolic 96 mmHg 2017-12-09 MEDICATIONS Medication Instructions Dosage Frequency Start Date End Date Duration Status Amitriptyline HCl 25 MG Orally at bedtime 2-3 tablets Active Loxapine Succinate 50 MG Orally Once a day 1 capsule 24h Active Cyclobenzaprine HCl 10 mg Orally at bedtime 1 tab Oct, Active Zyprexa 20 MG Orally Once a day 1 tablet 24h Active Depakote 500 MG Orally Once a day 2 tablets 24h Active Ibuprofen 800 MG Orally Three times a day 1 tablet with food or milk as needed 8h Nov, Feb, 30 days Active Hydrocodone-Acetaminophen 5-325 MG Orally 2 times a day 1 tablet as needed 12h Nov, December, 28 days Active RESULTS No Results PROCEDURES Procedure Date Ordered Result Body Site [facility] VISIT ESTABLISHED PATIENT December 09, 2017 INSTRUCTIONS MEDICATIONS ADMINISTERED No Known Medications MEDICAL (GENERAL) HISTORY Type Description Date Medical History Hypertension Medical History Anxiety/Sleep Issues Medical History Tumer on Lung 06/2017 Surgical History pins in left foot Hospitalization History [facility] [place] [facility]- Back pain 11/19/2017
--- OUTSIDE RECORDS SUMMARY | 2018-07-31 22:34 | XMS REPORT ---
Author Author GUERDA RO Organization [facility] Address [address] [place] [address] Care Team Providers Care Radiation Technician Name Role Phone GUERDA RO Unavailable PROBLEMS Type Condition ICD9-CM Code [id number] Code Onset Dates Condition Status SNOMED Code Problem Coronary artery disease involving jackson coronary artery of jackson heart without angina pectoris I25.10 Active 2403757327691 Problem Pulmonary nodules R91.8 Active 562562374 Problem Lumbar radiculopathy M54.16 Active 894088331 Problem Schizophrenia, unspecified type F20.9 Active 41566143 Problem Generalized idiopathic epilepsy and epileptic syndromes, without status epilepticus, 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 Active 29501133 ALLERGIES No Information ENCOUNTERS Encounter Location Date Diagnosis [place] [id number] [place] [address] 58066- 6859 Mar, Lumbar radiculopathy M54.16 and Coronary artery disease involving jackson coronary artery of jackson heart without angina pectoris I25.10 [place] [id number] [place] [address] 42556- 8862 Feb, Other chest pain R07.89 and Lumbar radiculopathy M54.16 [place] [id number] [place] [address] 45453- 4521 Jan, Radiculopathy of lumbar region M54.16 [place] [id number] [place] [address] 23315- 4970 Jan, [place] [id number] [place] [address] 17321- 0141 18 Jan, 2018 Radiculopathy of lumbar region M54.16 [place] [address] 9[address]16- 1144 Jan, [facility] [id number] [place] [address] 87252- 0017 Jan, Lumbar radiculopathy M54.16 [facility] [id number] [place] [address] 94842- 0539 Nov, Lumbar radiculopathy M54.16 [facility] [id number] [place] [address] 28460- 1960 Oct, [facility] [id number] [place] [address] 03311- 5061 Oct, Pulmonary nodules R91.8 ; Lumbar radiculopathy M54.16 ; Generalized idiopathic epilepsy and epileptic syndromes, without status epilepticus, 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 and Schizophrenia, unspecified type F20.9 [facility] [id number] [place] [address] 32791- 0482 Sep, Lumbar back pain M54.5 [facility] [id number] [place] [address] 52319- 9388 Sep, [facility] [id number] [place] [address] 40025- 2364 Sep, Pulmonary nodules/lesions, multiple R91.8 [facility] [id number] [place] [address] 45912- 5324 Aug, [facility] [id number] [place] [address] 54501- 2172 Aug, Lumbar back pain M54.5 [facility] [id number] [place] [address] 41573- 3711 Jul, [facility] [id number] [place] [address] 26697- 6272 Jul, [facility] [id number] [place] [address] 66040- 2504 Jul, Lumbar back pain M54.5 [facility] [address] [place] [address]- 8674 Jul, Pulmonary nodules/lesions, multiple R91.8 [facility] [id number] [place] [address] 81210- 9093 Jun, Pulmonary nodules/lesions, multiple R91.8 [facility] [id number] [place] [address] 09480- 6429 Jun, [facility] [address] 47959- 4943 December, [facility] [id number] [place] [address] 48611- 9987 Jan, Migraine without status migrainosus, not intractable, unspecified migraine type G43.909 [facility] [id number] [place] [address] 41914- 0160 December, [facility] [address] 11289- 3080 December, Right groin pain R10.30 and Generalized headaches R51 [facility] [id number] [place] [address] 16719- 6355 Nov, [facility] [id number] [place] [address] 11426- 4571 Nov, [facility] [id number] [place] [address] 41429- 2788 Aug, Right hand fracture, closed, initial encounter S62.91XA ; Cough R05 and High blood pressure (not hypertension) R03.0 [facility] [id number] [place] [address] 26189- 4519 10 Apr, 2015 [facility] [id number] [place] [address] 11262- 2242 Mar, [facility] [id number] [place] [address] 44800- 2171 14 Feb, 2015 Tinea corporis 110.5 [facility] [address] [address]687 14 Nov, 2014 [facility] [id number] [address]- 0339 Nov, [facility] [address] [place] [address]- 7228 Apr, [facility] [id number] [address]- 8504 Apr, [facility] [address] [place] [address]- 5438 Jan, [facility] [id number] [address]- 6528 December, IMMUNIZATIONS No Known Immunizations SOCIAL HISTORY Never Assessed REASON FOR VISIT Referral PLAN OF CARE VITAL SIGNS MEDICATIONS Unknown Medications RESULTS No Results PROCEDURES No Known procedures INSTRUCTIONS MEDICATIONS ADMINISTERED No Known Medications MEDICAL (GENERAL) HISTORY Type Description Date Medical History Hypertension Medical History Anxiety/Sleep Issues Medical History Tumer on Lung 06/2017 Medical History heart stent 03/2018 Surgical History pins in left foot Surgical History heart stent 03/2018 Hospitalization History [facility], operated by [facility] ED- Back pain 11/19/2017 Hospitalization History [facility] st[facility] 03/2018
--- OUTSIDE RECORDS SUMMARY | 2018-07-31 22:34 | XMS REPORT ---
Author Author GUERDA RO Organization [facility] Address [address] [place] [address] Care Team Providers Care Cloth Desizing Range Operator Chief Name Role Phone GUERDA RO Unavailable PROBLEMS Type Condition ICD9-CM Code [id number] Code Onset Dates Condition Status SNOMED Code Problem Coronary artery disease involving ute mountain coronary artery of ute mountain heart without angina pectoris I25.10 Active 3312891554731 Problem Pulmonary nodules R91.8 Active 968466367 Problem Lumbar radiculopathy M54.16 Active 293848122 Problem Schizophrenia, unspecified type F20.9 Active 67221883 Problem Generalized idiopathic epilepsy and epileptic syndromes, without status epilepticus, 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 Active 10490304 ALLERGIES No Known Allergies ENCOUNTERS Encounter Location Date Diagnosis [place] [id number] [place] [address] 46184- 3787 Mar, Lumbar radiculopathy M54.16 and Coronary artery disease involving ute mountain coronary artery of ute mountain heart without angina pectoris I25.10 [place] [id number] [place] [address] 17554- 7295 Feb, Other chest pain R07.89 and Lumbar radiculopathy M54.16 [place] [id number] [place] [address] 28292- 7684 Jan, Radiculopathy of lumbar region M54.16 [place] [id number] [place] [address] 07174- 9203 Jan, [place] [id number] [place] [address] 47600- 2852 18 Jan, 2018 Radiculopathy of lumbar region M54.16 [place] [id number] [place] [address] 74567- 7492 Jan, [facility] [address] [address]- 9371 Jan, Lumbar radiculopathy M54.16 [facility] [id number] [place] [address] 50301- 6917 Nov, Lumbar radiculopathy M54.16 [facility] [id number] [place] [address] 60605- 8898 Oct, [facility] [id number] [place] [address] 46968- 2053 Oct, Pulmonary nodules R91.8 ; Lumbar radiculopathy M54.16 ; Generalized idiopathic epilepsy and epileptic syndromes, without status epilepticus, 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 and Schizophrenia, unspecified type F20.9 [facility] [id number] [place] [address] 89083- 2602 Sep, Lumbar back pain M54.5 [facility] [id number] [place] [address] 76239- 9725 Sep, [facility] [id number] [place] [address] 58491- 6681 Sep, Pulmonary nodules/lesions, multiple R91.8 [facility] [id number] [place] [address] 49855- 2762 Aug, [facility] [id number] [place] [address] 43828- 2961 Aug, Lumbar back pain M54.5 [facility] [address] [place] [address] 24936- 1533 Jul, [facility] [id number] [place] [address] 72542- 2145 Jul, [facility] [id number] [place] [address] 78765- 9516 Jul, Lumbar back pain M54.5 [facility] [address] [place] [address]- 6902 Jul, Pulmonary nodules/lesions, multiple R91.8 [facility] [id number] [place] [address] 22902- 1989 Jun, Pulmonary nodules/lesions, multiple R91.8 [facility] [id number] [place] [address] 20549- 4666 Jun, [facility] [address] 11668- 5996 December, [facility] [id number] [place] [address] 38668- 2938 Jan, Migraine without status migrainosus, not intractable, unspecified migraine type G43.909 [facility] [id number] [place] [address] 50802- 4039 December, [facility] [id number] [place] [address] 53731- 8073 December, Right groin pain R10.30 and Generalized headaches R51 [facility] [id number] [place] [address] 26792- 6157 Nov, [facility] [id number] [place] [address] 20681- 7085 Nov, [facility] [id number] [place] [address] 35630- 3992 Aug, Right hand fracture, closed, initial encounter S62.91XA ; Cough R05 and High blood pressure (not hypertension) R03.0 [facility] [id number] [place] [address] 83507- 7867 10 Apr, 2015 [facility] [address] 61759- 1114 Mar, [facility] [id number] [place] [address] 47874- 3713 Feb, Tinea corporis 110.5 [facility] [id number] [address]- 9713 Nov, [facility] [address] [facility] [id number] [address]- 9207 Nov, [facility] [id number] [address]- 0548 Apr, [facility] [address] [facility] [id number] [address]- 1745 Apr, [facility] [address] [facility] [id number] [address]- 6151 Jan, [facility] [address] [facility] [id number] [address]- 8008 December, IMMUNIZATIONS No Known Immunizations SOCIAL HISTORY Never Assessed REASON FOR VISIT lower back pain WB-MA, Pain has been occuring the past two years PLAN OF CARE Activity Details Follow Up 3 Months Reason: VITAL SIGNS Height 69 in 2018-01-23 Weight 264 lbs 2018-01-23 Temperature 97.3 degrees Fahrenheit 2018-01-23 Heart Rate 80 bpm 2018-01-23 Respiratory Rate 20 2018-01-23 BMI 38.98 kg/m2 2018-01-23 Blood pressure systolic 152 mmHg 2018-01-23 Blood pressure diastolic 92 mmHg 2018-01-23 MEDICATIONS Medication Instructions Dosage Frequency Start Date End Date Duration Status Depakote 500 MG Orally Once a day 2 tablets 24h Active Loxapine Succinate 50 MG Orally Once a day 1 capsule 24h Active Toprol XL 25MG Orally Once a day 1 tablet 24h 90 Active Amitriptyline HCl 25 MG Orally at bedtime 2-3 tablets Active Ibuprofen 800 MG Orally Three times a day 1 tablet with food or milk as needed 8h Nov, Feb, 30 days Active Cyclobenzaprine HCl 10 mg Orally at bedtime 1 tab Oct, Active Zyprexa 20 MG Orally Once a day 1 tablet 24h Active RESULTS Name Result Date Reference Range MRI : Lumbar w/o contrast 2018-02-01 PROCEDURES Procedure Date Ordered Result Body Site [facility] VISIT ESTABLISHED PATIENT January 23, 2018 INSTRUCTIONS MEDICATIONS ADMINISTERED No Known Medications MEDICAL (GENERAL) HISTORY Type Description Date Medical History Hypertension Medical History Anxiety/Sleep Issues Medical History Tumer on Lung 06/2017 Medical History heart stent 03/2018 Surgical History pins in left foot Surgical History heart stent 03/2018 Hospitalization History [facility]- Back pain 11/19/2017 Hospitalization History [facility] heart stents 03/2018
--- OUTSIDE RECORDS SUMMARY | 2018-07-31 22:34 | XMS REPORT ---
Author Author GUERDA RO Organization [facility] Address [address] [place] [address] Care Team Providers Care Recenterer Name Role Phone GUERDA RO Unavailable PROBLEMS Type Condition ICD9-CM Code [id number]-ZU Code Onset Dates Condition Status SNOMED Code Problem Coronary artery disease involving chenega coronary artery of chenega heart without angina pectoris I25.10 Active 9665759115668 Problem Pulmonary nodules R91.8 Active 965155845 Problem Lumbar radiculopathy M54.16 Active 446620866 Problem Schizophrenia, unspecified type F20.9 Active 38655168 Problem Generalized idiopathic epilepsy and epileptic syndromes, without status epilepticus, 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 Active 74781196 ALLERGIES No Information ENCOUNTERS Encounter Location Date Diagnosis [place] [id number] [place] [address] 58378- 2556 Mar, Lumbar radiculopathy M54.16 and Coronary artery disease involving chenega coronary artery of chenega heart without angina pectoris I25.10 [place] [id number] [place] [address] 60588- 5317 Feb, Other chest pain R07.89 and Lumbar radiculopathy M54.16 [place] [id number] [place] [address] 83179- 4510 Jan, Radiculopathy of lumbar region M54.16 [place] [id number] [place] [address] 02195- 9486 Jan, [place] [id number] [place] [address] 04515- 2815 18 Jan, 2018 Radiculopathy of lumbar region M54.16 [place] [address] 98587- 0885 Jan, [facility] [id number] [place] [address] 23273- 2213 Jan, Lumbar radiculopathy M54.16 [facility] [id number] [place] [address] 32456- 7041 Nov, Lumbar radiculopathy M54.16 [facility] [id number] [place] [address] 91279- 8082 Oct, [facility] [id number] [place] [address] 27755- 2945 Oct, Pulmonary nodules R91.8 ; Lumbar radiculopathy M54.16 ; Generalized idiopathic epilepsy and epileptic syndromes, without status epilepticus, 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 and Schizophrenia, unspecified type F20.9 [facility] [id number] [place] [address] 87036- 0507 Sep, Lumbar back pain M54.5 [facility] [id number] [place] [address] 24204- 8177 Sep, [facility] [id number] [place] [address] 45839- 5497 Sep, Pulmonary nodules/lesions, multiple R91.8 [facility] [id number] [place] [address] 48571- 2598 Aug, [facility] [id number] [place] [address] 98498- 8713 Aug, Lumbar back pain M54.5 [facility] [id number] [place] [address] 94094- 3971 Jul, [facility] [id number] [place] [address] 34425- 3973 Jul, [facility] [id number] [place] [address] 72454- 3681 Jul, Lumbar back pain M54.5 [facility] [address] [place] [address]- 2408 Jul, Pulmonary nodules/lesions, multiple R91.8 [facility] [id number] [place] [address] 10789- 1233 Jun, Pulmonary nodules/lesions, multiple R91.8 [facility] [id number] [place] [address] 71968- 9148 Jun, [facility] [address] 91787- 6279 December, [facility] [id number] [place] [address] 26850- 2721 Jan, Migraine without status migrainosus, not intractable, unspecified migraine type G43.909 [facility] [id number] [place] [address] 04000- 7085 December, [facility] [address] 07553- 3962 December, Right groin pain R10.30 and Generalized headaches R51 [facility] [id number] [place] [address] 82227- 3501 Nov, [facility] [id number] [place] [address] 53393- 9434 Nov, [facility] [id number] [place] [address] 48385- 1789 Aug, Right hand fracture, closed, initial encounter S62.91XA ; Cough R05 and High blood pressure (not hypertension) R03.0 [facility] [id number] [place] [address] 28157- 0443 10 Apr, 2015 [facility] [id number] [place] [address] 78566- 1085 Mar, [facility] [id number] [place] [address] 67327- 9619 14 Feb, 2015 Tinea corporis 110.5 [facility] [address] [address] 1624 14 Nov, 2014 [facility] [id number] [address]- 0810 Nov, [facility] [address], [place] [address]- 6346 Apr, [facility] [id number], [place] [address]- 8942 Apr, [facility] [address], [place] [address]- 7322 Jan, [facility] [id number], [place] [address]- 1822 December, IMMUNIZATIONS No Known Immunizations SOCIAL HISTORY [...] Surgical History heart stent 03/2018 Hospitalization History [facility] ED- Back pain 11/19/2017 Hospitalization History [facility] st[facility] 03/2018
--- OUTSIDE RECORDS SUMMARY | 2018-07-31 22:34 | XMS REPORT ---
Author Author GUERDA RO Organization [facility] Address [address] [place] [address] Care Team Providers Care Highway Painter Helper Name Role Phone GUERDA RO Unavailable PROBLEMS Type Condition ICD9-CM Code QLU05-WX Code Onset Dates Condition Status SNOMED Code Problem Coronary artery disease involving augustine coronary artery of augustine heart without angina pectoris I25.10 Active 5295856894598 Problem Pulmonary nodules R91.8 Active 370160135 Problem Lumbar radiculopathy M54.16 Active 257823013 Problem Schizophrenia, unspecified type F20.9 Active 10054567 Problem Generalized idiopathic epilepsy and epileptic syndromes, without status epilepticus, 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 Active 81503510 ALLERGIES No Information ENCOUNTERS Encounter Location Date Diagnosis [place] [id number] [place] [address]- 1956 Mar, Lumbar radiculopathy M54.16 and Coronary artery disease involving augustine coronary artery of augustine heart without angina pectoris I25.10 [place] [id number] [place] [address] 09805- 6241 Feb, Other chest pain R07.89 and Lumbar radiculopathy M54.16 [place] [id number] [place] [address] 55756- 5837 Jan, Radiculopathy of lumbar region M54.16 [place] [id number] [place] [address] 99128- 5727 Jan, [place] [id number] [place] [address] 16609- 2969 18 Jan, 2018 Radiculopathy of lumbar region M54.16 [place] [address] [address]- [address] Jan, [facility] [id number] [place] [address] 51432- 8734 Jan, Lumbar radiculopathy M54.16 [facility] [id number] [place] [address] 97177- 7212 Nov, Lumbar radiculopathy M54.16 [facility] [id number] [place] [address] 95157- 7338 Oct, [facility] [id number] [place] [address] 13530- 7193 Oct, Pulmonary nodules R91.8 ; Lumbar radiculopathy M54.16 ; Generalized idiopathic epilepsy and epileptic syndromes, without status epilepticus, 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 and Schizophrenia, unspecified type F20.9 [facility] [id number] [place] [address] 86953- 6035 Sep, Lumbar back pain M54.5 [facility] [id number] [place] [address] 44893- 1561 Sep, [facility] [id number] [place] [address] 21594- 0318 Sep, Pulmonary nodules/lesions, multiple R91.8 [facility] [id number] [place] [address] 84391- 2837 Aug, [facility] [id number] [place] [address] 31531- 5616 Aug, Lumbar back pain M54.5 [facility] [id number] [place] [address] 23232- 9593 Jul, [facility] [id number] [place] [address] 92026- 8256 Jul, [facility] [id number] [place] [address] 53388- 3902 Jul, Lumbar back pain M54.5 [facility] [address] [place] [address] Jul, Pulmonary nodules/lesions, multiple R91.8 [facility] [id number] [place] [address] 57832- 3401 Jun, Pulmonary nodules/lesions, multiple R91.8 [facility] [id number] [place] [address] 61525- 4437 Jun, [facility] [address] 90362- 7673 December, [facility] [id number] [place] [address] 52163- 2896 Jan, Migraine without status migrainosus, not intractable, unspecified migraine type G43.909 [facility] [id number] [place] [address] 16464- 3982 December, [facility] [address] 88451- 4532 December, Right groin pain R10.30 and Generalized headaches R51 [facility] [id number] [place] [address] 49048- 0897 Nov, [facility] [id number] [place] [address] 50218- 7533 Nov, [facility] [id number] [place] [address] 83972- 1602 Aug, Right hand fracture, closed, initial encounter S62.91XA ; Cough R05 and High blood pressure (not hypertension) R03.0 [facility] [id number] [place] [address] 68127- 1677 10 Apr, 2015 [facility] [id number] [place] [address] 54854- 3708 Mar, [facility] [id number] [place] [address] 94510- 7857 14 Feb, 2015 Tinea corporis 110.5 [facility] [address] [address] 14 Nov, 2014 [facility] [id number] [address] 5596 Nov, [facility] [address] [place] [address] 39[address] Apr, [facility] [id number] [address] 2[address] Apr, [facility] [address] [place] [address] 3[address] Jan, [facility] [id number] [place] [address] 1698 December, IMMUNIZATIONS No Known Immunizations SOCIAL HISTORY [...] Surgical History heart stent 03/[address] [facility] ED- Back pain 11/19/2017 Hospitalization History [facility] heart stents 03/2018
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
--- NOTE | 2018-07-31 22:40 | ED Chest Pain ---
General Stated Complaint: CHEST PAIN Source: patient Exam Limitations: no limitations (JULIANA CARMONA APRN) History of Present Illness Date Seen by Provider: Jul 31, 2018 Time Seen by Provider: 22:39 Initial Comments To ER with left-sided chest pain that he rates at 9 out of 10 described as twisting and tight that began 2 weeks ago and has been constant since then. States that he was seen here about 5 months ago and had 2 coronary stents placed. Aside from hypertension and coronary artery disease he does not know of any other medical problems that he has. He does have associated shortness of breath with this, no nausea or vomiting, no diaphoresis. He also reports urinating blood 2-3 days but denies any abdominal pain fevers or chills. Timing/Duration: constant, getting worse Severity/Quality: moderate Location: central Radiation: no radiation Activities at Onset: none ASA po RETAIL POS SPECIALIST: No NTG SL RETAIL POS SPECIALIST: No Associated Symptoms: No abdominal pain, No nausea/vomiting; shortness of breath (JULIANA CARMONA APRN) Allergies and Home Medications Allergies Coded Allergies: No Known Drug Allergies (Unverified , 12/15/12) Home Medications Amitriptyline HCl 25 Mg Tablet, 50-75 MG PO HS, (Reported) Aspirin 81 Mg Tab.chew, 81 MG PO DAILY Prescribed by: SHWETA RICHARDS on 03/05/18926 Atorvastatin Calcium 80 Mg Tablet, 80 MG PO HS Prescribed by: SHWETA RICHARDS on 03/05/18926 Clopidogrel Bisulfate 75 Mg Tablet, 75 MG PO DAILY Prescribed by: SHWETA RICHARDS on 03/05/18926 Cyclobenzaprine HCl 10 Mg Tablet, 10 MG PO HS, (Reported) Loxapine Succinate 25 Mg Capsule, 25 MG PO HS, (Reported) Metoprolol Succinate 25 Mg Tab.er.24h, 25 MG PO DAILY, (Reported) Paroxetine HCl 20 Mg Tablet, 20 MG PO DAILY, (Reported) Patient Home Medication List Home Medication List Reviewed: Yes (JULIANA CARMONA APRN) Review of Systems Review of Systems Constitutional: see HPI EENTM: No Symptoms Reported Respiratory: See HPI, Shortness of Air Cardiovascular: See HPI, Chest Pain Gastrointestinal: No Symptoms Reported; Denies Nausea, Denies Vomiting Genitourinary: See HPI, Hematuria Musculoskeletal: no symptoms reported Skin: no symptoms reported Psychiatric/Neurological: No Symptoms Reported Endocrine: No Symptoms Reported (JULIANA CARMONA APRN) Past Vmnvclh-Zqmfrz-Xxtibq Hx Patient Social History Alcohol Beverage of Choice: Beer Type Used: Cigarettes Former Smoker, Quit: Mar 04, 2013 2nd Hand Smoke Exposure: No Recent Foreign Travel: No Contact w/Someone Who Travel: No Recent Hopitalizations: No (JULIANA CARMONA APRN) Seasonal Allergies Seasonal Allergies: Yes (JULIANA CARMONA APRN) Past Medical History Surgeries: No Respiratory: No Cardiac: Yes Hypertension Neurological: Yes Neuropathy, Seizure Disorder Reproductive Disorders: No Genitourinary: No Gastrointestinal: No Musculoskeletal: Yes Chronic Back Pain Endocrine: No HEENT: No Cancer: No Psychosocial: Yes Anxiety, Suicide Attempts, Schizophrenia, Depression Integumentary: No Blood Disorders: No Adverse Reaction/Blood Tranf: No (JULIANA CARMONA APRN) Family Medical History No Pertinent Family Hx (JULIANA CARMONA APRN) Physical Exam Vital Signs Vital Signs - First Documented (KEREN HAWK) Vital Signs Capillary Refill : (JULIANA CARMONA APRN) Height, Weight, BMI Height: 5'9.00" Weight: 240lbs. 0.0oz. 108.281864hs; 37.5 BMI Method:Stated (JULIANA CARMONA APRN) General Appearance: No Apparent Distress, WD/WN HEENT: PERRL/EOMI, Moist Mucous Membranes Neck: Full Range of Motion, Normal Inspection Respiratory: Lungs Clear, Normal Breath Sounds, No Accessory Muscle Use, No Respiratory Distress, Other (left upper chest wall is acutely painful to direct palpation. No pain or crepitus in the shoulder) Cardiovascular: Regular Rate, Rhythm, No Edema, Normal Peripheral Pulses Gastrointestinal: Normal Bowel Sounds, Non Tender, Soft Extremity: Normal Capillary Refill, Normal Inspection, No Pedal Edema Neurologic/Psychiatric: Alert, Oriented x3, Other Skin: Normal Color, Warm/Dry (KEREN HAWK) Procedures/Interventions Suture Size: 5-0 (JULIANA CARMONA APRN) Progress/Results/Core Measures Results/Orders Lab Results Laboratory Tests Test 07/31/18 22:50 Range/Units White Blood Count 6.4 4.3-11.0 10^3/uL Red Blood Count 4.91 4.35-5.85 10^6/uL Hemoglobin 14.5 13.3-17.7 G/DL Hematocrit 43 40-54 % Mean Corpuscular Volume 88 80-99 FL Mean Corpuscular Hemoglobin 30 25-34 PG Mean Corpuscular Hemoglobin Concent 33 32-36 G/DL Red Cell Distribution Width 14.5 10.0-14.5 % Platelet Count 314 130-400 10^3/uL Mean Platelet Volume 9.1 7.4-10.4 FL Neutrophils (%) (Auto) 47 42-75 % Lymphocytes (%) (Auto) 45 H 12-44 % Monocytes (%) (Auto) 7 0-12 % Eosinophils (%) (Auto) 1 0-10 % Basophils (%) (Auto) 0 0-10 % Neutrophils # (Auto) 3.0 1.8-7.8 X 10^3 Lymphocytes # (Auto) 2.9 1.0-4.0 X 10^3 Monocytes # (Auto) 0.5 0.0-1.0 X 10^3 Eosinophils # (Auto) 0.1 0.0-0.3 10^3/uL Basophils # (Auto) 0.0 0.0-0.1 10^3/uL Prothrombin Time 13.1 12.2-14.7 SEC INR Comment 1.0 0.8-1.4 Activated Partial Thromboplast Time 34 24-35 SEC Sodium Level 145 135-145 MMOL/L Potassium Level 3.7 3.6-5.0 MMOL/L Chloride Level 108 H 98-107 MMOL/L Carbon Dioxide Level 27 21-32 MMOL/L Anion Gap 10 5-14 MMOL/L Blood Urea Nitrogen 9 7-18 MG/DL Creatinine 1.25 0.60-1.30 MG/DL Estimat Glomerular Filtration Rate > 60 BUN/Creatinine Ratio 7 Glucose Level 103 70-105 MG/DL Calcium Level 10.1 8.5-10.1 MG/DL Corrected Calcium 9.8 8.5-10.1 MG/DL Magnesium Level 2.6 H 1.8-2.4 MG/DL Total Bilirubin 0.6 0.1-1.0 MG/DL Aspartate Amino Transf (AST/SGOT) 21 5-34 U/L Alanine Aminotransferase (ALT/SGPT) 20 0-55 U/L Alkaline Phosphatase 72 40-136 U/L Myoglobin 65.6 10.0-92.0 NG/ML Troponin I < 0.30 <0.30 NG/ML B-Type Natriuretic Peptide 20.3 <100.0 PG/ML Total Protein 7.6 6.4-8.2 GM/DL Albumin 4.4 3.2-4.5 GM/DL Lipase 18 8-78 U/L (KEREN HAWK) Medications Given in ED Current Medications Medications Dose Ordered Sig/Yazmin Route Start Time Stop Time Status Last Admin Dose Admin Aspirin 324 mg ONCE ONCE PO 07/31/18 22:45 07/31/18 22:46 DC 07/31/18 23:28 324 MG Nitroglycerin 0.4 mg UD PRN SL 07/31/18 22:45 07/31/18 23:29 0.4 MG (KEREN HAWK) Vital Signs/I&O 07/31/18 07/31/18 22:35 22:35 Pulse Ox 98 O2 Delivery Room Air Room Air (KEREN HAWK) Progress Progress Note #1: Time: 23:23 Progress Note Assume care of the patient at 2300. I agree with the above listed history and physical exam. Dr. Marie cardiac catheterization 03/04/18 with mid to distal 70% stenosis of the right coronary artery stented 2. Normal global left ventricular systolic function and EF of 65%. Currently rates his chest pain as a 7-8 out of 10 so regimens of nitroglycerin and aspirin and reassess. Blood pressure is elevated at 150/100. ED ACS is 6 points. Low risk by the EDACS Score. If the patient also has: (1) EKG without new ischemic changes and (2) negative initial and 2-hour troponins, then this patient is safe for discharge to early outpatient follow-up investigation (or proceed to earlier inpatient testing). If EKG with ischemic changes or positive troponin, they are not low risk and require normal risk stratification. Progress Note #2: Time: 23:52 Progress Note Patient received some nitroglycerin and does not seem to think that made much of a difference in his symptoms. And from his initial exam till now he seems very disinterested and able to move his shoulder around easily. His pain does not seem to be cardiac in origin and seems to be more musculoskeletal so we'll recommend NSAIDs. With his history of coronary artery disease probably stay away from ketorolac and use Naprosyn one capsule twice a day and follow-up with primary care to consider physical therapy. Tylenol, muscle rubs, chiropractic. Patient now makes me aware that the past 2 weeks she's had some blood seen in his urine after he lifts heavy things. He says it does not hurt when he urinates and he's had no fevers chills. Offered to do a urinalysis tonight or he can follow-up with primary care and he is elected to follow up with primary care. After 2 weeks of left chest pain if it was caused by his heart and we would expect to see an elevation of troponin. (KEREN HAWK) Initial ECG Impression Date: Jul 31, 2018 Initial ECG Impression Time: 22:44 Initial ECG Rate: 58 Initial ECG Rhythm: Normal Sinus Initial ECG Intervals: MO (220) Initial ECG Impression: 1st Degree AV Block Initial ECG Comparisson: Unchanged Comment No ST elevation or depression. The first-degree AV block and other abnormalities were seen in previous EKGs. (KEREN HAWK) Diagnostic Imaging Diagonstic Imaging: Xray Plain Films/CT/US/NM/MRI: chest (1v) Comments No acute cardiopulmonary processes noted. Reviewed: Reviewed by Me (KEREN HAWK) Departure Impression Primary Impression: Left-sided chest wall pain Additional Impression: History of gross hematuria Disposition: 01 HOME, SELF-CARE Condition: Stable Departure-Patient Inst. Decision time for Depature: 23:59 (KEREN HAWK) Referrals: GUERDA RO MD (PCP/Family) Primary Care Physician Patient Instructions: Chest Pain That Is Not Caused by the Heart (DC) Add. Discharge Instructions: Start taking Naprosyn 2 capsules twice a day on a regular schedule for the next week and then follow up with primary care to discuss your shoulder. You can also use creams such as icy hot, Tylenol 1000 mg every 8 hours, chiropractor or talk about physical therapy with your primary doctor. Tomorrow call your x ray technician and asked for a follow-up appointment. Tomorrow call your primary care doctor and ask to have your blood in the urine worked up with a urinalysis outpatient and a follow-up appointment for the results next week. Copy Copies To 1: CLYDE MCGRATH DO; ZULEYMA MARIE MD FACP FAC CCDS JULIANA CARMONA APRN Jul 31, 2018 22:40 KEREN HAWK Jul 31, 2018 23:25
[2018-07-31] MEDS ORDERED: ASPIRIN 81 MG CHEW (CHILDREN'S ASA) PO ONE (22:45)
[2018-07-31] MEDS ORDERED: NITROGLYCERIN 0.4 MG SL TABS BTL 25'S SL PRN (22:45)
[2018-07-31 22:58] LABS: BASOPHILS % (AUTO) 0 % (0-10); EOSINOPHILS # (AUTO) 0.1 10^3/uL (0.0-0.3); EOSINOPHILS % (AUTO) 1 % (0-10); HEMATOCRIT 43 % (40-54); HEMOGLOBIN 14.5 G/DL (13.3-17.7); LYMPHOCYTES # (AUTO) 2.9 X 10^3 (1.0-4.0); LYMPHOCYTES % (AUTO) 45 % (12-44); MEAN CORPUSCULAR HEMOGLOBIN 30 PG (25-34); MEAN CORPUSCULAR HGB CONC 33 G/DL (32-36); MEAN CORPUSCULAR VOLUME 88 FL (80-99); MEAN PLATELET VOLUME 9.1 FL (7.4-10.4); MONOCYTES # (AUTO) 0.5 X 10^3 (0.0-1.0); MONOCYTES % (AUTO) 7 % (0-12); NEUTROPHILS % (AUTO) 47 % (42-75); PLATELET COUNT 314 10^3/uL (130-400); RED BLOOD COUNT 4.91 10^6/uL (4.35-5.85); RED CELL DISTRIBUTION WIDTH 14.5 % (10.0-14.5); WHITE BLOOD COUNT 6.4 10^3/uL (4.3-11.0)
[2018-07-31 23:13] LABS: PROTHROMBIN TIME PATIENT 13.1 SEC (12.2-14.7)
[2018-07-31 23:21] LABS: ALANINE AMINOTRANSFERASE 20 U/L (0-55); ALBUMIN 4.4 GM/DL (3.2-4.5); ALKALINE PHOSPHATASE 72 U/L (40-136); BILIRUBIN,TOTAL 0.6 MG/DL (0.1-1.0); BUN/CREATININE RATIO 7; CALCIUM 10.1 MG/DL (8.5-10.1); CARBON DIOXIDE 27 MMOL/L (21-32); CHLORIDE 108 MMOL/L (98-107); CREATININE SERUM 1.25 MG/DL (0.60-1.30); GFR ESTIMATED > 60; GLUCOSE 103 MG/DL (70-105); LIPASE 18 U/L (8-78); MAGNESIUM 2.6 MG/DL (1.8-2.4); POTASSIUM 3.7 MMOL/L (3.6-5.0); SODIUM 145 MMOL/L (135-145); TOTAL PROTEIN 7.6 GM/DL (6.4-8.2)
[2018-07-31 23:28] LABS: MYOGLOBIN SERUM 65.6 NG/ML (10.0-92.0)
[2018-08-01 00:07] VITALS: BP 138/91
--- NOTE | 2018-08-01 06:47 | Diagnostic Imaging Report ---
INDICATION: Chest pain. COMPARISON: CT chest from 10/25/2017. FINDINGS: Portable chest show the lungs to be well-aerated and clear. The heart is upper limits of normal. There is no evidence of pulmonary edema. No hilar adenopathy. No pneumothorax or pleural effusion. No bony abnormalities. IMPRESSION: Normal portable chest. Dictated by: Dictated on workstation # [id number]
== END 2018-08-01 00:19 | disposition home or self-care (01) ==
LOC: EDUNIT# 22:28 → ER 22:29
DX: R07.89 Other chest pain (principal); I10 Essential (primary) hypertension; I25.10 Atherosclerotic heart disease of native coronary artery without angina pectoris; G40.909 Epilepsy, unspecified, not intractable, without status epilepticus; F41.9 Anxiety disorder, unspecified; F20.9 Schizophrenia, unspecified; F32.9 Major depressive disorder, single episode, unspecified; Z91.5 Personal history of self-harm; Z79.82 Long term (current) use of aspirin; Z79.02 Long term (current) use of antithrombotics/antiplatelets; Z87.891 Personal history of nicotine dependence; Z87.448 Personal history of other diseases of urinary system
CPT/HCPCS: 36415; 71045; 80053; 83690; 83735; 83874; 83880; 84484; 85025; 85610; 85730; 93005; 93041

== ENCOUNTER → 2018-11-18 | Outpatient (CLI) | payer MEDICARE, MEDICAID ==
[~2018-11-18] VITALS: Ht 175.3 cm; Wt 112.0 kg
[~2018-11-18] MED LIST changes: +CATHETER FLUSH 10 ML SYR IV PRN
[2018-11-18 07:26] LABS: BASOPHILS % (AUTO) 1 % (0-10); EOSINOPHILS # (AUTO) 0.1 10^3/uL (0.0-0.3); EOSINOPHILS % (AUTO) 2 % (0-10); HEMATOCRIT 42 % (40-54); LYMPHOCYTES # (AUTO) 2.4 X 10^3 (1.0-4.0); LYMPHOCYTES % (AUTO) 44 % (12-44); MEAN CORPUSCULAR HEMOGLOBIN 29 PG (25-34); MEAN CORPUSCULAR HGB CONC 33 G/DL (32-36); MEAN CORPUSCULAR VOLUME 86 FL (80-99); MEAN PLATELET VOLUME 9.3 FL (7.4-10.4); MONOCYTES # (AUTO) 0.5 X 10^3 (0.0-1.0); MONOCYTES % (AUTO) 9 % (0-12); NEUTROPHILS # (AUTO) 2.3 X 10^3 (1.8-7.8); NEUTROPHILS % (AUTO) 44 % (42-75); PLATELET COUNT 269 10^3/uL (130-400); RED CELL DISTRIBUTION WIDTH 13.6 % (10.0-14.5); WHITE BLOOD COUNT 5.3 10^3/uL (4.3-11.0)
[2018-11-18 07:45] LABS: ALANINE AMINOTRANSFERASE 24 U/L (0-55); ALBUMIN 4.1 GM/DL (3.2-4.5); ALKALINE PHOSPHATASE 66 U/L (40-136); BILIRUBIN,TOTAL 0.8 MG/DL (0.1-1.0); BUN/CREATININE RATIO 7; CALCIUM 9.3 MG/DL (8.5-10.1); CARBON DIOXIDE 25 MMOL/L (21-32); CHLORIDE 107 MMOL/L (98-107); CHOLESTEROL 182 MG/DL (< 200); CREATININE SERUM 1.17 MG/DL (0.60-1.30); GFR ESTIMATED > 60; GLUCOSE 111 MG/DL (70-105); HDL CHOLESTEROL 45 MG/DL (40-60); POTASSIUM 3.4 MMOL/L (3.6-5.0); SODIUM 142 MMOL/L (135-145); TOTAL PROTEIN 6.9 GM/DL (6.4-8.2); TRIGLYCERIDES 134 MG/DL (<150); VLDL CHOLESTEROL 27 MG/DL (5-40)
[2018-11-18 07:52] LABS: ERYTHROCYTE SEDIMENTATION RATE 4 MM/HR (0-15)
--- NOTE | 2018-11-20 15:01 | STRESS TEST ---
DATE OF SERVICE: 11/18/2018 RESTING AND POST EXERCISE TECHNETIUM-99M TETROFOSMIN SPECT CT IMAGING ORDERING PHYSICIAN: Dr. Marie. PRIMARY PHYSICIAN: Dr. Montero. CLINICAL DIAGNOSES: Coronary artery disease, chest discomfort. Baseline images were carried out after injection of 10.06 mCi technetium-99m Tetrofosmin. This was followed by exercise on a treadmill. Lenny protocol was employed. Heart rate response to exercise was normal. Blood pressure response to exercise was somewhat hypertensive. There did not appear to be significant ST segment deviation with exercise. The patient exercised for a total of 8 minutes and 9 seconds. He attained 9.7 METS of workload and 90% of maximum predicted heart rate. The test was stopped on account of fatigue. After he had attained 85% of maximum predicted heart rate, 29.3 mCi of technetium-99m Tetrofosmin were injected and the exercise was continued for another minute. Review of images at rest and following stress does not indicate any distinct perfusion defects consistent with significant myocardial ischemia or infarction. Gated images show normal global left ventricular systolic function with normal regional wall motion. Left ventricular ejection fraction is calculated to be 62%. Left ventricular end diastolic volume is 121 mL. TID is absent (1.07). CONCLUSIONS: 1. No evidence of significant myocardial ischemia or infarction on this study. 2. Normal regional wall motion. 3. Normal global left ventricular systolic function with a calculated ejection fraction of 62%. 4. Mild cardiomegaly. Job ID: [id number] DocumentID: [id number] Dictated Date: 11/20/2018 14:35:01 Prison Teacher Date: 11/20/2018 15:00:45 Dictated By: ZULEYMA MARIE MD, MA, FACP, FACC,
== END ==
LOC: CARD 07:13
PROVIDERS: ATTEND Internal Medicine Cardiovascular Disease
DX: I25.10 Atherosclerotic heart disease of native coronary artery without angina pectoris (principal); R07.89 Other chest pain; I10 Essential (primary) hypertension; E78.5 Hyperlipidemia, unspecified
CPT/HCPCS: 36415; 78452; 80053; 80061; 85025; 85652; 93017

== ENCOUNTER 2019-02-03 05:41 | Outpatient (CLI) | payer MEDICARE, MEDICAID ==
[~2019-02-03] VITALS: Ht 175.3 cm; Wt 107.5 kg
[~2019-02-03 05:41] MED LIST changes: -CATHETER FLUSH 10 ML SYR IV PRN
== END 2019-02-03 13:21 | disposition home or self-care (01) ==
LOC: PREOP 05:41
PROVIDERS: ATTEND Surgery
DX: Z01.818 Encounter for other preprocedural examination (principal)

== ENCOUNTER 2019-02-17 13:56 | Day surgery (SDC) | payer MEDICARE, MEDICAID ==
[~2019-02-17] VITALS: Ht 175.3 cm; Wt 107.5 kg
[2019-02-17] MEDS ORDERED: LACTATED RINGERS 1,000 ML IV ONE (13:57)
--- OUTSIDE RECORDS SUMMARY | 2019-02-17 13:58 | XMS REPORT ---
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 Active 17924082 Problem Schizophrenia, unspecified type F20.9 Active 12555050 Problem Left knee pain M25.562 Active 636197525 Problem Constipation, unspecified constipation type K59.00 Active 36922321 Problem Pulmonary nodules R91.8 Active 836153387 Problem Lumbar radiculopathy M54.16 Active 234024469 Problem Coronary artery disease involving telida coronary artery of telida heart without angina pectoris I25.10 Active 6378097123909 Problem Seasonal allergies J30.2 Active 728851943 ALLERGIES No Information ENCOUNTERS Encounter Location Date Diagnosis [place] [id number] [place] [address] Jan, [facility] [address] [address] December, Lumbar radiculopathy M54.16 and Rectal bleeding K62.5 [facility] [id number] [place] [address] Nov, Lumbar radiculopathy M54.16 [facility] [id number] [place] [address] Nov, Constipation, unspecified constipation type K59.00 and Hematuria, unspecified type R31.9 [facility] [id number] [place] [address] 15 Sep, 2018 Lumbar radiculopathy M54.16 and Left knee pain M25.562 [facility] [address] [address] Aug, Lumbar radiculopathy M54.16 [place] [id number] [place] [address] Jul, Coronary artery disease involving telida coronary artery of telida heart without angina pectoris I25.10 [place] [id number] [place] [address] Jul, [place] [id number] [place] [address] Jun, Closed fracture of right wrist, initial encounter S62.101A [place] [address] [address] May, Closed fracture of right wrist, initial encounter S62.101A [place] [id number] [place] [address] May, Lumbar radiculopathy M54.16 and Seasonal allergies J30.2 [place] [id number] [place] [address] Mar, Lumbar radiculopathy M54.16 and Coronary artery disease involving telida coronary artery of telida heart without angina pectoris I25.10 [place] [address] [place] [address] Feb, Other chest pain R07.89 and Lumbar radiculopathy M54.16 [place] [id number] [place] [address] Jan, Radiculopathy of lumbar region M54.16 [place] [id number] [place] [address] Jan, [place] [id number] [place] [address] Jan, Radiculopathy of lumbar region M54.16 [place] [id number] [place] [address] Jan, [facility] [id number] [place] [address] Jan, Lumbar radiculopathy M54.16 [facility] [id number] [place] [address] Nov, Lumbar radiculopathy M54.16 [facility] [address] [address] Oct, 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 [id number] [place] [address] Sep, Lumbar back pain M54.5 [facility] [id number] [place] [address] Sep, [facility] [address] [address] Sep, Pulmonary nodules/lesions, multiple R91.8 [facility] [id number] [place] [address] Aug, [facility] [id number] [place] [address] Aug, Lumbar back pain M54.5 [facility] [id number] [place] [address] Jul, [facility] [address] [address] Jul, [facility] [id number] [place] [address] Jul, Lumbar back pain M54.5 [facility] [id number] [place] [address] Jul, Pulmonary nodules/lesions, multiple R91.8 [facility] [id number] [place] [address] Jun, Pulmonary nodules/lesions, multiple R91.8 [facility] [id number] [place] [address] Jun, [facility] [address] [address] December, [facility] [id number] [place] [address] Jan, Migraine without status migrainosus, not intractable, unspecified migraine type G43.909 [facility] [id number] [place] [address] December, [facility] [id number] [place] [address] December, Right groin pain R10.30 and Generalized headaches R51 [facility] [id number] [place] [address] Nov, [facility] [id number] [place] [address] Nov, [facility] [id number] [place] [address] Aug, Right hand fracture, closed, initial encounter S62.91XA ; Cough R05 and High blood pressure (not hypertension) R03.0 [facility] [id number] [place] [address] Apr, [facility] [id number] [place] [address] Mar, [facility] [id number] [place] [address] Feb, Tinea corporis 110.5 [place] [id number] [facility] [id number] [address] 14 Nov, 2014 [facility] [id number] [address] Nov, [facility] [address] [address] Apr, [facility] [id number] [address] Apr, [facility] [id number] [address] Jan, [facility] [id number] [address] December, IMMUNIZATIONS No Known Immunizations SOCIAL HISTORY Never Assessed [place] [place] VITAL SIGNS MEDICATIONS Unknown [...] Surgical History heart stent 03/2018 Hospitalization History [facility] ED- Back pain 11/19/2017 Hospitalization History [facility] heart stents 03/2018
--- OUTSIDE RECORDS SUMMARY | 2019-02-17 13:59 | XMS REPORT ---
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 Active 65788671 Problem Lumbar radiculopathy M54.16 Active 794575191 Problem Pulmonary nodules R91.8 Active 339935436 Problem Schizophrenia, unspecified type F20.9 Active 07245905 ALLERGIES No Information ENCOUNTERS Encounter Location Date Diagnosis [place] [address] [address] Jul, Coronary artery disease involving [place] coronary artery of [place] heart without angina pectoris I25.10 [place] [address] [place] [id number] [place] [address] Jul, [place] [address] [place] [id number] [place] [address] Jun, Closed fracture of right wrist, initial encounter S62.101A [place] [address] [place] [id number] [place] [address] May, Closed fracture of right wrist, initial encounter S62.101A [place] [address] [address] May, Lumbar radiculopathy M54.16 and Seasonal allergies J30.2 [place] [address] [place] [id number] [place] [address] Mar, Lumbar radiculopathy M54.16 and Coronary artery disease involving [place] coronary artery of [place] heart without angina pectoris I25.10 [place] [address] [address] Feb, Other chest pain R07.89 and Lumbar radiculopathy M54.16 [place] [address] [address] Jan, Radiculopathy of lumbar region M54.16 [place] [address] [address] Jan, [place] [address] [address] Jan, Radiculopathy of lumbar region M54.16 [place] [address] [address] Jan, [place] [address] [address] Jan, Lumbar radiculopathy M54.16 [place] [address] [address] Nov, Lumbar radiculopathy M54.16 [place] [address] [address] Oct, [facility] [address] [address] Oct, Pulmonary nodules R91.8 ; Lumbar radiculopathy M54.16 ; Generalized idiopathic epilepsy and epileptic syndromes, without status epilepticus, 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 and Schizophrenia, unspecified type F20.9 [facility] [address] [address] 13 Sep, 2017 Lumbar back pain M54.5 [place] [address] [address] Sep, [facility] [address] [place] [address] Sep, Pulmonary nodules/lesions, multiple R91.8 [facility] [address] [place] [id number] [place] [address] Aug, [facility] [address] [place] [id number] [place] [address] Aug, Lumbar back pain M54.5 [facility] [address] [place] [id number] [place] [address] Jul, [facility] [address] [place] [id number] [place] [address] Jul, [facility] [address] [place] [id number] [place] [address] Jul, Lumbar back pain M54.5 [facility] [address] [place] [id number] [place] [address] Jul, Pulmonary nodules/lesions, multiple R91.8 [facility] [address] [place] [id number] [place] [address] Jun, Pulmonary nodules/lesions, multiple R91.8 [facility] [address] [place] [id number] [place] [address] Jun, [facility] [address] [place] [id number] [place] [address] December, [facility] [address] [place] [id number] [place] [address] Jan, Migraine without status migrainosus, not intractable, unspecified migraine type G43.909 [facility] [address] [place] [id number] [place] [address] December, [facility] [address] [place] [id number] [place] [address] December, Right groin pain R10.30 and Generalized headaches R51 [facility] [address] [address] Nov, [facility] [address] [place] [id number] [place] [address] Nov, [facility] [address] [address] Aug, Right hand fracture, closed, initial encounter S62.91XA ; Cough R05 and High blood pressure (not hypertension) R03.0 [facility] [address] [address] Apr, [facility] [address] [place] [id number] [place] [address] Mar, [facility] [address] [place] [id number] [place] [address] Feb, Tinea corporis 110.5 [facility] [address] [place] [id number] [place] [address] Nov, [facility] [address] [place] [id number] [place] [address] Nov, [facility] [address] [place] [id number] [place] [address] Apr, [facility] [address] [address] Apr, [facility] [address] [address] Jan, [facility] [address] [address] December, IMMUNIZATIONS No Known Immunizations SOCIAL HISTORY Never Assessed REASON FOR VISIT Medication refill request PLAN OF CARE VITAL SIGNS MEDICATIONS Medication Instructions Dosage Frequency Start Date End Date Duration Status Ibuprofen 800 MG Orally Three times a day 1 tablet with food or milk as needed 8h Jul, 30 days Active RESULTS No Results PROCEDURES No Known procedures INSTRUCTIONS MEDICATIONS ADMINISTERED No Known Medications MEDICAL (GENERAL) HISTORY Type Description Date Medical History Hypertension Medical History Anxiety/Sleep Issues Medical History Tumer on Lung 06/2017 Medical History heart stent 03/2018 Medical History 06/07/18 rt wrist broken Surgical History pins in left foot Surgical History heart stent 03/2018 Hospitalization History [facility] [place] [facility] ED- Back pain 11/19/2017 [facility] heart stents 03/2018
--- OUTSIDE RECORDS SUMMARY | 2019-02-17 13:59 | XMS REPORT ---
Author Author GUERDA RO Organization [facility] Address [address] [place] [address] Care Team Providers Care Social Work Faculty Member Name Role Phone GUERDA RO Unavailable PROBLEMS Type Condition ICD9-CM Code DKO47-BL Code Onset Dates Condition Status SNOMED Code Problem Seasonal allergies J30.2 Active 128706906 Problem Coronary artery disease involving [place] coronary artery of [place] heart without angina pectoris I25.10 Active 8751694113794 Problem Generalized idiopathic epilepsy and epileptic syndromes, without status epilepticus, 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 Active 43970796 Problem Lumbar radiculopathy M54.16 Active 844134960 Problem Pulmonary nodules R91.8 Active 072985170 Problem Schizophrenia, unspecified type F20.9 Active 37522731 ALLERGIES No Known Allergies ENCOUNTERS Encounter Location Date Diagnosis [place] [address] [address] Jul, Coronary artery disease involving [place] coronary artery of [place] heart without angina pectoris I25.10 [place] [address] [place] [id number] [place] [address] Jul, [place] [address] [place] [id number] [place] [address] Jun, Closed fracture of right wrist, initial encounter S62.101A [place] [address] [place] [id number] [place] [address] May, Closed fracture of right wrist, initial encounter S62.101A [place] [address] [place] [id number] [place] [address] May, Lumbar radiculopathy M54.16 and Seasonal allergies J30.2 [place] [address] [place] [id number] [place] [address] Mar, Lumbar radiculopathy M54.16 and Coronary artery disease involving [place] coronary artery of [place] heart without angina pectoris I25.10 [facility] [address] [place] [id number] [place] [address] Feb, Other chest pain R07.89 and Lumbar radiculopathy M54.16 [place] [address] [address] Jan, Radiculopathy of lumbar region M54.16 [facility] [address] [address] Jan, [facility] [address] [address] Jan, Radiculopathy of lumbar region M54.16 [place] [address] [address] Jan, [facility] [address] [address] Jan, Lumbar radiculopathy M54.16 [place] [address] [address] Nov, Lumbar radiculopathy M54.16 [facility] [address] [place] [id number] [place] [address] Oct, [facility] [address] [address] Oct, Pulmonary nodules R91.8 ; Lumbar radiculopathy M54.16 ; Generalized idiopathic epilepsy and epileptic syndromes, without status epilepticus, 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 and Schizophrenia, unspecified type F20.9 [facility] [address] [place] [id number] [place] [address] 13 Sep, 2017 Lumbar back pain M54.5 [facility] [address] [address] Sep, [facility] [address] [address] Sep, Pulmonary nodules/lesions, multiple R91.8 [facility] [address] [place] [address] Aug, [facility] [address] [place] [id number] [place] [address] Aug, Lumbar back pain M54.5 [facility] [address] [place] [id number] [place] [address] Jul, [facility] [address] [place] [id number] [place] [address] Jul, [facility] [address] [place] [id number] [place] [address] Jul, Lumbar back pain M54.5 [facility] [address] [place] [id number] [place] [address] Jul, Pulmonary nodules/lesions, multiple R91.8 [facility] [address] [place] [id number] [place] [address] Jun, Pulmonary nodules/lesions, multiple R91.8 [facility] [address] [place] [address] Jun, [facility] [address] [place] [id number] [place] [address] December, [facility] [address] [place] [id number] [place] [address] Jan, Migraine without status migrainosus, not intractable, unspecified migraine type G43.909 [facility] [address] [place] [id number] [place] [address] December, [facility] [address] [place] [id number] [place] [address] December, Right groin pain R10.30 and Generalized headaches R51 [facility] [address] [address] Nov, [facility] [address] [place] [id number] [place] [address] Nov, [facility] [address] [address] Aug, Right hand fracture, closed, initial encounter S62.91XA ; Cough R05 and High blood pressure (not hypertension) R03.0 [facility] [address] [address] 10 Apr, 2015 [facility] [address] [place] [id number] [place] [address] Mar, [facility] [address] [place] [id number] [place] [address] Feb, Tinea corporis 110.5 [facility] [address] [place] [id number] [place] [address] Nov, [facility] [address] [address] Nov, [facility] [address] [place] [address] [address] Apr, [facility] [address] [address] Apr, [facility] [address] [address] Jan, [facility] [address] [place] [id number] [address] December, IMMUNIZATIONS No Known Immunizations SOCIAL HISTORY Never Assessed REASON FOR VISIT ED follow up/chest and back pain-maudeRMA, pt denies any issues PLAN OF CARE Activity Details Follow Up 3 Months Reason: VITAL SIGNS Height 69 in 2018-08-01 Weight 236.9 lbs 2018-08-01 Temperature 98.3 degrees Fahrenheit 2018-08-01 Heart Rate 78 bpm 2018-08-01 Respiratory Rate 20 2018-08-01 Oximetry on room air:98 % 2018-08-01 BMI 34.98 kg/m2 2018-08-01 Blood pressure systolic 124 mmHg 2018-08-01 Blood pressure diastolic 76 mmHg 2018-08-01 MEDICATIONS Medication Instructions Dosage Frequency Start Date End Date Duration Status Atorvastatin Calcium 80 MG Orally Once a day 1 tablet 24h Active Amitriptyline HCl 25 MG Orally at bedtime 2-3 tablets Active Orphenadrine Citrate ER 100 MG Orally Once a day 1 tablet at bedtime 24h Active Percocet 7.5-325 MG Orally every 6 hrs 1 tablet as needed 6h Jun, 10 days Active Zyprexa 20 MG Orally Once a day 1 tablet 24h Active Loxapine Succinate 50 MG Orally Once a day 1 capsule 24h Active ASA 1 tab Active Toprol XL 25MG Orally Once a day 1 tablet 24h Active Depakote 500 MG Orally Once a day 2 tablets 24h Active Paroxetine HCl 20 MG Orally Once a day 1 tablet in the morning 24h Active Clopidogrel Bisulfate 75 MG Orally Once a day 1 tablet 24h Active RESULTS No Results PROCEDURES Procedure Date Ordered Result Body Site [facility] VISIT ESTABLISHED PATIENT Aug 01, 2018 INSTRUCTIONS MEDICATIONS ADMINISTERED No Known Medications MEDICAL (GENERAL) HISTORY Type Description Date Medical History Hypertension Medical History Anxiety/Sleep Issues Medical History Tumer on Lung 06/2017 Medical History heart stent 03/2018 Medical History 06/07/18 rt wrist broken Surgical History pins in left foot Surgical History heart stent 03/2018 Hospitalization History [facility]- Back pain 11/19/2017 [facility] heart stents 03/2018
--- OUTSIDE RECORDS SUMMARY | 2019-02-17 13:59 | XMS REPORT ---
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 Active 10606025 Problem Schizophrenia, unspecified type F20.9 Active 68664615 Problem Pulmonary nodules R91.8 Active 911810423 Problem Coronary artery disease involving [place] coronary artery of [place] heart without angina pectoris I25.10 Active [id number] ALLERGIES No Information ENCOUNTERS Encounter Location Date Diagnosis [place] [address] [place] [address] Sep, Lumbar radiculopathy M54.16 and Left knee pain M25.562 [place] [address] [place] [address] Aug, Lumbar radiculopathy M54.16 [place] [address] [place] [address] Jul, Coronary artery disease involving [place] coronary artery of [place] heart without angina pectoris I25.10 [place] [address] [address] Jul, [place] [address] [place] [id number] [place] [address] Jun, Closed fracture of right wrist, initial encounter S62.101A [place] [address] [place] [id number] [place] [address] May, Closed fracture of right wrist, initial encounter S62.101A [place] [address] [place] [id number] [place] [address] 12 May, 2018 Lumbar radiculopathy M54.16 and Seasonal allergies J30.2 [place] [address] [address] Mar, Lumbar radiculopathy M54.16 and Coronary artery disease involving [place] coronary artery of [place] heart without angina pectoris I25.10 [place] [address] [address] Feb, Other chest pain R07.89 and Lumbar radiculopathy M54.16 [place] [address] [address] Jan, Radiculopathy of lumbar region M54.16 [place] [address] [address] Jan, [place] [address] [address] Jan, Radiculopathy of lumbar region M54.16 [place] [address] [address] Jan, [place] [address] [address] Jan, Lumbar radiculopathy M54.16 [place] [address] [address] Nov, Lumbar radiculopathy M54.16 [place] [address] [address] Oct, [place] [address] [address] Oct, Pulmonary nodules R91.8 ; Lumbar radiculopathy M54.16 ; Generalized idiopathic epilepsy and epileptic syndromes, without status epilepticus, 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 and Schizophrenia, unspecified type F20.9 [facility] [address] [place] [id number] [place] [address] Sep, Lumbar back pain M54.5 [facility] [address] [place] [id number] [place] [address] Sep, [facility] [address] [place] [id number] [place] [address] Sep, Pulmonary nodules/lesions, multiple R91.8 [facility] [address] [place] [id number] [place] [address] Aug, [facility] [address] [place] [id number] [place] [address] Aug, Lumbar back pain M54.5 [facility] [address] [place] [id number] [place] [address] Jul, [facility] [address] [place] [id number] [place] [address] Jul, [facility] [address] [place] [id number] [place] [address] Jul, Lumbar back pain M54.5 [facility] [address] [place] [id number] [place] [address] Jul, Pulmonary nodules/lesions, multiple R91.8 [facility] [address] [place] [id number] [place] [address] Jun, Pulmonary nodules/lesions, multiple R91.8 [facility] [address] [place] [address] Jun, [facility] [address] [place] [id number] [place] [address] December, [facility] [address] [place] [address] Jan, Migraine without status migrainosus, not intractable, unspecified migraine type G43.909 [facility] [address] [place] [id number] [place] [address] December, [facility] [address] [place] [id number] [place] [address] December, Right groin pain R10.30 and Generalized headaches R51 [facility] [address] [place] [id number] [place] [address] Nov, [facility] [address] [place] [id number] [place] [address] Nov, [facility] [address] [place] [id number] [place] [address] Aug, Right hand fracture, closed, initial encounter S62.91XA ; Cough R05 and High blood pressure (not hypertension) R03.0 [facility] [address] [place] [id number] [place] [address] Apr, [facility] [address] [place] [id number] [place] [address] Mar, [facility] [address] [place] [id number] [place] [address] Feb, Tinea corporis 110.5 [facility] [address] [place] [id number] [place] [address] 14 Nov, 2014 [facility] [address] [place] [id number] [place] [address] Nov, [facility] [address] [place] [id number] [place] [address] Apr, [facility] [address] [place] [id number] [place] [address] Apr, [facility] [address] [place] [id number] [place] [address] Jan, [facility] [address] [place] [id number] [place] [address] December, IMMUNIZATIONS No Known Immunizations SOCIAL HISTORY Never Assessed REASON FOR VISIT [facility] [place] CARE VITAL SIGNS MEDICATIONS Medication Instructions Dosage Frequency Start Date End Date Duration Status Zithromax Z-Mohit 250 mg 2 tablet by Oral route 1 time per day then take 1 tab daily on days 2-5 Apr, Active Hydrocodone-Acetaminophen 5-325 mg take 1 tablet by oral route every 4 hours as needed for pain December, Active cyclobenzaprine 10 mg take 1 tablet (10 mg) by oral route 2 times per day December, Active PredniSONE 20 mg take 2 tablets (40 mg) by oral route once daily December, Active Levofloxacin 500 mg take 1 tablet (500 mg) by oral route once daily for 28 days December, Active RESULTS No Results PROCEDURES No Known procedures INSTRUCTIONS MEDICATIONS ADMINISTERED No Known Medications MEDICAL (GENERAL) HISTORY Type Description Date Medical History Hypertension Medical History Anxiety/Sleep Issues Medical History Tumer on Lung 06/2017 Medical History heart stent 03/2018 Medical History 06/07/18 rt wrist broken Surgical History pins in left foot Surgical History heart stent 03/2018 Hospitalization History [facility] ED- Back pain 11/19/2017 [facility] heart st[facility] 03/2018
[2019-02-17 14:00] VITALS: BP 140/90
--- OUTSIDE RECORDS SUMMARY | 2019-02-17 14:04 | XMS REPORT | Continuity of Care Document ---
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 JULIANA CARMONA APRN [facility] ER RT HAND LAC [id number] 12/15/2012 10:19:00 12/15/2012 14:10:00 DIS Emergency NED TRIPP [facility] ER RT ARM PAIN, CHEST DISCOMFORT
[2019-02-17] MEDS ORDERED: LACTATED RINGERS 1,000 ML IV STA (14:05)
[2019-02-17] MEDS ORDERED: MIDAZOLAM 2 MG/2 ML (VERSED) VIAL ONE ×2 (14:52→15:10)
[2019-02-17] MEDS ORDERED: fentaNYL INJECTION 100 MCG/2 ML AMP ONE (14:52)
[2019-02-17] MEDS ORDERED: proPOfol 200 MG/20 ML (DIPRIVAN) VIAL IV ONE ×2 (14:52→15:31)
--- NOTE | 2019-02-17 15:15 | Progress Note-Pre Operative ---
Pre-Operative Progress Note H&P Reviewed The H&P was reviewed, patient examined and no changes noted. Date Seen by Provider: Feb 17, 2019 Time Seen by Provider: 15:14 Date H&P Reviewed: Feb 17, 2019 Time H&P Reviewed: 15:14 Pre-Operative Diagnosis: bright red blood per rectum LANDON GUTIERREZ DO Feb 17, 2019 15:15
--- NOTE | 2019-02-17 15:55 | Progress Note-Post Operative ---
Post-Operative Progess Note Surgeon (s)/Coal Grader (s) Surgeon LANDON GUTIERREZ DO Coal Grader: na Pre-Operative Diagnosis bright red blood per rectum Post-Operative Diagnosis colon polyps Procedure & Operative Findings Date of Procedure 02/17/19 Procedure Performed/Findings colonoscopy c hot bx polypectomy x 4 and snare polypectomy x 2 Anesthesia Type per scanning tech Estimated Blood Loss Estimated blood loss (mL): none Specimens/Packing Specimens Removed colon polyps LANDON GUTIERREZ DO Feb 17, 2019 15:55
--- NOTE | 2019-02-17 15:57 | Discharge Inst-Simple/Standard ---
Discharge Inst-Standard Patient Instructions/Follow Up Plan of Care/Instructions/FU: 2 weeks Radha Restart plavix and aspirin in 3 days. Activity as Tolerated: Yes Discharge Diet: Regular Diet LANDON GUTIERREZ DO Feb 17, 2019 15:56
[2019-02-17 16:00] VITALS: BP 135/93
[2019-02-17 16:28] VITALS: BP 132/82
--- NOTE | 2019-02-17 16:37 | Anesthesia-General Post-Op ---
MAC Patient Condition Mental Status/LOC: Same as Preop Cardiovascular: Satisfactory Nausea/Vomiting: Absent Respiratory: Satisfactory Pain: Controlled Complications: Absent Post Op Complications Complications None Follow Up Care/Instructions Patient Instructions None needed. Anesthesiology Discharge Order Discharge Order Patient is doing well, no complaints, stable vital signs, no apparent adverse anesthesia problems. No complications reported per nursing. RICHMOND BARRIOS CRNA Feb 17, 2019 16:37
--- NOTE | 2019-02-17 21:16 | OPERATIVE REPORT ---
DATE OF SERVICE: 02/17/2019 PREOPERATIVE DIAGNOSIS: Bright red blood per rectum. POSTOPERATIVE DIAGNOSIS: Colon polyps. PROCEDURE: Colonoscopy with hot biopsy polypectomy x4 and snare polypectomy x2. ANESTHESIA: Per BROADBAND TECHNICIAN. SURGEON: Landon Garcia DO ESTIMATED BLOOD LOSS: None. COMPLICATIONS: None. INDICATIONS: The patient is a 48-year-old male with bright red blood per rectum. He understands risks and benefits of procedure and wished to proceed with procedure. Consent was signed in the chart. DESCRIPTION OF PROCEDURE: The patient was taken to the endoscopy suite, placed in left lateral recumbent position. Timeout was performed. Digital rectal exam was performed. There were no palpable polyps, masses or ulcerations. The scope was inserted in the rectum and advanced all the way to the cecum with minimal difficulty. Prep was adequate. Scope was slowly retracted back. There were no polyps, masses or ulcerations in the cecum. In ascending colon, a small polyp was present, which hot biopsy polypectomy was performed. Scope was continued to be slowly retracted back. There were no other polyps, masses or ulcerations in the ascending colon. In the transverse colon, there was another small polyp was present, which hot biopsy polypectomy was performed. Scope was then continued to be slowly retracted back through the splenic flexure where a small polyp was present, which hot biopsy polypectomy was performed. Two large greater than 1 cm polyps were present, which snare polypectomy was performed. These were unable to be suctioned through the scope, so they were brought out one at a time with suction. Scope was reinserted into the area. These were removed. No other pathology noted. Scope was then continued to be slowly retracted back. No polyps, masses or ulcerations within the descending colon; a small polyp in the sigmoid colon, which hot biopsy polypectomy was performed. Scope was then continued to be slowly retracted back until the rectum, where it was also retroflexed noting no other pathology. Scope was returned to its normal position, slowly withdrawn until completely removed. The patient tolerated procedure well without any complications, was taken to recovery room in stable condition. RECOMMENDATIONS: The patient will have a followup in the office in 2 weeks. We will repeat colonoscopy in one year. Job ID: [id number] DocumentID: [id number] Dictated Date: 02/17/2019 15:59:24 Candy Maker Helper Date: 02/17/2019 21:15:42 Dictated By: LANDON GARCIA DO
== END 2019-02-17 16:30 | disposition home or self-care (01) ==
LOC: ENDO 13:56
PROVIDERS: ATTEND Surgery
DX: K62.5 Hemorrhage of anus and rectum (principal); D12.2 Benign neoplasm of ascending colon; D12.3 Benign neoplasm of transverse colon; D12.5 Benign neoplasm of sigmoid colon; K63.5 Polyp of colon; I25.10 Atherosclerotic heart disease of native coronary artery without angina pectoris; I10 Essential (primary) hypertension; R56.9 Unspecified convulsions; K21.9 Gastro-esophageal reflux disease without esophagitis; G57.92 Unspecified mononeuropathy of left lower limb; F20.9 Schizophrenia, unspecified; E66.01 Morbid (severe) obesity due to excess calories; Z68.34 Body mass index [BMI] 34.0-34.9, adult; Z79.02 Long term (current) use of antithrombotics/antiplatelets; Z79.82 Long term (current) use of aspirin; Z79.899 Other long term (current) drug therapy; Z87.891 Personal history of nicotine dependence
CPT/HCPCS: 88305

== ENCOUNTER 2019-03-31 18:56 | Emergency (ER) | payer MEDICARE, MEDICAID ==
[~2019-03-31] VITALS: Ht 175.3 cm; Wt 104.8 kg
--- NOTE | 2019-03-31 19:39 | ED Upper Extremity ---
General Chief Complaint: Upper Extremity Stated Complaint: R HAND PAIN,SWOLLEN Source: patient History of Present Illness Date Seen by Provider: Mar 31, 2019 Time Seen by Provider: 19:37 Initial Comments The patient is a 23-asuk-rmx-male who presents with complaint of pain in the MP joints of the right second and third fingers. He reports that he punched the wall in a fit of anger a few hours before arrival. He also reports that a number of years ago he suffered a boxer's fracture from a similar wall punch and more recently a fractured wrist from a wall punch. Onset: just prior to arrival Severity: mild Pain/Injury Location: right 2nd finger, right 3rd finger Method of Injury: direct blow Allergies and Home Medications Allergies Coded Allergies: No Known Drug Allergies (Unverified , 02/03/19) Home Medications Amitriptyline HCl 25 Mg Tablet, 50-75 MG PO HS, (Reported) Aspirin 81 Mg Tab.chew, 81 MG PO DAILY Prescribed by: SHWETA RICHARDS on 03/05/18926 Atorvastatin Calcium 80 Mg Tablet, 80 MG PO HS Prescribed by: SHWETA RICHARDS on 03/05/18926 Clopidogrel Bisulfate 75 Mg Tablet, 75 MG PO DAILY Prescribed by: SHWETA RICHARDS on 03/05/18926 Cyclobenzaprine HCl 10 Mg Tablet, 10 MG PO HS, (Reported) Loxapine Succinate 25 Mg Capsule, 25 MG PO HS, (Reported) Metoprolol Succinate 25 Mg Tab.er.24h, 25 MG PO DAILY, (Reported) Paroxetine HCl 20 Mg Tablet, 20 MG PO DAILY, (Reported) Patient Home Medication List Home Medication List Reviewed: Yes Review of Systems Constitutional: see HPI EENTM: no symptoms reported Respiratory: no symptoms reported Cardiovascular: no symptoms reported Gastrointestinal: no symptoms reported Genitourinary: no symptoms reported Musculoskeletal: see HPI Past Mlodljo-Vynaad-Pphovh Hx Patient Social History Alcohol Beverage of Choice: Beer Type Used: Cigarettes Former Smoker, Quit: Feb 03, 1989 2nd Hand Smoke Exposure: Yes Recent Foreign Travel: No Contact w/Someone Who Travel: No Recent Hopitalizations: No Seasonal Allergies Seasonal Allergies: Yes Past Medical History Surgeries: Yes (LT FOOT TRAUMA) Respiratory: No Cardiac: Yes (STENTS) High Cholesterol, Hypertension Neurological: Yes Neuropathy, Seizure Disorder Reproductive Disorders: No Sexually Transmitted Disease: No HIV/AIDS: No Genitourinary: No Gastrointestinal: No Musculoskeletal: Yes Chronic Back Pain Endocrine: No HEENT: Yes (GLASSES) Loss of Vision: Denies Hearing Impairment: Denies Cancer: No Psychosocial: Yes Anxiety, Suicide Attempts, Schizophrenia, Depression Integumentary: No Blood Disorders: No Adverse Reaction/Blood Tranf: No (N/A) Family Medical History No Pertinent Family Hx Physical Exam Vital Signs Capillary Refill : Height, Weight, BMI Height: 5'9.00" Weight: 237lbs. 0.0oz. 107.076660fr; 35.0 BMI Method:Estimated General Appearance: WD/WN, no apparent distress HEENT: normal ENT inspection Neck: full range of motion Cardiovascular: normal peripheral pulses, regular rate, rhythm, no edema, no gallop, no JVD, no murmur Respiratory: chest non-tender, lungs clear, normal breath sounds, no respiratory distress, no accessory muscle use There is swelling at the right second and third MP joints without obvious deformity. Procedures/Interventions Suture Size: 5-0 Progress/Results/Core Measures Results/Orders My Orders Orders - LUCY HUGO MD Hand, Right, 3 Views (03/31/19 19:36) Departure Impression Primary Impression: Contusion of hand Disposition: HOME, SELF-CARE Condition: Stable/Unchanged Departure-Patient Inst. Decision time for Depature: 20:21 Referrals: GUERDA RO MD (PCP/Family) Primary Care Physician Patient Instructions: Wrist Sprain (DC) Add. Discharge Instructions: All discharge instructions reviewed with patient and/or family. Voiced un derstanding. Use an ice pack intermittently tonight. Use Darius wrap as placed. Elevate hand over her elbow slightly in order to reduce swelling. LUCY HUGO MD Mar 31, 2019 19:39
--- NOTE | 2019-03-31 20:03 | Diagnostic Imaging Report ---
INDICATION: Punched a wall and right hand pain. Time of exam: 7:44 PM Distal radius and ulna appears intact. The carpus is intact. Metacarpals and phalanges appear to be intact. No acute fractures are seen. IMPRESSION: No acute bony abnormality is detected. Dictated by: Dictated on workstation # [id number]
[2019-03-31 20:50] VITALS: BP 146/90
== END 2019-03-31 20:50 | disposition home or self-care (01) ==
LOC: EDUNIT# 18:56 → ER 18:57
DX: S60.221A Contusion of right hand, initial encounter (principal); I10 Essential (primary) hypertension; E78.00 Pure hypercholesterolemia, unspecified; G40.909 Epilepsy, unspecified, not intractable, without status epilepticus; G62.9 Polyneuropathy, unspecified; F41.9 Anxiety disorder, unspecified; F20.9 Schizophrenia, unspecified; F32.9 Major depressive disorder, single episode, unspecified; Z79.82 Long term (current) use of aspirin; Z79.02 Long term (current) use of antithrombotics/antiplatelets; Z87.891 Personal history of nicotine dependence; W22.01XA Walked into wall, initial encounter
CPT/HCPCS: 73130

== ENCOUNTER 2019-05-26 07:56 | Day surgery (SDC) | payer MEDICARE, MEDICAID ==
[2019-05-26] VITALS (9 sets, daily range): BP systolic 129–167; BP diastolic 83–119
[~2019-05-26] VITALS: Ht 176 cm; Wt 110.5 kg
[2019-05-26] MEDS ORDERED: NS IV 1000 ML 1,000 ML IV SCH ×2 (08:04→11:12)
[2019-05-26] MEDS ORDERED: LIDOCAINE 1% INJ 20 ML 20 ML VIAL ONE (08:08)
[2019-05-26] MEDS ORDERED: NS IV 1000 ML 1,000 ML ONE (08:08)
[2019-05-26] MEDS ORDERED: HEParin (CATH LAB) 2,000 ML IV ONE (08:08)
[2019-05-26 08:32] LABS: HEMOGLOBIN 14.9 G/DL (13.3-17.7); MEAN PLATELET VOLUME 9.6 FL (7.4-10.4); RED CELL DISTRIBUTION WIDTH 14.6 % (10.0-14.5); WHITE BLOOD COUNT 6.5 10^3/uL (4.3-11.0)
[2019-05-26 08:49] LABS: INR 0.9 (0.8-1.4); PROTHROMBIN TIME PATIENT 12.3 SEC (12.2-14.7)
[2019-05-26] MEDS ORDERED: LOXA10CA PO (08:51)
[2019-05-26] MEDS ORDERED: [UNRECOGNIZED DRUG - CODE] PO (08:51)
[2019-05-26] MEDS ORDERED: PANT40TA2 PO (08:51)
[2019-05-26 08:56] LABS: ALANINE AMINOTRANSFERASE 23 U/L (0-55); ALBUMIN 3.9 GM/DL (3.2-4.5); ALKALINE PHOSPHATASE 62 U/L (40-136); BILIRUBIN,TOTAL 0.4 MG/DL (0.1-1.0); BUN/CREATININE RATIO 13; CALCIUM 9.3 MG/DL (8.5-10.1); CARBON DIOXIDE 23 MMOL/L (21-32); CHLORIDE 109 MMOL/L (98-107); CHOLESTEROL 220 MG/DL (< 200); GFR ESTIMATED > 60; GLUCOSE 104 MG/DL (70-105); HDL CHOLESTEROL 50 MG/DL (40-60); POTASSIUM 3.9 MMOL/L (3.6-5.0); SODIUM 142 MMOL/L (135-145); TOTAL PROTEIN 6.9 GM/DL (6.4-8.2); TRIGLYCERIDES 133 MG/DL (<150); VLDL CHOLESTEROL 27 MG/DL (5-40)
[2019-05-26] MEDS ORDERED: LOXA25CA PO (09:36)
[2019-05-26] MEDS ORDERED: ATOR80TA76 PO (09:39)
--- NOTE | 2019-05-26 09:39 | NUR ---
SPOKE WITH PT WELL GOING THRU THE EXT MED HISTORY TO COMPLETE THE MED REC. PT WAS UNSURE HOW HE TAKES SOME OF HIS MEDICATIONS, ALONG WITH HOW SOME MEDS ARE PAST DUE; IT LEADS ME TO BELIEVE HE IS NON COMPLIANT. 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
[2019-05-26] MEDS ORDERED: fentaNYL INJECTION 100 MCG/2 ML AMP ONE (10:07)
[2019-05-26] MEDS ORDERED: MIDAZOLAM 5 MG/5 ML (VERSED) VIAL ONE (10:07)
--- NOTE | 2019-05-26 10:27 | Cardiac Procedure Note-CS/ASA ---
Pre-Procedure Note Pre-Op Procedure Note H&P Reviewed The H&P was reviewed, patient examined and no changes noted. Date H&P Reviewed: May 26, 2019 Time H&P Reviewed: 10:27 Conscious Sedation Pre-Proced Time 10:27 ASA Score 3 For ASA 3 and 4: Consider anesthesia and medical clearance. Also, for patients with a history of failed moderate sedation consider anesthesia. Airway Lungs Heart ASA score ASA 1: a normal healthy patient ASA 2: a patient with a mild systemic disease (mid diabetes, controlled hypertension, obesity ASA 3: a patient with a severe systemic disease that limits activity (angina, COPD, prior Myocardial infarction) ASA 4: a patient with an incapacitating disease that is a constant threat to life (CHF, renal failure) ASA 5: a moribund patient not expected to survive 24 hrs. (ruptured aneurysm) ASA 6: a declared brain- patient whose organs are being harvested. For emergent operations, add the letter E after the classification Mallampati Classification Grade 2 Sedation Plan Analgesia, Amnesia, Plan communicated to team members, Discussed options with patient/fam, Discussed risks with patient/fam The patient is an appropriate candidate to undergo the planned procedure, sedation, and anesthesia. The patient immediately re-assessed prior to indication. ZULEYMA LOMAS MD FACP FAC CCDS May 26, 2019 10:27
[2019-05-26] MEDS ORDERED: PATIENT MAY USE OWN MEDS, ALL PO SCH (11:15)
--- NOTE | 2019-05-26 11:16 | Discharge Inst-Cardiology ---
Discharge Inst-Cardiac Discharge Medications Continued Medications: Amitriptyline HCl (Amitriptyline HCl) 25 Mg Tablet 50-75 MG PO HS PRN for SLEEP, TAB PICKED UP #60 ON 03-26-2019 Aspirin (Dyer Aspirin) 81 Mg Tab.chew 81 MG PO DAILY Atorvastatin Calcium (Atorvastatin Calcium) 80 Mg Tablet 80 MG PO HS, TAB LAST PICKED UP 11-01-2018 #90 FOR A 90 DAY SUPPLY Loxapine Succinate (Loxapine) 25 Mg Capsule 25 MG PO HS, CAP Metoprolol Succinate (Metoprolol Succinate) 25 Mg Tab.er.24h 25 MG PO DAILY, TAB Pantoprazole Sodium (Protonix) 40 Mg Tablet.dr 40 MG PO DAILY, TAB Paroxetine HCl (Paroxetine HCl) 20 Mg Tablet 20 MG PO HS, TAB LAST FILLED #30/30DS ON 03-23-2019 ZULEYMA LOMAS MD FACP FAC CCDS May 26, 2019 11:16
--- NOTE | 2019-05-26 11:17 | Discharge Inst-Post CATH ---
Discharge Inst-CATH/EP Post Cardiac Cath/EP D/C Inst Follow Up/Plan F/u with Dr Marie in 2 weeks ACTIVITY * Go Home directly and rest. * Limit activity of the leg (or wrist if it was used) for 7 days including aerobics, swimming, jogging, bicycling, etc. * Restrict stair-climbing for 7 days if possible, if not, climb up with your n on-cath leg, then bring together on the same step. * Avoid lifting, pushing, pulling or excessive movement of the affected ex tremity for 7 days. * Customary sexual activity may be resumed after 2 days-use caution not to use a position that strains or causes pain to the affected extremity. * No driving for 24 hours. * NO SMOKING. * Avoid straining for bowel movements for 7 days. * Gentle walking on level ground is allowed. * Returning to work will depend on the type of procedure and the results. Your doctor will discuss this with you. CALL YOUR DOCTOR FOR ANY OF THE FOLLOWING: *If bleeding from the puncture site occurs- Apply gentle pressure to site with clean cloth and call your doctor or EMS. * If a knot or lump forms under the skin, increases in size, or causes pain. * If bruising appears to be worsening or moving further down your leg instead of disappearing. * Temperature above 101 F. CARE OF YOUR GROIN INCISION; * Bruising or purple discoloration of the skin near the puncture site is common. * You may shower only, no bathtub bathing for 5 days. Be careful to avoid slipping as your leg may feel stiff. * If a closure device was used on your femoral artery, please see the attached guide regarding care of the device and your leg. * Leave dressing on FOR 24 hours. CARE OF YOUR WRIST INCISION; * Bruising or purple discoloration of the skin near the puncture site is common. * You may shower. * DO NOT submerge wrist. * Leave dressing on FOR 24 hours. ZULEYMA MARIE MD FAC FAC CCDS May 26, 2019 11:17
--- NOTE | 2019-05-26 11:25 | NUR ---
antoine reilly reported patient admitted with bp's 160's over teens
--- NOTE | 2019-05-26 12:15 | NUR ---
patient just took blood pressure medications and educated him to follow up with primary care physician.
--- NOTE | 2019-05-26 13:58 | CARDIAC CATHETERIZATION ---
DATE OF SERVICE: 05/26/2019 CARDIAC CATHETERIZATION REPORT The patient is a 49-year-old man, who is known to have coronary artery disease and has had stenting of the right coronary artery with Alpine Xience 4.0 x 23 and 4.0 x 18 mm stents in 02/2018. He has recurrent chest discomfort, suggestive of recurrent angina. Cardiac catheterization was carried out today after having obtained an informed consent. PROCEDURE: He was brought to the cardiac catheterization laboratory in a fasting state. Right groin was prepared and draped in the usual sterile fashion. Lidocaine 1% was used for local anesthesia. Modified Seldinger technique was used to advance a 5-Nauruan sheath in right femoral artery, 5-Nauruan JL4 catheter was used for left coronary angiography, 5-Nauruan JR4 catheter for right coronary angiography. A 5-Nauruan pigtail catheter was used for left heart catheterization and left ventricular angiography. Pigtail catheter was pulled back to the aortic root and aortic root angiography was performed. Angiography of the right femoral artery was carried out through the sheath. Mynx was used to achieve hemostasis following sheath removal. He tolerated the procedure well. HEMODYNAMICS: Left ventricular end-diastolic pressure following coronary angiography was 8 mmHg. There is no significant pressure gradient on pullback across the aortic valve. Ascending aortic pressure was 122/86 with a mean of 103 mmHg. CORONARY ANGIOGRAPHY: Left main coronary artery is free of significant disease. Left anterior descending artery has mild plaques. Second diagonal branch of the left anterior descending artery has 60 to 70% ostial and proximal stenosis. This vessel is of a small caliber. The terminal obtuse marginal branch of the left circumflex artery has 60% distal stenosis. Right coronary artery is large and dominant. It has widely patent stents in its mid portion. The vessel has diffuse mild to moderate plaque. LEFT VENTRICULAR ANGIOGRAPHY: Left ventricular angiography was carried out in the right anterior oblique projection. Global left ventricular systolic function is well preserved. Left ventricular ejection fraction is 50 to 55%. No distinct regional wall motion abnormality was seen. AORTIC ROOT ANGIOGRAPHY: Aortic root angiography did not indicate any aortic root dilatation or ascending aortic dissection. No significant aortic regurgitation is seen. The aortic valve leaflets show good leaflet excursion. CONCLUSIONS: 1. Angiographically mild to moderate coronary artery disease. There are patent stents in the mid right coronary that are known to be Alpine Xience 4.0 x 23 and 4.0 x 18 mm stents that were placed in 02/2018. 2. Normal left ventricular end-diastolic pressure. 3. Well-preserved global left ventricular systolic function with an ejection fraction of 50 to 55%. DISCUSSION AND RECOMMENDATIONS: Based on results of the study, it appears appropriate to continue a conservative approach. Risk factor modification has been reviewed. Outpatient followup is advised. Job ID: [id number] DocumentID: [id number] Dictated Date: 05/26/2019 11:07:36 Agricultural Economist Date: 05/26/2019 13:57:54 Dictated By: ZULEYMA LMOAS MD, MA, FACP, FACC, MTDD
--- NOTE | 2019-05-26 14:30 | NUR ---
1000 ml ns infused
== END 2019-05-26 14:45 | disposition home or self-care (01) ==
LOC: CATH 07:56 → SDC 11:24 → CATH 14:45
PROVIDERS: ATTEND Internal Medicine Cardiovascular Disease
DX: I25.10 Atherosclerotic heart disease of native coronary artery without angina pectoris (principal); I11.9 Hypertensive heart disease without heart failure; E78.5 Hyperlipidemia, unspecified; G89.29 Other chronic pain; M54.9 Dorsalgia, unspecified; E66.9 Obesity, unspecified; F32.9 Major depressive disorder, single episode, unspecified; Z68.35 Body mass index [BMI] 35.0-35.9, adult; Z95.1 Presence of aortocoronary bypass graft; Z79.82 Long term (current) use of aspirin; Z79.891 Long term (current) use of opiate analgesic; Z79.899 Other long term (current) drug therapy; Z80.9 Family history of malignant neoplasm, unspecified; Z82.3 Family history of stroke
CPT/HCPCS: 36415; 80053; 80061; 85027; 85610; 85730; 87081; 93458; 93567

== ENCOUNTER 2019-08-10 11:05 | Emergency (ER) | payer MEDICARE, MEDICAID ==
[~2019-08-10] VITALS: Ht 175.2 cm; Wt 115.9 kg
[~2019-08-10 11:05] MED LIST changes: +LOXA10CA PO; +PANT40TA2 PO; +[UNRECOGNIZED DRUG - CODE] PO
[2019-08-10] MEDS ORDERED: NITROGLYCERIN 0.4 MG SL TABS BTL 25'S SL ONE (11:20)
[2019-08-10] MEDS ORDERED: ASPIRIN 81 MG CHEW (CHILDREN'S ASA) PO ONE (11:30)
[2019-08-10 11:31] LABS: BASOPHILS % (AUTO) 0 % (0-10); EOSINOPHILS # (AUTO) 0.2 10^3/uL (0.0-0.3); EOSINOPHILS % (AUTO) 3 % (0-10); HEMATOCRIT 43 % (40-54); HEMOGLOBIN 14.3 G/DL (13.3-17.7); LYMPHOCYTES # (AUTO) 2.5 X 10^3 (1.0-4.0); LYMPHOCYTES % (AUTO) 47 % (12-44); MEAN CORPUSCULAR HEMOGLOBIN 30 PG (25-34); MEAN CORPUSCULAR HGB CONC 34 G/DL (32-36); MEAN CORPUSCULAR VOLUME 88 FL (80-99); MEAN PLATELET VOLUME 9.5 FL (7.4-10.4); MONOCYTES # (AUTO) 0.4 X 10^3 (0.0-1.0); MONOCYTES % (AUTO) 8 % (0-12); NEUTROPHILS # (AUTO) 2.2 X 10^3 (1.8-7.8); NEUTROPHILS % (AUTO) 42 % (42-75); PLATELET COUNT 291 10^3/uL (130-400); RED CELL DISTRIBUTION WIDTH 13.9 % (10.0-14.5); WHITE BLOOD COUNT 5.3 10^3/uL (4.3-11.0)
--- NOTE | 2019-08-10 11:37 | Diagnostic Imaging Report ---
INDICATION: Chest pain. TIME OF EXAM: 11:28 AM Comparison is made with prior chest from 07/31/2018. Heart size is stable. Lungs are clear of acute infiltrates. There is probable tiny calcified granulomas in the left base. No effusion or pneumothorax is seen. IMPRESSION: Stable chest. No acute cardiopulmonary process is detected. Dictated by: Dictated on workstation # [id number]
--- NOTE | 2019-08-10 11:40 | NUR ---
PAIN 2/10 AFTER FIRST NITRO.,
[2019-08-10 11:41] LABS: INR 0.9 (0.8-1.4); PROTHROMBIN TIME PATIENT 12.9 SEC (12.2-14.7)
[2019-08-10 11:49] LABS: ALANINE AMINOTRANSFERASE 24 U/L (0-55); ALKALINE PHOSPHATASE 63 U/L (40-136); BILIRUBIN,TOTAL 0.5 MG/DL (0.1-1.0); BUN/CREATININE RATIO 9; CALCIUM 9.1 MG/DL (8.5-10.1); CARBON DIOXIDE 25 MMOL/L (21-32); CHLORIDE 108 MMOL/L (98-107); CREATININE SERUM 1.21 MG/DL (0.60-1.30); GFR ESTIMATED > 60; GLUCOSE 97 MG/DL (70-105); LIPASE 16 U/L (8-78); SODIUM 140 MMOL/L (135-145); TOTAL PROTEIN 6.8 GM/DL (6.4-8.2)
--- NOTE | 2019-08-10 11:50 | ED Chest Pain ---
General Chief Complaint: Chest Pain Stated Complaint: CHEST PAIN Nursing Triage Note: AMB TO ROOM WITH C/O CHEST PAIN ONSET THIS AM UNSURE WHAT TIME BUT IT DID WAKE HIM UP. HAS NOT BEEN TAKING HIS PLAVIX X 1 MONTH HAS JUST RECENT STARTED BACK ON IT Nursing Sepsis Screen: No Definite Risk Source: patient Exam Limitations: no limitations History of Present Illness Date Seen by Provider: Aug 10, 2019 Time Seen by Provider: 11:50 Initial Comments To ER with left parasternal chest pain described as a knot that awakened him from sleep this morning. It is exquisitely tender to palpation. History of coronary artery disease, [address] Blake. Most recent heart catheter was in May of this year showing angiographically mild to moderate coronary disease with patent stents in the mid right coronary. Ejection fraction 50-55%. No intervention done at that time. He has been off of his Plavix for about one month, states he had some "nerves burned" (lumbar rhizotomy?) in his low back and hasn't restarted the Plavix yet. He initially stopped it because he ran out. Timing/Duration: 1-2 days Severity/Quality: moderate Location: central Radiation: no radiation Activities at Onset: none Prior CP/Workup: angina, cardiac cath ASA po TAKE DOWN INSPECTOR: No NTG SL TAKE DOWN INSPECTOR: No Associated Symptoms: No shortness of breath Allergies and Home Medications Allergies Coded Allergies: No Known Drug Allergies (Unverified , 02/03/19) Home Medications Amitriptyline HCl 25 Mg Tablet, 50-75 MG PO HS PRN for SLEEP, (Reported) PICKED UP #60 ON 03-26-2019 Aspirin 81 Mg Tab.chew, 81 MG PO DAILY, (Reported) Atorvastatin Calcium 80 Mg Tablet, 80 MG PO HS, (Reported) LAST PICKED UP 11-01-2018 #90 FOR A 90 DAY SUPPLY Loxapine Succinate 25 Mg Capsule, 25 MG PO HS, (Reported) Metoprolol Succinate 25 Mg Tab.er.24h, 25 MG PO DAILY, (Reported) Pantoprazole Sodium 40 Mg Tablet.dr, 40 MG PO DAILY, (Reported) Paroxetine HCl 20 Mg Tablet, 20 MG PO HS, (Reported) LAST FILLED #30/30DS ON 03-23-2019 Patient Home Medication List Home Medication List Reviewed: Yes Review of Systems Review of Systems Constitutional: see HPI EENTM: No Symptoms Reported Respiratory: No Symptoms Reported Cardiovascular: See HPI, Chest Pain Gastrointestinal: No Symptoms Reported Genitourinary: No Symptoms Reported Musculoskeletal: no symptoms reported Skin: no symptoms reported Psychiatric/Neurological: No Symptoms Reported Endocrine: No Symptoms Reported Hematologic/Lymphatic: No Symptoms Reported Past Nquvtcs-Fnxxny-Staxey Hx Patient Social History Alcohol Use: Denies Use Number of Drinks Today: AA Alcohol Beverage of Choice: Beer Recreational Drug Use: No Smoking Status: Former Smoker Type Used: Cigarettes Former Smoker, Quit: Feb 03, 1989 2nd Hand Smoke Exposure: No Recent Foreign Travel: No Contact w/Someone Who Travel: No Recent Infectious Disease Expo: No Recent Hopitalizations: No Seasonal Allergies Seasonal Allergies: Yes Past Medical History Surgeries: Yes (LT FOOT TRAUMA) Coronary Stent, Orthopedic Respiratory: No Cardiac: Yes (STENT X1 ) Coronary Artery Disease, High Cholesterol, Hypertension Neurological: Yes Seizure Disorder Reproductive Disorders: No Sexually Transmitted Disease: No HIV/AIDS: No Genitourinary: No Gastrointestinal: Yes Gastroesophageal Reflux, Polyps Musculoskeletal: Yes Chronic Back Pain Endocrine: No HEENT: Yes (GLASSES) Loss of Vision: Denies Hearing Impairment: Denies Cancer: No Psychosocial: Yes Anxiety, Suicide Attempts, Schizophrenia, Depression Integumentary: No Blood Disorders: No Adverse Reaction/Blood Tranf: No (N/A) Family Medical History No Pertinent Family Hx Physical Exam Vital Signs Vital Signs - First Documented 08/10/19 11:10 Temp 37.0 Pulse 78 Resp 18 B/P (MAP) 147/84 (105) Pulse Ox 98 O2 Delivery Room Air Capillary Refill : Less Than 3 Seconds Height, Weight, BMI Height: 5'9.00" Weight: 231lbs. 0oz. 104.862394fi; 37.00 BMI Method:Stated General Appearance: No Apparent Distress, WD/WN, Other (left sternal border very tender to palpation this does reproduce his pain) HEENT: PERRL/EOMI, TMs Normal Respiratory: Lungs Clear, Normal Breath Sounds, No Accessory Muscle Use, No Respiratory Distress Cardiovascular: Regular Rate, Rhythm, Normal Peripheral Pulses Gastrointestinal: Normal Bowel Sounds, Non Tender, Soft Extremity: Normal Capillary Refill, Normal Inspection Neurologic/Psychiatric: Alert, Oriented x3 Skin: Normal Color, Warm/Dry Procedures/Interventions Suture Size: 5-0 Progress/Results/Core Measures Results/Orders Lab Results Laboratory Tests Test 08/10/19 11:21 08/10/19 11:23 08/10/19 13:12 Range/Units White Blood Count 5.3 4.3-11.0 10^3/uL Red Blood Count 4.85 4.35-5.85 10^6/uL Hemoglobin 14.3 13.3-17.7 G/DL Hematocrit 43 40-54 % Mean Corpuscular Volume 88 80-99 FL Mean Corpuscular Hemoglobin 30 25-34 PG Mean Corpuscular Hemoglobin Concent 34 32-36 G/DL Red Cell Distribution Width 13.9 10.0-14.5 % Platelet Count 291 130-400 10^3/uL Mean Platelet Volume 9.5 7.4-10.4 FL Neutrophils (%) (Auto) 42 42-75 % Lymphocytes (%) (Auto) 47 H 12-44 % Monocytes (%) (Auto) 8 0-12 % Eosinophils (%) (Auto) 3 0-10 % Basophils (%) (Auto) 0 0-10 % Neutrophils # (Auto) 2.2 1.8-7.8 X 10^3 Lymphocytes # (Auto) 2.5 1.0-4.0 X 10^3 Monocytes # (Auto) 0.4 0.0-1.0 X 10^3 Eosinophils # (Auto) 0.2 0.0-0.3 10^3/uL Basophils # (Auto) 0.0 0.0-0.1 10^3/uL Prothrombin Time 12.9 12.2-14.7 SEC INR Comment 0.9 0.8-1.4 Activated Partial Thromboplast Time 31 24-35 SEC Sodium Level 140 135-145 MMOL/L Potassium Level 4.0 3.6-5.0 MMOL/L Chloride Level 108 H 98-107 MMOL/L Carbon Dioxide Level 25 21-32 MMOL/L Anion Gap 7 5-14 MMOL/L Blood Urea Nitrogen 11 7-18 MG/DL Creatinine 1.21 0.60-1.30 MG/DL Estimat Glomerular Filtration Rate > 60 BUN/Creatinine Ratio 9 Glucose Level 97 70-105 MG/DL Calcium Level 9.1 8.5-10.1 MG/DL Corrected Calcium 9.1 8.5-10.1 MG/DL Magnesium Level 2.0 1.6-2.4 MG/DL Total Bilirubin 0.5 0.1-1.0 MG/DL Aspartate Amino Transf (AST/SGOT) 32 5-34 U/L Alanine Aminotransferase (ALT/SGPT) 24 0-55 U/L Alkaline Phosphatase 63 40-136 U/L Myoglobin 86.3 10.0-92.0 NG/ML Troponin I < 0.028 < 0.028 <0.028 NG/ML B-Type Natriuretic Peptide 12.7 <100.0 PG/ML Total Protein 6.8 6.4-8.2 GM/DL Albumin 4.0 3.2-4.5 GM/DL Lipase 16 8-78 U/L D-Dimer 0.29 0.00-0.49 UG/ML My Orders Orders - JULIANA CARMONA APRN Cbc With Automated Diff (08/10/19 11:16) Magnesium (08/10/19 11:16) Chest 1 View, Ap/Pa Only (08/10/19 11:16) Comprehensive Metabolic Panel (08/10/19 11:16) Myoglobin Serum (08/10/19 11:16) Protime With Inr (08/10/19 11:16) Partial Thromboplastin Time (08/10/19 11:16) O2 (08/10/19 11:16) Monitor-Rhythm Ecg Trace Only (08/10/19 11:16) Lipid Panel (08/11/19 06:00) Ed Iv/Invasive Line Start (08/10/19 11:16) Lipase (08/10/19 11:16) BNP (08/10/19 11:16) Troponin I (08/10/19 11:16) Aspirin Chewable Tablet (Baby Aspirin Ch (08/10/19 11:30) Nitroglycerin 0.4 Mg Btl 25's (Nitrostat (08/10/19 11:20) Fentanyl Injection (Sublimaze Injection (08/10/19 12:15) Troponin I (08/10/19 13:21) Fibrin Degradation Products (08/10/19 12:28) Medications Given in ED Current Medications Medications Dose Ordered Sig/Yazmin Route Start Time Stop Time Status Last Admin Dose Admin Aspirin 324 mg ONCE ONCE PO 08/10/19 11:30 08/10/19 11:31 DC 08/10/19 11:25 243 MG Fentanyl Citrate 50 mcg ONCE ONCE IVP 08/10/19 12:15 08/10/19 12:16 DC 12/23/19 12:44 50 MCG Nitroglycerin 0.4 mg STK-MED ONCE SL 08/10/19 11:20 08/10/19 11:25 DC 08/10/19 11:26 0.4 MG Vital Signs/I&O 08/10/19 11:10 Temp 37.0 Pulse 78 Resp 18 B/P (MAP) 147/84 (105) Pulse Ox 98 O2 Delivery Room Air Blood Pressure Mean: 105 Departure Communication (Admissions) Family Conversation 1 sublingual nitroglycerin took his pain from an 8 out of 10 to a 2 out of 10. However his chest pain is seemingly from the chest wall, it is very tender to palpation in this palpation does reproduce the pain that he's been having. Troponins negative 2. I'll send him home, restart the Plavix, he would also like his Protonix called back in. NAME: MAYDA TYLER MED REC#: [id number] PT STATUS: REG ER : 1970 PHYSICIAN: JULIANA CARMONA [employer] ADMIT DATE: 08/10/19/ER Draft Date of Exam:08/10/19 CHEST 1 VIEW, AP/PA ONLY INDICATION: Chest pain. TIME OF EXAM: 11:28 AM Comparison is made with prior chest from 07/31/2018. Heart size is stable. Lungs are clear of acute infiltrates. There is probable tiny calcified granulomas in the left base. No effusion or pneumothorax is seen. IMPRESSION: Stable chest. No acute cardiopulmonary process is detected. Dictated on workstation # [id number] Dict: 08/10/19 1135 Trans: 08/10/19 1137 [facility] [id number] Interpreted by: SUJATHA SEALS MD Electronically signed by: Impression Primary Impression: CAD (coronary artery disease), [place] coronary artery Qualified Codes: I25.10 - Atherosclerotic heart disease of [place] coronary artery without angina pectoris Disposition: ADMITTED INPATIENT Condition: Improved Departure-Patient Inst. Decision time for Depature: 13:54 Referrals: GUERDA RO MD (PCP/Family) Primary Care Physician Patient Instructions: Chest Pain (DC) Add. Discharge Instructions: 1. Return to ER for any concerns 2. Follow-up with your doctor next week 3. Restart the blood thinner Plavix and the acid aegis console operator track today. All discharge instructions reviewed with patient and/or family. Voiced understanding. Scripts Pantoprazole Sodium (Protonix) 40 Mg Tablet.dr 40 MG PO DAILY, #30 TAB Prov: JULIANA CARMONA APRN 08/10/19 Clopidogrel Bisulfate (Plavix) 75 Mg Tablet 75 MG PO DAILY, #30 TAB Prov: JULIANA CARMONA APRN 08/10/19 Copy Copies To 1: ZULEYMA LOMAS MD [facility] JULIANA CARMONA APRN Aug 10, 2019 11:50
[2019-08-10] MEDS ORDERED: fentaNYL INJECTION 100 MCG/2 ML AMP IVP ONE (12:15)
[2019-08-10] MEDS ORDERED: PANT40TA2 PO (13:54)
[2019-08-10] MEDS ORDERED: CLOP75TA69 PO (13:54)
[2019-08-10 14:11] VITALS: BP 131/86
== END 2019-08-10 14:11 | disposition other institution (70) ==
LOC: EDUNIT# 11:05 → ER 11:06
DX: I25.10 Atherosclerotic heart disease of native coronary artery without angina pectoris (principal); I10 Essential (primary) hypertension; E78.00 Pure hypercholesterolemia, unspecified; G40.909 Epilepsy, unspecified, not intractable, without status epilepticus; F41.9 Anxiety disorder, unspecified; F20.9 Schizophrenia, unspecified; F32.9 Major depressive disorder, single episode, unspecified; K21.9 Gastro-esophageal reflux disease without esophagitis; Z79.82 Long term (current) use of aspirin; Z87.891 Personal history of nicotine dependence; Z95.5 Presence of coronary angioplasty implant and graft
CPT/HCPCS: 36415; 71045; 80053; 83690; 83735; 83874; 83880; 84484; 85025; 85379; 85610; 85730; 93041; 96374

== ENCOUNTER 2020-02-06 08:01 | Emergency (ER) | payer MEDICARE, MEDICAID ==
[~2020-02-06] VITALS: Ht 165.1 cm; Wt 112.5 kg
[~2020-02-06 08:01] MED LIST changes: +CLOP75TA69 PO; -METO-387 PO; +MTP25TSR PO; -TRAM50TA2 PO; +TRM50T PO
[2020-02-06] MEDS ORDERED: fentaNYL INJECTION 100 MCG/2 ML AMP IVP ONE (08:15)
[2020-02-06] MEDS ORDERED: LACTATED RINGERS 1,000 ML IV ONE (08:15)
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
[2020-02-06] MEDS ORDERED: CATHETER FLUSH 10 ML SYR IV PRN (08:45)
[2020-02-06] MEDS ORDERED: IOHEXOL 350 MG/ML 100 ML (OMNIPAQUE 350) VIAL IV ONE (08:45)
[2020-02-06] MEDS ORDERED: NS 100 ML (IVPB) BAG IV ONE (08:45)
[2020-02-06] MEDS ORDERED: HOLD METFORMIN - RECEIVED CONTRAST 20 ML VIAL IV SCH (08:45)
[2020-02-06 08:47] LABS: HEMOGLOBIN 14.5 G/DL (13.3-17.7); MEAN PLATELET VOLUME 9.7 FL (7.4-10.4); RED CELL DISTRIBUTION WIDTH 13.7 % (10.0-14.5); WHITE BLOOD COUNT 5.8 10^3/uL (4.3-11.0)
[2020-02-06 09:03] LABS: ALANINE AMINOTRANSFERASE 20 U/L (0-55); ALBUMIN 3.9 GM/DL (3.2-4.5); ALKALINE PHOSPHATASE 62 U/L (40-136); BILIRUBIN,DIRECT 0.1 MG/DL (0.0-0.3); BILIRUBIN,INDIRECT 0.2 MG/DL; BILIRUBIN,TOTAL 0.3 MG/DL (0.1-1.0); BUN/CREATININE RATIO 7; CALCIUM 8.8 MG/DL (8.5-10.1); CARBON DIOXIDE 24 MMOL/L (21-32); CHLORIDE 108 MMOL/L (98-107); CREATININE SERUM 1.26 MG/DL (0.60-1.30); GFR ESTIMATED > 60; GLUCOSE 108 MG/DL (70-105); POTASSIUM 3.4 MMOL/L (3.6-5.0); SODIUM 142 MMOL/L (135-145); TOTAL PROTEIN 6.7 GM/DL (6.4-8.2)
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
[2020-02-06] MEDS ORDERED: CYCL10TA9 PO (10:16)
[2020-02-06] MEDS ORDERED: oxyCODONE/APAP 5/325MG (PERCOCET 5) TABLET PO ONE (10:30)
[2020-02-06] MEDS ORDERED: ORPHENADRINE 60 MG/2 ML (NORFLEX) AMP (ED ONLY) IV ONE (10:30)
[2020-02-06 10:33] VITALS: BP 151/102
== END 2020-02-06 10:34 | disposition home or self-care (01) ==
LOC: EDUNIT# 08:01 → ER 08:03
DX: S06.0X1A Concussion with loss of consciousness of 30 minutes or less, initial encounter (principal); M62.838 Other muscle spasm; M54.42 Lumbago with sciatica, left side; I10 Essential (primary) hypertension; E78.00 Pure hypercholesterolemia, unspecified; I25.10 Atherosclerotic heart disease of native coronary artery without angina pectoris; K21.9 Gastro-esophageal reflux disease without esophagitis; F20.9 Schizophrenia, unspecified; F41.9 Anxiety disorder, unspecified; F32.9 Major depressive disorder, single episode, unspecified; R40.2142 Coma scale, eyes open, spontaneous, at arrival to emergency department; R40.2242 Coma scale, best verbal response, confused conversation, at arrival to emergency department; R40.2362 Coma scale, best motor response, obeys commands, at arrival to emergency department; Z95.5 Presence of coronary angioplasty implant and graft; Z79.02 Long term (current) use of antithrombotics/antiplatelets; Z87.891 Personal history of nicotine dependence; Z79.82 Long term (current) use of aspirin; V49.40XA Driver injured in collision with unspecified motor vehicles in traffic accident, initial encounter
CPT/HCPCS: 70450; 71260; 72125; 72128; 72131; 73502; 80048; 80076; 85027; 93005; 93041; 99284; G0480; 36415; 80320

== ENCOUNTER 2020-03-15 05:42 | Outpatient (RCR) | payer MEDICARE, MEDICAID ==
[~2020-03-15] VITALS: Ht 176.5 cm; Wt 112.1 kg
== END 2020-03-15 14:16 | disposition home or self-care (01) ==
LOC: PREOP 05:42
PROVIDERS: ATTEND Surgery
DX: Z01.818 Encounter for other preprocedural examination (principal)

== ENCOUNTER 2020-04-12 10:32 | Day surgery (SDC) | payer MEDICARE, MEDICAID ==
[~2020-04-12] VITALS: Ht 176.5 cm; Wt 118.2 kg
[2020-04-12] MEDS ORDERED: LACTATED RINGERS 1,000 ML IV STA (10:34)
[2020-04-12 10:37] VITALS: BP 125/92
[2020-04-12] MEDS ORDERED: LACTATED RINGERS 1,000 ML IV ONE (10:38)
[2020-04-12] MEDS ORDERED: PROPOFOL INJECTION 50 ML IV ONE (11:28)
[2020-04-12] MEDS ORDERED: MIDAZOLAM 2 MG/2 ML (VERSED) VIAL ONE (11:29)
[2020-04-12] MEDS ORDERED: ONDANSETRON 4 MG/2 ML (SDV) Z0FRAN IVP PRN (12:30)
[2020-04-12] MEDS ORDERED: MEPERIDINE (DEMEROL) INJ 50 MG/ML IVP ONE (12:30)
[2020-04-12] MEDS ORDERED: fentaNYL INJECTION 100 MCG/2 ML AMP IVP ONE (12:30)
[2020-04-12] MEDS ORDERED: morphine INJ 10 MG/ML 1ML (SYR OR VIAL) IVP ONE (12:30)
[2020-04-12 12:50] VITALS: BP 110/58
--- NOTE | 2020-04-12 12:53 | Progress Note-Post Operative ---
Post-Operative Progess Note Surgeon (s)/Hothouse Worker (s) Surgeon LANDON GUTIERREZ DO Hothouse Worker: na Pre-Operative Diagnosis rectal mucosal change Post-Operative Diagnosis colon polyp x 2 rectal mucosal change Procedure & Operative Findings Date of Procedure 04/12/20 Procedure Performed/Findings colonoscopy c hot bx polypectomy x 2 and cold biopsy rectal mucosal change Anesthesia Type per neurodiagnostic tech Estimated Blood Loss Estimated blood loss (mL): none Specimens/Packing Specimens Removed descending colon polyp x 2 and rectal biopsy LANDON GUTIERREZ DO Apr 12, 2020 12:53
[2020-04-12 12:55] VITALS: BP 110/58
--- NOTE | 2020-04-12 12:57 | Discharge Inst-Simple/Standard ---
Discharge Inst-Standard Discharge Medications New, Converted or Re-Newed RX: RX on Chart Patient Instructions/Follow Up Plan of Care/Instructions/FU: 2 weeks Radha Activity as Tolerated: Yes Discharge Diet: Regular Diet LANDON GUTIERREZ DO Apr 12, 2020 12:57
[2020-04-12 13:00] VITALS: BP 139/86
--- NOTE | 2020-04-12 13:17 | Anesthesia-General Post-Op ---
MAC Patient Condition Mental Status/LOC: Same as Preop Cardiovascular: Satisfactory Nausea/Vomiting: Absent Respiratory: Satisfactory Pain: Controlled Complications: Absent Post Op Complications Complications None Follow Up Care/Instructions Patient Instructions None needed. Anesthesiology Discharge Order Discharge Order Patient is doing well, no complaints, stable vital signs, no apparent adverse anesthesia problems. No complications reported per nursing. CRUZ PACHECO CRNA Apr 12, 2020 13:17
[2020-04-12 13:25] VITALS: BP 135/106
[2020-04-12 13:45] VITALS: BP 135/106
--- NOTE | 2020-04-12 21:20 | OPERATIVE REPORT ---
DATE OF SERVICE: 04/12/2020 PREOPERATIVE DIAGNOSIS: History of polyps. POSTOPERATIVE DIAGNOSIS: Colon polyps x2, descending colon polyp and rectal mucosal change. PROCEDURE: Colonoscopy with hot biopsy polypectomy x2, cold biopsy of rectal mucosal change. SURGEON: Landon Garcia DO ANESTHESIA: Per RESPIRATORY CARE ASSISTANT. ESTIMATED BLOOD LOSS: None. COMPLICATIONS: None. INDICATIONS: The patient is a 49-year-old male with history of colon polyps. He understands risks and benefits of procedure and wished to proceed with procedure. Consent was signed in the chart. DESCRIPTION OF PROCEDURE: The patient was taken to the endoscopy suite, placed in left lateral recumbent position. Timeout was performed. Digital rectal exam was performed. No palpable polyps, masses or ulcerations. Scope was inserted in the rectum, advanced all the way to cecum with minimal difficulty. Prep was adequate. Scope was then slowly retracted back. There were no polyps, mass, ulceration of the cecum, ascending, transverse colon, descending colon, two very small polyps were present, which hot biopsy polypectomy was performed. Scope was then continuously retracted back. No polyps, masses or ulcerations in the sigmoid colon. Once in the rectum, slight mucosal change present. Cold biopsy was obtained. Scope was retroflexed noting no other pathology. Scope was returned to its normal position, slowly withdrawn until completely removed. The patient tolerated procedure well without any complications and taken to recovery room in stable condition. RECOMMENDATIONS: The patient will need repeat colonoscopy in 3 years. He will follow up in the office in 2 weeks to discuss with pathology results. Any issues before that will be reevaluated at that time. Job ID: [id number] DocumentID: [id number] Dictated Date: 04/12/2020 13:00:36 Reporting Consultant Date: 04/12/2020 21:19:17 Dictated By: LANDON GARCIA DO
== END 2020-04-12 13:45 | disposition home or self-care (01) ==
LOC: ENDO 10:32
PROVIDERS: ATTEND Surgery
DX: Z12.11 Encounter for screening for malignant neoplasm of colon (principal); K63.5 Polyp of colon; K63.89 Other specified diseases of intestine; I25.10 Atherosclerotic heart disease of native coronary artery without angina pectoris; E78.5 Hyperlipidemia, unspecified; I11.0 Hypertensive heart disease with heart failure; I50.9 Heart failure, unspecified; R31.9 Hematuria, unspecified; G40.909 Epilepsy, unspecified, not intractable, without status epilepticus; E66.01 Morbid (severe) obesity due to excess calories; Z68.35 Body mass index [BMI] 35.0-35.9, adult; Z95.5 Presence of coronary angioplasty implant and graft; Z79.899 Other long term (current) drug therapy; Z79.82 Long term (current) use of aspirin; Z79.02 Long term (current) use of antithrombotics/antiplatelets; Z87.891 Personal history of nicotine dependence; Z86.010 Personal history of colon polyps
CPT/HCPCS: 88305

== ENCOUNTER → 2021-04-25 | Outpatient (CLI) | payer MEDICARE, MEDICAID ==
[~2021-04-25] MED LIST changes: +ASPI-1238 PO; -ASPI-983 PO; -SULF1TAB35 PO; +SULF1TAB38 PO
== END ==
LOC: CARD 09:02
PROVIDERS: ATTEND Internal Medicine Cardiovascular Disease
DX: I51.7 Cardiomegaly (principal)
CPT/HCPCS: 93306

== ENCOUNTER → 2021-04-28 | Outpatient (CLI) | payer MEDICARE, MEDICAID ==
[~2021-04-28] MED LIST changes: +REGADENOSON 0.4 MG/5 ML SYR (LEXISCAN) IV ONE
[2021-04-28] MEDS: CATHETER FLUSH 10 ML SYR IV PRN ×2 (07:40→08:55)
[2021-04-28 08:54] VITALS: BP 140/93
--- NOTE | 2021-05-01 13:25 | STRESS TEST ---
DATE OF SERVICE: 04/28/2021 RESTING AND POST REGADENOSON TECHNETIUM-99M TETROFOSMIN SPECT CT IMAGING ORDERING PHYSICIAN: Dr. Marie. PRIMARY PHYSICIAN: Dr. Montero. CLINICAL DIAGNOSIS: Chest discomfort. Baseline images were carried out after injection of 10.7 mCi of technetium-99m Tetrofosmin. This was followed by 0.4 mg of Regadenoson and 28.7 mCi of technetium-99m Tetrofosmin for stress imaging. The electrocardiogram showed sinus rhythm at baseline with nonspecific ST and T-wave abnormality that did not change significantly with the Regadenoson infusion. Review of images at rest and following stress does not indicate any distinct perfusion defects consistent with significant myocardial ischemia or infarction. Gated images show normal global left ventricular systolic function with a calculated ejection fraction of 51%. No distinct regional wall motion abnormalities were seen. Left ventricular end diastolic volume is 126 mL. TID is absent (1.04). CONCLUSIONS: 1. No evidence of significant myocardial ischemia or infarction on this study. 2. Normal regional wall motion. 3. Normal global left ventricular systolic function with a calculated ejection fraction of 51%. 4. Mild to moderate cardiomegaly. Job ID: [id number] DocumentID: [id number] Dictated Date: 05/01/2021 09:36:48 Service Administrator Date: 05/01/2021 13:24:12 Dictated By: ZULEYMA MARIE MD, MA, FACP, FACC,
== END ==
LOC: CARD 07:45
PROVIDERS: ATTEND Internal Medicine Cardiovascular Disease
DX: I25.10 Atherosclerotic heart disease of native coronary artery without angina pectoris (principal)
CPT/HCPCS: 78452; 93017; A9502

== ENCOUNTER 2021-07-15 13:03 | Emergency (ER) | payer MEDICARE, MEDICAID ==
[~2021-07-15] VITALS: Ht 175 cm; Wt 113.3 kg
[~2021-07-15 13:03] MED LIST changes: +CYCL10TA25 PO; -REGADENOSON 0.4 MG/5 ML SYR (LEXISCAN) IV ONE
[2021-07-15] MEDS ORDERED: fentaNYL INJ 100 MCG/2 ML AMP IVP ONE (14:00)
[2021-07-15 14:19] LABS: BASOPHILS # (AUTO) 0.1 10^3/uL (0.0-0.1); BASOPHILS % (AUTO) 1 % (0-10); EOSINOPHILS # (AUTO) 0.1 10^3/uL (0.0-0.3); EOSINOPHILS % (AUTO) 1 % (0-10); HEMATOCRIT 45 % (40-54); HEMOGLOBIN 14.9 g/dL (13.3-17.7); LYMPHOCYTES # (AUTO) 1.8 10^3/uL (1.0-4.0); LYMPHOCYTES % (AUTO) 30 % (12-44); MEAN CORPUSCULAR HEMOGLOBIN 29 pg (25-34); MEAN CORPUSCULAR HGB CONC 33 g/dL (32-36); MEAN CORPUSCULAR VOLUME 89 fL (80-99); MEAN PLATELET VOLUME 9.3 fL (9.0-12.2); MONOCYTES # (AUTO) 0.6 10^3/uL (0.0-1.0); MONOCYTES % (AUTO) 10 % (0-12); NEUTROPHILS # (AUTO) 3.4 10^3/uL (1.8-7.8); NEUTROPHILS % (AUTO) 57 % (42-75); PLATELET COUNT 299 10^3/uL (130-400); WHITE BLOOD COUNT 5.9 10^3/uL (4.3-11.0)
--- NOTE | 2021-07-15 14:20 | Diagnostic Imaging Report ---
EXAMINATION: Chest 2 view HISTORY: Right flank pain COMPARISON: 08/10/2019 FINDINGS: Heart size and pulmonary vasculature are normal. The lungs are clear without consolidation, pleural effusion, or pneumothorax. The osseous structures are intact. IMPRESSION: 1. No acute radiographic abnormality in the chest. Dictated by: Dictated on workstation # [id number]
[2021-07-15 14:29] LABS: POTASSIUM 4.2 MMOL/L (3.6-5.0)
[2021-07-15 14:30] LABS: CALCIUM 9.2 MG/DL (8.5-10.1)
[2021-07-15 14:32] LABS: TOTAL PROTEIN 6.9 GM/DL (6.4-8.2)
[2021-07-15 14:33] LABS: BILIRUBIN,TOTAL 0.6 MG/DL (0.1-1.0)
[2021-07-15 14:35] LABS: CREATININE SERUM 1.42 MG/DL (0.60-1.30)
[2021-07-15] MEDS ORDERED: PRD20T PO (15:12)
--- NOTE | 2021-07-15 15:14 | ED General ---
General Chief Complaint: Chest Wall Stated Complaint: R SIDE RIB PAIN Nursing Triage Note: PT PRESENTS TO ED VIA POV FROM HOME WITH COMPLAINTS OF R SIDED RIB PAIN SINCE HE WOKE UP THIS AM. PT DENIES ANY RECENT INJURY. Source of Information: Patient Exam Limitations: No Limitations Allergies and Home Medications Allergies Coded Allergies: No Known Drug Allergies (Unverified , 02/03/19) Patient Home Medication List Amitriptyline HCl (Amitriptyline HCl) 25 Mg Tablet, 50-75 MG PO HS PRN for SLEEP, (Reported) Entered as Reported by: KENN LAWSON on 03/04/18 1219 Aspirin ([place] Aspirin) 81 Mg Tab.chew, 81 MG PO DAILY, (Reported) Entered as Reported by: LATHA MORRIS on 05/26/19 0851 Atorvastatin Calcium (Atorvastatin Calcium) 80 Mg Tablet, 80 MG PO HS, (Reported) Entered as Reported by: LATHA MORRIS on 05/26/19 0939 Clopidogrel Bisulfate (Plavix) 75 Mg Tablet, 75 MG PO DAILY Prescribed by: JULIANA CARMONA on 08/10/19 1354 Cyclobenzaprine HCl (Cyclobenzaprine HCl) 10 Mg Tablet, 10 MG PO Q8H PRN for SPASMS Prescribed by: KEREN HAWK on 02/06/20 1016 Loxapine Succinate (Loxapine) 25 Mg Capsule, 25 MG PO HS, (Reported) Entered as Reported by: LATHA MORRIS on 05/26/19 0936 Metoprolol Succinate (Metoprolol Succinate) 25 Mg Tab.er.24h, 25 MG PO DAILY, (Reported) Entered as Reported by: KSENIA LAWLER on 01/02/16 0154 Pantoprazole Sodium (Protonix) 40 Mg Tablet.dr, 40 MG PO DAILY, (Reported) Entered as Reported by: LATHA MORRIS on 05/26/19 0851 Pantoprazole Sodium (Protonix) 40 Mg Tablet.dr, 40 MG PO DAILY Prescribed by: JULIANA CARMONA on 08/10/19 1354 Paroxetine HCl (Paroxetine HCl) 20 Mg Tablet, 20 MG PO HS, (Reported) Entered as Reported by: KSENIA LAWLER on 01/02/16 015 Past Yajwnsk-Bxhpqb-Ghycbd Hx Patient Social History Tobacco Use?: No Substance use?: No Alcohol Use?: No Pt feels they are or have been: No Immunizations Up To Date Tetanus Booster (TDap): Unknown PED Vaccines UTD: Yes Seasonal Allergies Seasonal Allergies: Yes Past Medical History Surgery/Hospitalization HX: PMH: HTN, BLOOD THINNER, HIGH CHOLESTEROL, CAD, PSYCH SX: STENTS Surgeries: Yes (2 cardiac stents) Cardiac Respiratory: No Cardiac: Yes Coronary Artery Disease, Hypertension Neurological: No Seizure Disorder Reproductive Disorders: No Sexually Transmitted Disease: No HIV/AIDS: No Genitourinary: No Gastrointestinal: No Gastroesophageal Reflux, Polyps Musculoskeletal: No Chronic Back Pain Endocrine: No HEENT: No Loss of Vision: Denies Hearing Impairment: Denies Cancer: No Psychosocial: No Anxiety, Suicide Attempts, Schizophrenia, Depression Integumentary: No Blood Disorders: No Adverse Reaction/Blood Tranf: No (N/A) Family Medical History No Pertinent Family Hx Physical Exam Vital Signs Vital Signs - First Documented 07/15/21 13:18 Temp 36.6 Pulse 73 Resp 18 B/P (MAP) 157/103 (121) Pulse Ox 97 Capillary Refill : Less Than 3 Seconds Height, Weight, BMI Height: 5'9.00" Weight: 231lbs. 0oz. 104.310609tr; 36.00 BMI Method:Stated Procedures/Interventions Suture Size: 5-0 Progress/Results/Core Measures Suspected Sepsis SIRS Temperature: Pulse: 73 Respiratory Rate: 18 Laboratory Tests 07/15/21 14:13: White Blood Count 5.9 Blood Pressure 157 /103 Mean: 121 Laboratory Tests 07/15/21 14:13: Creatinine 1.42H, Platelet Count 299, Total Bilirubin 0.6 Results/Orders Lab Results Laboratory Tests Test 07/15/21 14:13 Range/Units White Blood Count 5.9 4.3-11.0 10^3/uL Red Blood Count 5.11 4.30-5.52 10^6/uL Hemoglobin 14.9 13.3-17.7 g/dL Hematocrit 45 40-54 % Mean Corpuscular Volume 89 80-99 fL Mean Corpuscular Hemoglobin 29 25-34 pg Mean Corpuscular Hemoglobin Concent 33 32-36 g/dL Red Cell Distribution Width 13.0 10.0-14.5 % Platelet Count 299 130-400 10^3/uL Mean Platelet Volume 9.3 9.0-12.2 fL Immature Granulocyte % (Auto) 0 % Neutrophils (%) (Auto) 57 42-75 % Lymphocytes (%) (Auto) 30 12-44 % Monocytes (%) (Auto) 10 0-12 % Eosinophils (%) (Auto) 1 0-10 % Basophils (%) (Auto) 1 0-10 % Neutrophils # (Auto) 3.4 1.8-7.8 10^3/uL Lymphocytes # (Auto) 1.8 1.0-4.0 10^3/uL Monocytes # (Auto) 0.6 0.0-1.0 10^3/uL Eosinophils # (Auto) 0.1 0.0-0.3 10^3/uL Basophils # (Auto) 0.1 0.0-0.1 10^3/uL Immature Granulocyte # (Auto) 0.0 0.0-0.1 10^3/uL Sodium Level 141 135-145 MMOL/L Potassium Level 4.2 3.6-5.0 MMOL/L Chloride Level 106 98-107 MMOL/L Carbon Dioxide Level 26 21-32 MMOL/L Anion Gap 9 5-14 MMOL/L Blood Urea Nitrogen 13 7-18 MG/DL Creatinine 1.42 H 0.60-1.30 MG/DL Estimat Glomerular Filtration Rate 64 BUN/Creatinine Ratio 9 Glucose Level 104 70-105 MG/DL Calcium Level 9.2 8.5-10.1 MG/DL Corrected Calcium 9.2 8.5-10.1 MG/DL Total Bilirubin 0.6 0.1-1.0 MG/DL Aspartate Amino Transf (AST/SGOT) 23 5-34 U/L Alanine Aminotransferase (ALT/SGPT) 17 0-55 U/L Alkaline Phosphatase 71 40-136 U/L C-Reactive Protein High Sensitivity 0.05 0.00-0.50 MG/DL Total Protein 6.9 6.4-8.2 GM/DL Albumin 4.0 3.2-4.5 GM/DL Lipase 22 8-78 U/L My Orders Orders - ALLEY LEGER MD Cbc With Automated Diff (07/15/21 13:56) Comprehensive Metabolic Panel (07/15/21 13:56) Lipase (07/15/21 13:56) Ua Culture If Indicated (07/15/21 13:56) Hs C Reactive Protein (07/15/21 13:56) Chest Pa/Lat (2 View) (07/15/21 13:56) Ed Iv/Invasive Line Start (07/15/21 13:56) Fentanyl Inj (Sublimaze Injection) (07/15/21 14:00) Us Gallbladder [id number] (07/15/21 13:56) Medications Given in ED Current Medications Medications Dose Ordered Sig/Yazmin Route Start Time Stop Time Status Last Admin Dose Admin Fentanyl Citrate 75 mcg ONCE ONCE IVP 07/15/21 14:00 07/15/21 14:01 DC 07/15/21 14:10 75 MCG Vital Signs/I&O 07/15/21 13:18 Temp 36.6 Pulse 73 Resp 18 B/P (MAP) 157/103 (121) Pulse Ox 97 Capillary Refill : Less Than 3 Seconds Blood Pressure Mean: 121 Departure Impression Primary Impression: Chest wall pain Additional Impression: Right upper quadrant pain Disposition: HOME, SELF-CARE Condition: Improved Departure-Patient Inst. Referrals: GUERDA RO MD (PCP/Family) Primary Care Physician Patient Instructions: Chest Pain That Is Not Caused by the Heart (DC) Add. Discharge Instructions: The pain in your chest seems to be musculoskeletal in nature. You may use your Percocet as previously directed to treat this pain. If your pain not controlled by Percocet, consider starting the prednisone prescription provided from the ER. Your right upper abdominal pain is of uncertain cause. Your lab evaluation and ultrasound of the gallbladder were unremarkable. Consider adhering to a clear liquid diet the remainder of the day to rest your bowels. Call with questions or concerns and return to the ER if you have worsening symptoms. All discharge instructions reviewed with patient and/or family. Voiced understanding. Scripts Prednisone (Prednisone) 20 Mg Tab 40 MG PO DAILY, #6 TAB 0 Refills Prov: ALLEY LEGER MD 07/15/21 ALLEY LEGER MD Jul 15, 2021 15:14
--- NOTE | 2021-07-15 15:23 | Diagnostic Imaging Report ---
INDICATION: Right upper quadrant pain and rib pain. EXAMINATION: Ultrasound gallbladder, 07/15/2021. FINDINGS: The liver demonstrates a focal hyperechoic area measuring 1.2 x 1.3 x 1.4 cm in size. Multiple smaller hyperechoic areas noted throughout the liver, possibly hemangiomas. This is better characterized with a liver protocol CT. No intrahepatic biliary dilatation is seen. Gallbladder wall does not appear thickened. There is no pericholecystic fluid. No cholelithiasis. Common duct normal in size. Pancreas obscured by bowel gas. Visualized aspects unremarkable. Visualized aorta and IVC unremarkable. Right kidney 10.6 cm in length. There is no hydronephrosis. There is no ascites. IMPRESSION: Multiple echogenic foci within the liver, possibly hemangiomas. However, dedicated liver protocol CT on a nonemergent basis could better characterize these lesions. Remaining visualized structures unremarkable. Dictated by: Dictated on workstation # [id number]
[2021-07-15 15:32] VITALS: BP 145/95
== END 2021-07-15 15:32 | disposition home or self-care (01) ==
LOC: EDUNIT# 13:03 → ER 13:06
DX: R07.89 Other chest pain (principal); R10.11 Right upper quadrant pain; I10 Essential (primary) hypertension; I25.10 Atherosclerotic heart disease of native coronary artery without angina pectoris; F41.9 Anxiety disorder, unspecified; K21.9 Gastro-esophageal reflux disease without esophagitis; F20.9 Schizophrenia, unspecified; Z79.82 Long term (current) use of aspirin; Z79.01 Long term (current) use of anticoagulants; Z79.899 Other long term (current) drug therapy
CPT/HCPCS: 36415; 71046; 76705; 80053; 83690; 85025; 86141

== ENCOUNTER → 2021-09-08 | Outpatient (CLI) | payer MEDICAID, MEDICARE ==
[~2021-09-08] MED LIST changes: +HOLD METFORMIN - RECEIVED CONTRAST 20 ML VIAL IV SCH; +IOHEXOL 350 MG/ML 100 ML (OMNIPAQUE 350) VIAL IV ONE; +NS 100 ML (IVPB) BAG IV ONE
--- NOTE | 2021-09-08 16:20 | Diagnostic Imaging Report ---
PROCEDURE: CT abdomen with and without contrast. TECHNIQUE: Multiple contiguous axial CT images of the abdomen were obtained prior to and after intravenous administration of iodinated contrast. Auto Exposure Controls were utilized during the CT exam to meet ALARA standards for radiation dose reduction. INDICATION: Liver lesion follow-up CT abdomen with and without contrast Images of the abdomen with attention to liver were done without contrast, during the arterial phase of contrast opacification, during the venous phase of contrast opacification and on the delayed 10 minute sequence. On the venous phase there is a 6 mm low-density lesion in the medial segment left lobe of liver adjacent to the falciform ligament. There is also a 6 mm low-density lesion in the lateral segment left lobe of liver. Neither of these lesions are seen on any of the other sequences. These likely represent hemangiomas. Portal vein is patent. The gallbladder is decompressed. The pancreas appears normal. Common duct is not dilated. Kidneys and adrenals are unremarkable. Spleen is not enlarged. There is no lymphadenopathy seen. Visualized portions of large and small bowel appear normal. The appendix appears normal. IMPRESSION: 2 small lesions in the left lobe of liver likely hemangiomas. Dictated by: Dictated on workstation # [id number]
== END ==
LOC: RAD 11:12
PROVIDERS: ATTEND Internal Medicine
DX: K76.9 Liver disease, unspecified (principal)
CPT/HCPCS: 74170

== ENCOUNTER 2022-09-20 20:05 | Outpatient (CLI) | payer MEDICARE, MEDICAID ==
[~2022-09-20 20:05] MED LIST changes: +CLOP-31 PO; -CLOP75TA69 PO; -HOLD METFORMIN - RECEIVED CONTRAST 20 ML VIAL IV SCH; +HYDR-4085 PO; -HYDR-87 PO; -IOHEXOL 350 MG/ML 100 ML (OMNIPAQUE 350) VIAL IV ONE; -NS 100 ML (IVPB) BAG IV ONE
== END 2022-09-21 06:11 | disposition home or self-care (01) ==
LOC: SLEEP 20:05
PROVIDERS: ATTEND Otolaryngology Otolaryngology/Facial Plastic Surgery
DX: G47.33 Obstructive sleep apnea (adult) (pediatric) (principal); I25.9 Chronic ischemic heart disease, unspecified
CPT/HCPCS: 95810

== ENCOUNTER 2022-09-26 05:35 | Outpatient (CLI) | payer MEDICARE, MEDICAID ==
[~2022-09-26] VITALS: Ht 176.5 cm; Wt 127.5 kg
== END 2022-09-26 11:18 ==
LOC: PREOP 05:35
PROVIDERS: ATTEND Surgery
DX: Z01.818 Encounter for other preprocedural examination (principal)

== ENCOUNTER 2022-10-09 07:53 | Day surgery (SDC) | payer MEDICARE, MEDICAID ==
[~2022-10-09] VITALS: Ht 176.5 cm; Wt 127.5 kg
[2022-10-09] MEDS ORDERED: LACTATED RINGERS 1,000 ML IV STA (08:10)
[2022-10-09 08:31] VITALS: BP 158/107
[2022-10-09] MEDS ORDERED: PROPOFOL INJECTION 50 ML IV ONE (09:50)
[2022-10-09] MEDS ORDERED: MIDAZOLAM 2 MG/2 ML (VERSED) VIAL ONE (09:50)
[2022-10-09 10:27] VITALS: BP 120/81
--- NOTE | 2022-10-09 10:27 | Progress Note-Post Operative ---
Post-Operative Progess Note Surgeon (s)/Deckhand Tuna Boat (s) Surgeon LANDON GUTIERREZ DO Deckhand Tuna Boat: N/A Pre-Operative Diagnosis rectal mucosal change Post-Operative Diagnosis Colon Polyps Procedure & Operative Findings Date of Procedure 10/09/22 Procedure Performed/Findings Colonoscopy w/ hot biopsies polypectomy x4 Anesthesia Type per JIG BUILDER HELPER Estimated Blood Loss Estimated blood loss (mL): None Specimens/Packing Specimens Removed Cecum; Descending; Sigmoid LANDON GUTIERREZ DO Oct 09, 2022 10:27
--- NOTE | 2022-10-09 10:30 | Discharge Inst-Simple/Standard ---
Discharge Inst-Standard Patient Instructions/Follow Up Plan of Care/Instructions/FU: Start plavix and aspirin in 2 days F/u in 2 weeks with Radha Activity as Tolerated: Yes Discharge Diet: No Restrictions LANDON GUTIERREZ DO Oct 09, 2022 10:30
[2022-10-09 10:32] VITALS: BP 161/97
[2022-10-09 10:40] VITALS: BP 161/97
[2022-10-09 10:57] VITALS: BP 152/89
--- NOTE | 2022-10-09 13:44 | OPERATIVE REPORT ---
DATE OF SERVICE: 10/09/2022 PREOPERATIVE DIAGNOSES: Melena, history of polyps. POSTOPERATIVE DIAGNOSIS: Colon polyps. PROCEDURE: Colonoscopy with hot biopsy polypectomy x4. SURGEON: Landon Garcia DO ANESTHESIA: Per CORPORATE OPERATIONS COMPLIANCE MANAGER. ESTIMATED BLOOD LOSS: None. COMPLICATIONS: None. INDICATIONS: The patient is a 52-year-old male with some melena and history of polyps. He understands risks and benefits of procedure and wished to proceed. Consent was signed and on chart. DESCRIPTION OF PROCEDURE: The patient was taken to endoscopy suite, placed in left lateral recumbent position. Timeout was performed. Digital rectal exam was performed. No palpable polyps, masses or ulcerations. Scope was inserted in the rectum, advanced all the way to the cecum with minimal difficulty. Prep was adequate with irrigation and suction. Scope was slowly retracted back to the cecum, polyps were present, which hot biopsy polypectomy was performed. Scope was then continuously slowly retracted back. No polyps, masses or ulcerations in the ascending and transverse colon. In the descending colon, another polyp was present, which hot biopsy polypectomy was performed. Scope was then continuously slowly retracted back into the sigmoid where another 2 polyps were present, which hot biopsy polypectomies were performed. Scope was then continuously slowly retracted back to the rectum where it was also retroflexed noting no other pathology. Scope was returned to its normal position, slowly withdrawn until completely removed. The patient tolerated the procedure well without complications, taken to recovery in stable condition. RECOMMENDATIONS: The patient will repeat colonoscopy in 5 years. Any issues before that, be seen at that time. He will follow up in 2 weeks to discuss pathology results. Job ID: [id number] DocumentID: [id number] Dictated Date: 10/09/2022 10:29:09 Crepe Machine Operator Date: 10/09/2022 13:42:00 Dictated By: LANDON GARCIA DO
--- NOTE | 2022-10-09 14:58 | Anesthesia-General Post-Op ---
MAC Patient Condition Mental Status/LOC: Same as Preop Cardiovascular: Satisfactory Nausea/Vomiting: Absent Respiratory: Satisfactory Pain: Controlled Complications: Absent Post Op Complications Complications None Follow Up Care/Instructions Patient Instructions None needed. Anesthesiology Discharge Order Discharge Order Patient is doing well, no complaints, stable vital signs, no apparent adverse anesthesia problems. No complications reported per nursing. LUPE NAVARRO CRNA Oct 09, 2022 14:58
== END 2022-10-09 11:10 | disposition home or self-care (01) ==
LOC: ENDO 07:53
PROVIDERS: ATTEND Surgery
DX: D12.0 Benign neoplasm of cecum (principal); D12.4 Benign neoplasm of descending colon; K63.5 Polyp of colon; Z87.891 Personal history of nicotine dependence; E66.01 Morbid (severe) obesity due to excess calories; Z68.41 Body mass index [BMI] 40.0-44.9, adult; Z95.5 Presence of coronary angioplasty implant and graft; Z28.310 Unvaccinated for COVID-19

== ENCOUNTER → 2023-05-22 | Outpatient (CLI) | payer MEDICARE ==
--- NOTE | 2023-05-22 10:21 | Diagnostic Imaging Report ---
PROCEDURE: MRI lumbar spine. TECHNIQUE: Multiplanar, multisequence MRI of the lumbar spine was performed without contrast. INDICATION: Low back pain. Correlation is made with prior MRI lumbar spine study from 02/01/2018. Curvature and alignment of the lumbar spine is normal. The vertebral body heights and marrow signal intensity is normal. No marrow edema or geographic marrow lesion is identified. There is mild loss of height and signal intensity to L5-S1 disc compatible with degenerative disc disease. This is similar to prior exam from 2018. All other lumbar discs demonstrate normal height and normal hydration. The conus is unremarkable at the L1-L2 level. T12-L1: Central canal neural foramina are widely patent. L1-2: Central canal neural foramina appear widely patent. L2-L3: No significant central canal or neural foraminal narrowing is detected. L3-L4: No significant central canal or neural foraminal narrowing is detected. L4-L5: Central canal is patent. There does appear to be a very mild left-sided lateral recess and neural foraminal narrowing. L5-S1: Broad-based disc/osteophyte complex is noted, flattening the ventral thecal sac. There is ligamentous thickening and facet changes as well. There is significant narrowing of the lateral recesses bilaterally, similar to prior exam. There is also moderate bilateral neural foraminal narrowing, similar to prior exam. Paraspinous tissues are unremarkable. IMPRESSION: Lower lumbar spondylosis, greatest at the L5-S1 level where there is bilateral lateral recess and neural foraminal narrowing, similar to examination from 2018. In addition, there appears to be some left-sided lateral recess and neural foraminal narrowing at L4-L5 level on today's study. Dictated by: Dictated on workstation # [id number]
== END ==
LOC: RAD 08:09
PROVIDERS: ATTEND Pain Medicine Interventional Pain Medicine
DX: M47.26 Other spondylosis with radiculopathy, lumbar region (principal); M48.061 Spinal stenosis, lumbar region without neurogenic claudication; M48.07 Spinal stenosis, lumbosacral region
CPT/HCPCS: 72148

== ENCOUNTER 2023-07-02 16:17 | Emergency (ER) | payer MEDICARE ==
[~2023-07-02] VITALS: Ht 175.2 cm; Wt 108.8 kg
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
--- NOTE | 2023-07-02 16:55 | Diagnostic Imaging Report ---
INDICATION: Left middle finger injury. 3 views of left hand show no fracture. There is slight widening of the scapholunate joint space. IMPRESSION: Separation of the scapholunate joint space suggesting ligamentous injury. Dictated by: Dictated on workstation # [id number]
[2023-07-02 17:32] VITALS: BP 138/81
== END 2023-07-02 17:32 | disposition home or self-care (01) ==
LOC: EDUNIT# 16:17 → ER 16:20
DX: S69.92XA Unspecified injury of left wrist, hand and finger(s), initial encounter (principal); W22.8XXA Striking against or struck by other objects, initial encounter; Y93.72 Activity, wrestling
CPT/HCPCS: 73130

== ENCOUNTER 2023-07-25 07:47 | Emergency (ER) | payer OTHER, MEDICARE ==
[~2023-07-25] VITALS: Ht 175 cm; Wt 107.0 kg
[2023-07-25 07:50] VITALS: BP 100/106
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
== END 2023-07-25 08:40 | disposition home or self-care (01) ==
LOC: EDUNIT# 07:47 → ER 07:50
DX: M54.2 Cervicalgia (principal); M25.532 Pain in left wrist; Z79.899 Other long term (current) drug therapy; Z79.1 Long term (current) use of non-steroidal anti-inflammatories (NSAID); V49.9XXA Car occupant (driver) (passenger) injured in unspecified traffic accident, initial encounter; Y92.481 Parking lot as the place of occurrence of the external cause
CPT/HCPCS: 73110

== ENCOUNTER 2023-07-30 08:21 | Emergency (ER) | payer OTHER, MEDICARE ==
[2023-07-30] MEDS ORDERED: ORPHENADRINE 60 MG/2 ML AMP (ED ONLY) IV ONE (09:30)
[2023-07-30] MEDS ORDERED: ONDANSETRON INJECTION 4 MG/2 ML (SDV) IVP ONE (09:30)
[2023-07-30] MEDS ORDERED: KETOROLAC INJ 30 MG/ML VIAL IVP ONE (09:30)
[2023-07-30] MEDS ORDERED: LACTATED RINGERS 1,000 ML 1,000 ML IV ONE (09:30)
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
[2023-07-30 10:19] LABS: BASOPHILS # (AUTO) 0.1 10^3/uL (0.0-0.1); BASOPHILS % (AUTO) 1 % (0-10); EOSINOPHILS # (AUTO) 0.1 10^3/uL (0.0-0.3); EOSINOPHILS % (AUTO) 2 % (0-10); HEMATOCRIT 47 % (40-54); HEMOGLOBIN 15.5 g/dL (13.3-17.7); LYMPHOCYTES # (AUTO) 2.2 10^3/uL (1.0-4.0); LYMPHOCYTES % (AUTO) 41 % (12-44); MEAN CORPUSCULAR HEMOGLOBIN 29 pg (25-34); MEAN CORPUSCULAR HGB CONC 33 g/dL (32-36); MEAN CORPUSCULAR VOLUME 88 fL (80-99); MEAN PLATELET VOLUME 9.9 fL (9.0-12.2); MONOCYTES # (AUTO) 0.4 10^3/uL (0.0-1.0); MONOCYTES % (AUTO) 7 % (0-12); NEUTROPHILS # (AUTO) 2.7 10^3/uL (1.8-7.8); NEUTROPHILS % (AUTO) 50 % (42-75); PLATELET COUNT 302 10^3/uL (130-400); WHITE BLOOD COUNT 5.4 10^3/uL (4.3-11.0)
[2023-07-30 10:29] LABS: ALBUMIN 4.4 GM/DL (3.2-4.5); BILIRUBIN,TOTAL 0.7 MG/DL (0.1-1.0); CALCIUM 9.3 MG/DL (8.5-10.1); CREATININE SERUM 1.12 MG/DL (0.60-1.30); POTASSIUM 3.8 MMOL/L (3.6-5.0); TOTAL PROTEIN 7.7 GM/DL (6.4-8.2)
[2023-07-30] MEDS ORDERED: HYDROmorphone INJECTION 2 MG/ML VIAL IV ONE (11:30)
[2023-07-30] MEDS ORDERED: methylPREDNISolone INJ 125 MG VIAL IVP ONE (12:45)
[2023-07-30] MEDS ORDERED: CYCL10TA25 PO (12:47)
[2023-07-30 13:12] VITALS: BP 122/81
== END 2023-07-30 13:11 | disposition home or self-care (01) ==
LOC: EDUNIT# 08:21 → ER 08:22
DX: S06.0X0A Concussion without loss of consciousness, initial encounter (principal); G43.909 Migraine, unspecified, not intractable, without status migrainosus; M54.2 Cervicalgia; V89.2XXA Person injured in unspecified motor-vehicle accident, traffic, initial encounter; Y92.410 Unspecified street and highway as the place of occurrence of the external cause
CPT/HCPCS: 36415; 70450; 72125; 72128; 80053; 83735; 85025